=== PATIENT | male | born 1965 | race Caucasian/White ===

== ENCOUNTER → 2018-08-07 | Day surgery (SDC) | payer OTHER ==
[2018-08-07 10:37] VITALS: BP 127/83; PULSE 85; RESP 18; TEMP 98.1
[2018-08-07 10:48] LABS: Basophils # (A) 0.1 k/uL (0-0.2); Basophils % (A) 1 %; Eosinophils # (A) 0.4 k/uL (0-0.7); Eosinophils % (A) 6 %; HCT 46.9 % (39.0-53.0); HGB 15.9 gm/dL (13.0-17.5); Lymphocytes # (A) 1.3 k/uL (1.0-4.8); Lymphocytes % (A) 22 %; MCHC 33.8 g/dL (31.0-37.0); MCV 82.8 fL (80.0-100.0); Mean Platelet Volume 6.9; Monocytes # (A) 0.4 k/uL (0-1.0); Monocytes % (A) 8 %; Neutrophils # (A) 3.4 k/uL (1.3-7.7); Neutrophils % (A) 61 %; Platelet Count 279 k/uL (150-450); RBC 5.67 m/uL (4.30-5.90); RDW 13.5 % (11.5-15.5); WBC 5.7 k/uL (3.8-10.6)
[2018-08-07 11:03] LABS: African American GFR (CKD) >90 (>60 ml/min/1.73 sqM); Anion Gap 12 mmol/L; Blood Urea Nitrogen 19 mg/dL (9-20); Carbon Dioxide 21 mmol/L (22-30); Chloride 105 mmol/L (98-107); Potassium 4.7 mmol/L (3.5-5.1); Sodium 138 mmol/L (137-145)
== END ==
LOC: CATHCVL 09:58
PROVIDERS: ATTEND Radiology Diagnostic Radiology
DX: E11.621 Type 2 diabetes mellitus with foot ulcer (principal); E78.00 Pure hypercholesterolemia, unspecified; Z83.3 Family history of diabetes mellitus; Z82.49 Family history of ischemic heart disease and other diseases of the circulatory system; Z79.84 Long term (current) use of oral hypoglycemic drugs; Z79.82 Long term (current) use of aspirin; Z79.899 Other long term (current) drug therapy; Z88.0 Allergy status to penicillin
CPT/HCPCS: 80051; 82565; 84520; 85025

== ENCOUNTER 2018-08-10 09:54 | Inpatient (IN) | payer OTHER ==
[2018-08-10 11:12] LABS: Basophils # (A) 0.1 k/uL (0-0.2); Basophils % (A) 1 %; Eosinophils # (A) 0.5 k/uL (0-0.7); Eosinophils % (A) 8 %; HCT 46.5 % (39.0-53.0); HGB 15.8 gm/dL (13.0-17.5); Lymphocytes # (A) 1.1 k/uL (1.0-4.8); Lymphocytes % (A) 17 %; MCH 28.4 pg (25.0-35.0); MCV 83.7 fL (80.0-100.0); Mean Platelet Volume 7.3; Monocytes # (A) 0.4 k/uL (0-1.0); Monocytes % (A) 7 %; Neutrophils % (A) 65 %; Platelet Count 267 k/uL (150-450); RBC 5.55 m/uL (4.30-5.90); RDW 15.8 % (11.5-15.5); WBC 6.1 k/uL (3.8-10.6)
[2018-08-10 11:15] LABS: Appearance,Urine Clear (Clear); Bilirubin,Urine Negative (Negative); Blood,Urine Negative (Negative); Color,Urine Light Yellow; Glucose,Urine (UA) 4+ (Negative); Ketones,Urine Negative (Negative); Leukocyte Esterase,Urine Negative (Negative); Nitrite,Urine Negative (Negative); Protein,Urine Negative (Negative); Specific Gravity,Urine 1.024 (1.001-1.035); Urobilinogen,Urine <2.0 mg/dL (<2.0)
[2018-08-10 11:20] LABS: ALT 27 U/L (21-72); AST 23 U/L (17-59); African American GFR (CKD) >90 (>60 ml/min/1.73 sqM); Albumin 4.5 g/dL (3.5-5.0); Alkaline Phosphatase 70 U/L (38-126); Anion Gap 15 mmol/L; Blood Urea Nitrogen 23 mg/dL (9-20); Calcium 9.2 mg/dL (8.4-10.2); Carbon Dioxide 20 mmol/L (22-30); Chloride 103 mmol/L (98-107); Glucose 215 mg/dL (74-99); Potassium 4.7 mmol/L (3.5-5.1); Sodium 138 mmol/L (137-145); Total Bilirubin 0.5 mg/dL (0.2-1.3); Total Protein 7.1 g/dL (6.3-8.2)
[2018-08-10] MEDS: SODIUM CHLORIDE 0.9% 500 ML 500 ML IV SCH (11:20)
--- NOTE | 2018-08-10 11:32 | XR ---
EXAMINATION TYPE: XR foot complete LT DATE OF EXAM: 08/10/2018 CLINICAL HISTORY: Nonhealing ulcer of the plantar aspect of the left foot. TECHNIQUE: Frontal, lateral, and oblique images of the left foot are obtained. COMPARISON: None FINDINGS: There is no acute fracture/dislocation evident in the left foot. Small vessel atheroscler osis is seen throughout. The joint spaces in the left foot appear within normal limits. The overlyin g soft tissue appears unremarkable. Superficial dressing is seen over the plantar aspect of the proxi mal phalanges on the lateral view. No periosteal reaction or osseous erosion is seen on the left foot . There is a moderate plantar enthesophyte. No subcutaneous emphysema in the focal soft tissue swelli ng seen deep to the superficial skin dressing. IMPRESSION: 1. Soft tissue swelling over the plantar aspect of the left forefoot without osseous findings to sugg est osteomyelitis. No subcutaneous emphysema is seen. 2. No acute fracture or dislocation in the left foot.
[2018-08-10] MEDS ORDERED: SODIUM CHLORIDE 0.9% 1,000 ML IV STA (11:45)
--- NOTE | 2018-08-10 11:49 | ED ---
General Adult HPI - General Chief complaint: Extremity Problem,Nontraumatic Stated complaint: Foot pain/infection Time Seen by Provider: 08/10/18 10:05 Source: patient, RN notes reviewed Mode of arrival: ambulatory Limitations: no limitations - History of Present Illness Initial comments: 53-year-old male with a past medical history of diabetes, CAD, hyperlipidemia presents to the emergency department for a chief complaint of diabetic foot ulcer. Patient states he has had an ulcer on the bottom of his left foot for several weeks. States he has been on oral antibiotics including Bactrim and 2 other unknown antibiotics for the past 3 weeks as well. States that he was supposed to have a PICC line placed for IV antibiotics on Friday but his insur karma did not except this so it the last night he could not have PICC line in placed. Patient states that over the weekend he started worsening redness of the left foot as well as pain. States his infectious disease doctor is concerned it may be into his bone. States that when he called today they wanted him to be seen in the emergency department for possible IV antibiotics as well as ID consult. Patient denies fevers or chills.Patient has no other complaints at this time including shortness of breath, chest pain, abdominal pain, nausea or vomiting, headache, or visual changes. - Related Data Home Medications Medication Instructions Recorded Confirmed Aspirin [Adult Low Dose Aspirin EC] 81 mg PO HS 08/06/18 08/10/18 Atorvastatin [Lipitor] 40 mg PO HS 08/06/18 08/10/18 Ertugliflozin Pidolate [Steglatro] 15 mg PO DAILY 08/06/18 08/10/18 Ticagrelor [Brilinta] 90 mg PO BID 08/06/18 08/10/18 metFORMIN HCL [Glucophage] 1,000 mg PO BID 08/06/18 08/10/18 sitaGLIPtin [Januvia] 100 mg PO DAILY 08/06/18 08/10/18 Sulfamethoxazole/Trimethoprim 1 tab PO BID 08/10/18 08/10/18 [Bactrim DS 800-160 mg] Allergies Allergy/AdvReac Type Severity Reaction Status Date / Time Penicillins Allergy Anaphylaxis Verified 08/10/18 10:39 Review of Systems ROS Statement: Those systems with pertinent positive or pertinent negative responses have been documented in the HPI. ROS Other: All systems not noted in ROS Statement are negative. Past Medical History Past Medical History: Coronary Artery Disease (CAD), Diabetes Mellitus, Hyperlipidemia History of Any Multi-Drug Resistant Organisms: None Reported Past Surgical History: Back Surgery, Heart Catheterization With Stent, Orthopedic Surgery Past Psychological History: No Psychological Hx Reported Smoking Status: Never smoker Past Alcohol Use History: Occasional Past Drug Use History: None Reported General Exam Limitations: no limitations General appearance: alert, in no apparent distress Head exam: Present: atraumatic, normocephalic, normal inspection Eye exam: Present: normal appearance, PERRL, EOMI. Absent: scleral icterus, conjunctival injection, periorbital swelling ENT exam: Present: normal exam, mucous membranes moist Neck exam: Present: normal inspection, full ROM. Absent: tenderness, meningismus, lymphadenopathy Respiratory exam: Present: normal lung sounds bilaterally. Absent: respiratory distress, wheezes, rales, rhonchi, stridor Cardiovascular Exam: Present: regular rate, normal rhythm, normal heart sounds. Absent: systolic murmur, diastolic murmur, rubs, gallop, clicks Extremities exam: Present: full ROM (Full Range motion of the left foot.), normal capillary refill (Capillary refill less than 2 seconds, DP pulse 2+ in the left lower extremity), other (ulcer noted over plantar 4th and 5th MTP with some involvement between 4th and 5th digits of left foot. mild erthema and edema noted of left foot) Course Vital Signs 08/10/18 09:58 Temperature 97.6 F Pulse Rate 106 H Respiratory 16 Rate Blood Pressure 136/76 O2 Sat by Pulse 97 Oximetry Medical Decision Making - Medical Decision Making 53-year-old male with a past medical history of diabetes, CAD, hyperlipidemia presents to the emergency determine for chief clean of diabetic foot ulcer. States he has been on his left foot for several weeks. States that he has been on 3 courses of oral antibiotics including Bactrim. He was supposed a PICC line placed on Friday but his insurance did not cover it so he did not have this done. States over the weekend he started worsening pain redness and swelling in the left foot. States that he called his infectious disease doctor and he told them to come to the emergency department for admission for IV antibiotics and infectious disease consult. On exam patient does have a small diabetic ulcer noted with erythema noted of the plantar and dorsal left foot. Mild edema present. She was initially tachycardic at 106 however this did decreased to the 80s. CBC shows a normal white count. CMP is unremarkable. However lactic acid 3.1. 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 X-ray of the left foot showed soft tissue swelling however no osseous finding to suggest osteomyelitis or subcutaneous emphysema seen. Case was discussed with Dr. patterson, patient will be admitted for IV antibiotics and infectious disease consult. - Lab Data Result diagrams: 08/10/18 10:54 08/10/18 10:54 Lab Results 08/10/18 08/10/18 08/10/18 Range/Units 10:54 10:54 10:54 WBC 6.1 (3.8-10.6) k/uL RBC 5.55 (4.30-5.90) m/uL Hgb 15.8 (13.0-17.5) gm/dL Hct 46.5 (39.0-53.0) % MCV 83.7 (80.0-100.0) fL MCH 28.4 (25.0-35.0) pg MCHC 34.0 (31.0-37.0) g/dL RDW 15.8 H (11.5-15.5) % Plt Count 267 (150-450) k/uL Neutrophils % 65 % Lymphocytes % 17 % Monocytes % 7 % Eosinophils % 8 % Basophils % 1 % Neutrophils # 4.0 (1.3-7.7) k/uL Lymphocytes # 1.1 (1.0-4.8) k/uL Monocytes # 0.4 (0-1.0) k/uL Eosinophils # 0.5 (0-0.7) k/uL Basophils # 0.1 (0-0.2) k/uL Sodium 138 (137-145) mmol/L Potassium 4.7 (3.5-5.1) mmol/L Chloride 103 (98-107) mmol/L Carbon Dioxide 20 L (22-30) mmol/L Anion Gap 15 mmol/L BUN 23 H (9-20) mg/dL Creatinine 0.97 (0.66-1.25) mg/dL Est GFR (CKD-EPI)AfAm >90 (>60 ml/min/1.73 sqM) Est GFR (CKD-EPI)NonAf >90 (>60 ml/min/1.73 sqM) Glucose 215 H (74-99) mg/dL Plasma Lactic Acid Ian 3.1 H* (0.7-2.0) mmol/L Calcium 9.2 (8.4-10.2) mg/dL Total Bilirubin 0.5 (0.2-1.3) mg/dL AST 23 (17-59) U/L ALT 27 (21-72) U/L Alkaline Phosphatase 70 (38-126) U/L Total Protein 7.1 (6.3-8.2) g/dL Albumin 4.5 (3.5-5.0) g/dL Urine Color Urine Appearance (Clear) Urine pH (5.0-8.0) Ur Specific [place] (1.001-1.035) Urine Protein (Negative) Urine Glucose (UA) (Negative) Urine Ketones (Negative) Urine Blood (Negative) Urine Nitrite (Negative) Urine Bilirubin (Negative) Urine Urobilinogen (<2.0) mg/dL Ur Leukocyte Esterase (Negative) 08/10/18 Range/Units 10:54 WBC (3.8-10.6) k/uL RBC (4.30-5.90) m/uL Hgb (13.0-17.5) gm/dL Hct (39.0-53.0) % MCV (80.0-100.0) fL MCH (25.0-35.0) pg MCHC (31.0-37.0) g/dL RDW (11.5-15.5) % Plt Count (150-450) k/uL Neutrophils % % Lymphocytes % % Monocytes % % Eosinophils % % Basophils % % Neutrophils # (1.3-7.7) k/uL Lymphocytes # (1.0-4.8) k/uL Monocytes # (0-1.0) k/uL Eosinophils # (0-0.7) k/uL Basophils # (0-0.2) k/uL Sodium (137-145) mmol/L Potassium (3.5-5.1) mmol/L Chloride (98-107) mmol/L Carbon Dioxide (22-30) mmol/L Anion Gap mmol/L BUN (9-20) mg/dL Creatinine (0.66-1.25) mg/dL Est GFR (CKD-EPI)AfAm (>60 ml/min/1.73 sqM) Est GFR (CKD-EPI)NonAf (>60 ml/min/1.73 sqM) Glucose (74-99) mg/dL Plasma Lactic Acid Ian (0.7-2.0) mmol/L Calcium (8.4-10.2) mg/dL Total Bilirubin (0.2-1.3) mg/dL AST (17-59) U/L ALT (21-72) U/L Alkaline Phosphatase (38-126) U/L Total Protein (6.3-8.2) g/dL Albumin (3.5-5.0) g/dL Urine Color Light Yellow Urine Appearance Clear (Clear) Urine pH 5.0 (5.0-8.0) Ur Specific [place] 1.024 (1.001-1.035) Urine Protein Negative (Negative) Urine Glucose (UA) 4+ H (Negative) Urine Ketones Negative (Negative) Urine Blood Negative (Negative) Urine Nitrite Negative (Negative) Urine Bilirubin Negative (Negative) Urine Urobilinogen <2.0 (<2.0) mg/dL Ur Leukocyte Esterase Negative (Negative) Disposition Clinical Impression: Ulcer, Cellulitis Disposition: ADMITTED IP TO THIS HOSP Condition: Fair Is patient prescribed a controlled substance at d/c from ED?: No Referrals: Kwabena Bettencourt MD [Primary Care Provider] - 1-2 days Time of Disposition: 12:09
[2018-08-10] MEDS ORDERED: LEVOFLOXACIN 750MG-D5W PMX 750 MG in DEXTROSE/WATER 1 150ML.BAG IVPB STA (12:03)
[2018-08-10] MEDS ORDERED: traMADol 50 MG TAB PO PRN (12:04)
[2018-08-10] MEDS ORDERED: IBUPROFEN 400 MG TAB PO PRN (12:04)
[2018-08-10] MEDS ORDERED: NALOXONE 0.4 MG/ML 1 ML VIAL IV PRN (12:04)
[2018-08-10] MEDS ORDERED: CLINDAMYCIN 600 MG in DEXTROSE 5% IN WATER 50 ML IVPB ONE ×2 (12:15)
[2018-08-10] MEDS: SODIUM CHLORIDE 0.9% 1,000 ML IV SCH ×2 (12:28→23:04)
[2018-08-10 13:41] VITALS: BMI 39.1
[2018-08-10] MEDS ORDERED: CLINDAMYCIN 600 MG in DEXTROSE 5% IN WATER 50 ML IVPB STA ×2 (14:44)
[2018-08-10 17:04] LABS: Glucose,Whole Blood 120 mg/dL (75-99)
[2018-08-10] MEDS: INSULIN ASPART (NovoLOG) 100 UNIT/ML VIAL SQ SCH ×2 (17:07→20:42)
[2018-08-10] MEDS ORDERED: metFORMIN 500 MG TAB PO SCH (17:30)
[2018-08-10] MEDS: PIPERACILLIN-TAZOBACTAM 3.375 GM in SODIUM CHLORIDE 0.9% 100 ML IVPB SCH ×2 (17:45→23:29)
[2018-08-10] MEDS: metFORMIN 500 MG TAB PO SCH (17:45)
[2018-08-10] MEDS ORDERED: CLINDAMYCIN 600 MG in DEXTROSE 5% IN WATER 50 ML IVPB SCH ×2 (20:00)
--- NOTE | 2018-08-10 20:02 | P.HPIM ---
Review of Systems this is a pleasant 53 yo M with pmh of type 2 Diabetes Mellitus, hypertension, coronary artery disease status post stents, diabetic neuropathy, hyperlipidemia, diabetic retinopathy, chronic low back pain. He presents because of diabetic left foot ulcer, for four weeks , referred by his infectious specialist to the emergency , his picc line is not placed for insurance issues. Vitas looks stable, not showing unremarkable CBC and BMP, liver enzymes not elevated. High lactic acid of 3.1. Urinalysis sewing glucosuria with no infection. Would x-ray: Looks having osteomyelitis with no subcutaneous emphysema or acute fracture as per radiologist. Patient was started on clindamycin, hypoperfusion, and pain management with normal saline at 100 ml per hour. Past Medical History Past Medical History: Coronary Artery Disease (CAD), Diabetes Mellitus, Hyperlipidemia, Pneumonia Additional Past Medical History / Comment(s): NIDDM type II, neuropathy bilateral feet and hands, bilateral eye retinopathy, R eye glaucoma and the starting of cataracts bilateral eyes, bronchitis, chronic low back pain, some clausterphobia, current L planter ulcer. History of Any Multi-Drug Resistant Organisms: None Reported Past Surgical History: Back Surgery, Heart Catheterization With Stent, Orthopedic Surgery Additional Past Surgical History / Comment(s): Lumbar discectomy, PCI wit total of 5 stents done at [facility], L foot debridement by health promotion coordinator, L rotator cuff repair, nasal fracture with surgery. Past Anesthesia/Blood Transfusion Reactions: No Reported Reaction Date of Last Stent Placement:: 2017 Smoking Status: Never smoker - Past Family History Father Family Medical History: Cancer, Coronary Artery Disease (CAD), Diabetes Mellitus Additional Family Medical History / Comment(s): Father had lung cancer. He was a smoker. He was also diabetic and had heart disease which he of at the age of 67yrs. Mother Family Medical History: Coronary Artery Disease (CAD), Diabetes Mellitus Additional Family Medical History / Comment(s): Mother had a pacer and AICD. She of heart disease at the age of 77yrs. Medications and Allergies Home Medications Medication Instructions Recorded Confirmed Type Aspirin [Adult Low Dose Aspirin EC] 81 mg PO HS 08/06/18 08/10/18 History Atorvastatin [Lipitor] 40 mg PO HS 08/06/18 08/10/18 History Ertugliflozin Pidolate [Steglatro] 15 mg PO DAILY 08/06/18 08/10/18 History Ticagrelor [Brilinta] 90 mg PO BID 08/06/18 08/10/18 History metFORMIN HCL [Glucophage] 1,000 mg PO BID 08/06/18 08/10/18 History sitaGLIPtin [Januvia] 100 mg PO DAILY 08/06/18 08/10/18 History Sulfamethoxazole/Trimethoprim 1 tab PO BID 08/10/18 08/10/18 History [Bactrim DS 800-160 mg] Allergies Allergy/AdvReac Type Severity Reaction Status Date / Time Penicillins Allergy Anaphylaxis Verified 08/10/18 10:39 Physical Exam Vitals: Vital Signs Temp Pulse Pulse Resp BP BP Pulse Ox 08/10/18 12:45 97.8 F 88 16 120/81 98 08/10/18 12:31 85 18 119/81 98 08/10/18 09:58 97.6 F 106 H 16 136/76 97 Intake and Output 08/09/18 08/10/18 08/10/18 22:59 06:59 14:59 Other: Voiding Method Toilet Weight 113.398 kg GENERAL: The patient is alert and oriented x3, not in any acute distress. Well developed, well nourished. HEENT: Pupils are round and equally reacting to light. EOMI. No scleral icterus. No conjunctival pallor. Normocephalic, atraumatic. No pharyngeal erythema. No thyromegaly. CARDIOVASCULAR: S1 and S2 present. No murmurs, rubs, or gallops. PULMONARY: Chest is clear to auscultation, no wheezing or crackles. ABDOMEN: Soft, nontender, nondistended, normoactive bowel sounds. No palpable organomegaly. MUSCULOSKELETAL: No joint swelling or deformity. EXTREMITIES: No cyanosis, clubbing, or pedal edema. NEUROLOGICAL: Gross neurological examination did not reveal any focal deficits. SKIN: No rashes. Results CBC & Chem 7: 08/10/18 10:54 08/10/18 10:54 Labs: Abnormal Lab Results - Last 24 Hours (Table) 08/10/18 08/10/18 08/10/18 Range/Units 10:54 10:54 10:54 RDW 15.8 H (11.5-15.5) % Carbon Dioxide 20 L (22-30) mmol/L BUN 23 H (9-20) mg/dL Glucose 215 H (74-99) mg/dL Plasma Lactic Acid Ian 3.1 H* (0.7-2.0) mmol/L Urine Glucose (UA) (Negative) 08/10/18 Range/Units 10:54 RDW (11.5-15.5) % Carbon Dioxide (22-30) mmol/L BUN (9-20) mg/dL Glucose (74-99) mg/dL Plasma Lactic Acid Ian (0.7-2.0) mmol/L Urine Glucose (UA) 4+ H (Negative) Thrombosis Risk Factor Assmnt - Choose All That Apply Any of the Below Risk Factors Present?: Yes Each Factor Represents 1 point: Age 41-60 years, Obesity (BMI >25) Other Risk Factors: No Other congenital or acquired thrombophilia - If yes, enter type in comment: No Thrombosis Risk Factor Assessment Total Risk Factor Score: 2 Thrombosis Risk Factor Assessment Level: Low Risk Assessment and Plan Assessment: Diabetic left foot ulcer Type 2 diabetes mellitus Diabetic neuropathy High lactic acid Diabetic neuropathy History of coronary artery disease, status post stenting Hypertension Hyperlipidemia Plan: This is a pleasant 53 years old male who presents with diabetic left foot ulcer. Continue with antibiotics, called infectious disease consult. Continue with diabetes management and insulin sliding scale.Labs and medication were reviewed.. Continue same treatment. Continue with symptomatic treatment. Resume home medication. Monitor lytes and vitals. DVT and GI prophylaxis. Further recommendations of the clinical course of the patient DVT prophylaxis: Subcutaneous heparin GI Prophylaxis: Pepcid PT/OT: Pending Prognosis is guarded
[2018-08-10 20:43] LABS: Glucose,Whole Blood 121 mg/dL (75-99)
[2018-08-10] MEDS: ASPIRIN 81 MG PO SCH (21:28)
[2018-08-10] MEDS: TICAGRELOR 90 MG TAB PO SCH (21:28)
[2018-08-10] MEDS: ATORVASTATIN 40 MG TAB PO SCH (21:28)
[2018-08-10] MEDS: FAMOTIDINE 20 MG/2 ML VIAL IV SCH (21:29)
[2018-08-10] MEDS: HEPARIN SODIUM,PORCINE 5,000 UNIT/ML 1 ML VIAL SQ SCH ×2 (21:29→21:32)
[2018-08-10] MEDS: AMMONIUM LACTATE 12% LOTION 225 GM BTL TOPICAL SCH (21:31)
--- NOTE | 2018-08-11 00:24 | P.CONS ---
History of Present Illness - Reason for Consult Consult date: 08/10/18 - Chief Complaint Foot wound - History of Present Illness 53-year-old male that has a long-standing history of medical illnesses includes diabetes mellitus type 2 poorly controlled with hemoglobin A1c last December of greater than 11 and last check was about 7.4. The patient has significant underlying hypertension, cardiovascular disease and had obstructive lesions which required cardiac catheterization and stents. He remains on Effient after his procedures. The patient has had approximately a 40 pound weight loss over the last 5-6 months and over the last year or so approximately 100 pound weight loss. 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 He doesn't have diabetic shoes. He relates that he's noticed approximate 4 weeks ago the onset of an ulceration to the left foot plantar surface for which he applied some local care. It appeared to worsen over the weeks and eventually went and saw his primary care physician and was referred to podiatry. The conference planner referred him to an infusion Center in [place]. There was concern to acute osteomyelitis and workup was initiated and PICC line and outpatient clinic antibiotic therapy was requested. They're barely were some insurance issues the patient was suggested to go to the emergency center for further evaluation. He apparently called his doctor and asked if Friday would be okay today presented to the ER today. There is evidence of an underlying diabetic foot infection and does have some early radiological changes of osteomyelitis because he was admitted and a consult was requested. Review of Systems HEENT:Denies headache or acute visual change. Denies sinus or mouth discomforts. Denies neck stiffness or pain. Denies significant oral cavity pain. Denies difficulty on swallowing. Lungs: Denies significant shortness of breath, cough, sputum production, or hemoptysis. Cardiovascular: Denies significant shortness of breath, chest pain, chest wall pain, orthopnea, dyspnea on exertion, syncope Gastrointestinal:Denies nausea, vomiting, diarrhea, constipation, hematemesis, melena, hematochezia. No no significant change of bowel habit noticed. Musculoskeletal: Has some pain to his lower extremities apparently from some neuropathy as well as some mild arthritis Skin: Per the HPI he has new ulceration to the left foot plantar Neuro: Denies headache or visual change. No falls or seizures or known acute neurological problems but does have some chronic neuropathy from his uncontrolled diabetes Psychiatric:Denies anxiety or depression. Endocrine: Is doing well with fatigue and has purposely had weight loss at least 40 pounds over the last approximate 5 months Past Medical History Past Medical History: Coronary Artery Disease (CAD), Diabetes Mellitus, Hyperlipidemia, Pneumonia Additional Past Medical History / Comment(s): NIDDM type II, neuropathy bilateral feet and hands, bilateral eye retinopathy, R eye glaucoma and the starting of cataracts bilateral eyes, bronchitis, chronic low back pain, some clausterphobia, current L planter ulcer. History of Any Multi-Drug Resistant Organisms: None Reported Past Surgical History: Back Surgery, Heart Catheterization With Stent, Orthopedic Surgery Additional Past Surgical History / Comment(s): Lumbar discectomy, PCI wit total of 5 stents done at [facility], foot debridement by conference planner, L rotator cuff repair, nasal fracture with surgery. Past Anesthesia/Blood Transfusion Reactions: No Reported Reaction Date of Last Stent Placement:: 2017 Additional Psychological History / Comment(s): and lives in the family home with his and teenage son. Works for [employer] as a shipping clerk. experience. International travel. No animals in the home. No tobacco use. No recreational drug use or significant alcohol use is related Smoking Status: Never smoker - Past Family History Father Family Medical History: Cancer, Coronary Artery Disease (CAD), Diabetes Mellitus Additional Family Medical History / Comment(s): Father had lung cancer. He was a smoker. He was also diabetic and had heart disease which he of at the age of 67yrs. Mother Family Medical History: Coronary Artery Disease (CAD), Diabetes Mellitus Additional Family Medical History / Comment(s): Mother had a pacer and AICD. She of heart disease at the age of 77yrs. Medications and Allergies Home Medications and Allergies Comment(s): Current Medications Aspirin (Aspirin) 81 mg PO HS [facility] Last Admin: 08/10/18 21:28 Dose: 81 mg Documented by: Atorvastatin Calcium (Lipitor) 40 mg PO HS [facility] Last Admin: 08/10/18 21:28 Dose: 40 mg Documented by: Famotidine (Pepcid) 20 mg IV Q12HR [facility] Last Admin: 08/10/18 21:29 Dose: 20 mg Documented by: Heparin Sodium (Porcine) (Heparin) 5,000 unit SQ Q12HR [facility] Last Admin: 08/10/18 21:32 Dose: Not Given Documented by: Clindamycin Phosphate 600 mg/ (Dextrose/Water) 54 mls @ 50 mls/hr IVPB Q8H [facility] Last Admin: 08/10/18 21:30 Dose: 50 mls/hr Documented by: Sodium Chloride (Saline 0.9%) 1,000 mls @ 75 mls/hr IV .[id number] [facility] Last Admin: 08/10/18 23:04 Dose: Not Given Documented by: Piperacillin Sod/Tazobactam (Sod 3.375 gm/ Sodium Chloride) 100 mls @ 25 mls/hr IVPB Q8HR [facility] Last Admin: 08/10/18 23:29 Dose: 25 mls/hr Documented by: Insulin Aspart (Novolog) 0 unit SQ ACHS [facility]; Protocol Last Admin: 08/10/18 20:42 Dose: Not Given Documented by: Lactic Acid (Lac-Hydrin 12%) 1 applic TOPICAL BID [facility] Last Admin: 08/10/18 21:31 Dose: Not Given Documented by: Linagliptin (Tradjenta) 5 mg PO DAILY [facility] Metformin HCl (Glucophage) 1,000 mg PO BID-W/MEALS [facility] Last Admin: 08/10/18 17:45 Dose: 1,000 mg Documented by: Naloxone HCl (Narcan) 0.2 mg IV Q2M PRN PRN Reason: Opioid Reversal Ticagrelor (Brilinta) 90 mg PO BID [facility] Last Admin: 08/10/18 21:28 Dose: 90 mg Documented by: Tramadol HCl (Ultram) 50 mg PO Q6H PRN PRN Reason: Moderate Pain Home Medications Medication Instructions Recorded Confirmed Type Aspirin [Adult Low Dose Aspirin EC] 81 mg PO HS 08/06/18 08/10/18 History Atorvastatin [Lipitor] 40 mg PO HS 08/06/18 08/10/18 History Ertugliflozin Pidolate [Steglatro] 15 mg PO DAILY 08/06/18 08/10/18 History Ticagrelor [Brilinta] 90 mg PO BID 08/06/18 08/10/18 History metFORMIN HCL [Glucophage] 1,000 mg PO BID 08/06/18 08/10/18 History sitaGLIPtin [Januvia] 100 mg PO DAILY 08/06/18 08/10/18 History Sulfamethoxazole/Trimethoprim 1 tab PO BID 08/10/18 08/10/18 History [Bactrim DS 800-160 mg] Allergies Allergy/AdvReac Type Severity Reaction Status Date / Time Penicillins Allergy Anaphylaxis Verified 08/10/18 10:39 Physical Exam Vitals: Vital Signs Temp Pulse Pulse Resp BP BP Pulse Ox 08/10/18 21:00 98.0 F 100 20 110/74 97 08/10/18 12:45 97.8 F 88 16 120/81 98 08/10/18 12:31 85 18 119/81 98 08/10/18 09:58 97.6 F 106 H 16 136/76 97 Intake and Output 08/10/18 08/10/18 08/11/18 14:59 22:59 06:59 Intake Total 400 500 Balance 400 500 Intake: Oral 400 500 Other: Voiding Method Toilet Toilet # Voids 1 1 Weight 113.398 kg 53-year-old male with obesity, seems comfortable HEENT: Anicteric conjunctiva are pink and moist nasal mucosa grossly intact without significant lesions, there is no thrush. Dentition somewhat poor for age Neck: The neck is supple without significant lymphadenopathy or thyromegaly. Lungs: Good bilateral air entry without significant crackles or wheezing. There is no significant bronchial sounds. There is no egophony or dullness. Heart: Regular rate and rhythm with an audible S1-S2, no S3 soft S4 There is no significant murmur click or rub, PMI was nondisplaced. Abdomen: Obese, Positive bowel sounds soft and nontender without palpable masses or organomegaly. There was no guarding or rebound. Extremities: The upper extremities have excellent pulses they are symmetric, no significant petechiae or telangiectasia. No splinter hemorrhages were noted. The right lower extremities without acute abnormalities. The left foot shows evidence of the diabetic ulceration at the base of the fourth metatarsal, there is evidence of the swelling to the fourth and fifth toes with some ulceration at the base of both toes. There is some swelling to the foot. Some mild erythema to the left lower extremity to just above the ankle. There is minimal tenderness in the left groin with minimal lymphadenopathy but no other palpable lymph nodes are noted the rest of the skin is without rash or breakdown Neuro: Awake alert oriented to person place and time. There are no acute new gross focal sensory motor deficits. But does have the difficulty with the neuropathy to the bilateral feet. Results CBC & Chem 7: 08/10/18 10:54 08/10/18 10:54 Labs: Abnormal Lab Results - Last 24 Hours (Table) 08/10/18 08/10/18 08/10/18 Range/Units 10:54 10:54 10:54 RDW 15.8 H (11.5-15.5) % Carbon Dioxide 20 L (22-30) mmol/L BUN 23 H (9-20) mg/dL Glucose 215 H (74-99) mg/dL POC Glucose (mg/dL) (75-99) mg/dL Plasma Lactic Acid Ian 3.1 H* (0.7-2.0) mmol/L Urine Glucose (UA) (Negative) 08/10/18 08/10/18 08/10/18 Range/Units 10:54 17:02 20:37 RDW (11.5-15.5) % Carbon Dioxide (22-30) mmol/L BUN (9-20) mg/dL Glucose (74-99) mg/dL POC Glucose (mg/dL) 120 H 121 H (75-99) mg/dL Plasma Lactic Acid Ian (0.7-2.0) mmol/L Urine Glucose (UA) 4+ H (Negative) Microbiology - Last 24 Hours (Table) 08/10/18 16:30 Anaerobic Culture - Preliminary Foot - Left 08/10/18 16:30 Wound Culture - Preliminary Foot - Left Laboratory Results WBC 6.1 k/uL (3.8-10.6) 08/10/18 10:54 RBC 5.55 m/uL (4.30-5.90) 08/10/18 10:54 Hgb 15.8 gm/dL (13.0-17.5) 08/10/18 10:54 Hct 46.5 % (39.0-53.0) 08/10/18 10:54 MCV 83.7 fL (80.0-100.0) 08/10/18 10:54 MCH 28.4 pg (25.0-35.0) 08/10/18 10:54 MCHC 34.0 g/dL (31.0-37.0) 08/10/18 10:54 RDW 15.8 % (11.5-15.5) H 08/10/18 10:54 Plt Count 267 k/uL (150-450) 08/10/18 10:54 Neutrophils % 65 % 08/10/18 10:54 Lymphocytes % 17 % 08/10/18 10:54 Monocytes % 7 % 08/10/18 10:54 Eosinophils % 8 % 08/10/18 10:54 Basophils % 1 % 08/10/18 10:54 Neutrophils # 4.0 k/uL (1.3-7.7) 08/10/18 10:54 Lymphocytes # 1.1 k/uL (1.0-4.8) 08/10/18 10:54 Monocytes # 0.4 k/uL (0-1.0) 08/10/18 10:54 Eosinophils # 0.5 k/uL (0-0.7) 08/10/18 10:54 Basophils # 0.1 k/uL (0-0.2) 08/10/18 10:54 Sodium 138 mmol/L (137-145) 08/10/18 10:54 Potassium 4.7 mmol/L (3.5-5.1) 08/10/18 10:54 Chloride 103 mmol/L (98-107) 08/10/18 10:54 Carbon Dioxide 20 mmol/L (22-30) L 08/10/18 10:54 Anion Gap 15 mmol/L 08/10/18 10:54 BUN 23 mg/dL (9-20) H 08/10/18 10:54 Creatinine 0.97 mg/dL (0.66-1.25) 08/10/18 10:54 Est GFR (CKD-EPI)AfAm >90 (>60 ml/min/1.73 sqM) 08/10/18 10:54 Est GFR (CKD-EPI)NonAf >90 (>60 ml/min/1.73 sqM) 08/10/18 10:54 Glucose 215 mg/dL (74-99) H 08/10/18 10:54 POC Glucose (mg/dL) 121 mg/dL (75-99) H 08/10/18 20:37 POC Glu Tower Hand ID Yanna Craft 08/10/18 20:37 Lactic Ac Sepsis Rflx Y 08/10/18 11:25 Plasma Lactic Acid Ian 1.6 mmol/L (0.7-2.0) 08/10/18 14:43 Calcium 9.2 mg/dL (8.4-10.2) 08/10/18 10:54 Total Bilirubin 0.5 mg/dL (0.2-1.3) 08/10/18 10:54 AST 23 U/L (17-59) 08/10/18 10:54 ALT 27 U/L (21-72) 08/10/18 10:54 Alkaline Phosphatase 70 U/L (38-126) 08/10/18 10:54 Total Protein 7.1 g/dL (6.3-8.2) 08/10/18 10:54 Albumin 4.5 g/dL (3.5-5.0) 08/10/18 10:54 Urine Color Light Yellow 08/10/18 10:54 Urine Appearance Clear (Clear) 08/10/18 10:54 Urine pH 5.0 (5.0-8.0) 08/10/18 10:54 Ur Specific [place] 1.024 (1.001-1.035) 08/10/18 10:54 Urine Protein Negative (Negative) 08/10/18 10:54 Urine Glucose (UA) 4+ (Negative) H 08/10/18 10:54 Urine Ketones Negative (Negative) 08/10/18 10:54 Urine Blood Negative (Negative) 08/10/18 10:54 Urine Nitrite Negative (Negative) 08/10/18 10:54 Urine Bilirubin Negative (Negative) 08/10/18 10:54 Urine Urobilinogen <2.0 mg/dL (<2.0) 08/10/18 10:54 Ur Leukocyte Esterase Negative (Negative) 08/10/18 10:54 Microbiology 08/10/18 16:30 Foot - Left Anaerobic Culture - Preliminary 08/10/18 16:30 Foot - Left Wound Culture - Preliminary Assessment and Plan (1) Cellulitis of left foot Current Visit: Yes Status: Acute Code(s): L03.116 - CELLULITIS OF LEFT LOWER LIMB SNOMED Code(s): 846169517 (2) Diabetic ulcer of left foot associated with diabetes mellitus due to underlying condition, with fat layer exposed Narrative/Plan: 53-year-old male who has been having difficulties with his left foot for approximately 4 weeks. He has noticed an extensive medical history that includes underlying coronary disease status post stents, hypertension, diabetes mellitus type 2 very poorly controlled for a long time has more recently had improvements of his diabetic control he relates last A1c was 7.4. He's also had approximately a 40 pound weight loss since last December. The patient is really had some improvements but now has a complication of a diabetic foot ulceration and with his neuropathy has gotten a bit worse. He did seek outpatient care ended up in infectious disease physician in [place] and was referred to our facility. He was to come to the ER on Friday but chose today instead. At this time is evidence of diabetic foot ulceration and likely has underlying osteomyelitis. Bone scan as requested, wound culture is obtained. Patient will elevate the foot while he is in hospital. Therahoney dressing is been requested will change it daily for now. We'll continue to work with the diabetes care and appropriate high-protein diet to an help with wound healing Multivitamin with zinc is added. Is to have diabetic therapy the patient has a childhood ALLERGY to penicillin but he is really unaware of what occurred, has taken Keflex without difficulties. He recently has been on outpatient lab accident included ciprofloxacin, clindamycin, and Bactrim endostatin improvement. Consequently concerned about a polymicrobial infection related to the diabetic foot and Zosyn has been started and is being monitored. Current Visit: Yes Status: Acute Code(s): E08.621 - DIABETES MELLITUS DUE TO UNDERLYING CONDITION W FOOT ULCER; L97.522 - NON-PRS CHRONIC ULCER OTH PRT LEFT FOOT W FAT LAYER EXPOSED SNOMED Code(s): 149700466
[2018-08-11 07:38] LABS: Glucose,Whole Blood 151 mg/dL (75-99)
[2018-08-11] MEDS: metFORMIN 500 MG TAB PO SCH ×2 (07:47→17:33)
[2018-08-11] MEDS: LINAGLIPTIN 5 MG TABLET PO SCH (07:48)
[2018-08-11] MEDS: MULTIVITAMINS, THERA 1 EACH TAB PO SCH (07:48)
[2018-08-11] MEDS: FAMOTIDINE 20 MG/2 ML VIAL IV SCH (07:48)
[2018-08-11] MEDS: INSULIN ASPART (NovoLOG) 100 UNIT/ML VIAL SQ SCH ×4 (07:48→20:27)
[2018-08-11] MEDS: TICAGRELOR 90 MG TAB PO SCH ×2 (07:48→20:27)
[2018-08-11] MEDS: PIPERACILLIN-TAZOBACTAM 3.375 GM in SODIUM CHLORIDE 0.9% 100 ML IVPB SCH ×2 (07:49→15:39)
[2018-08-11] MEDS: AMMONIUM LACTATE 12% LOTION 225 GM BTL TOPICAL SCH ×2 (07:49→20:27)
[2018-08-11] MEDS: HEPARIN SODIUM,PORCINE 5,000 UNIT/ML 1 ML VIAL SQ SCH ×2 (07:49→20:27)
[2018-08-11 10:05] LABS: Basophils % (A) 1 %; Eosinophils # (A) 0.5 k/uL (0-0.7); Eosinophils % (A) 9 %; HCT 46.9 % (39.0-53.0); HGB 15.4 gm/dL (13.0-17.5); Lymphocytes # (A) 0.8 k/uL (1.0-4.8); Lymphocytes % (A) 16 %; MCH 27.5 pg (25.0-35.0); MCHC 32.8 g/dL (31.0-37.0); MCV 83.9 fL (80.0-100.0); Mean Platelet Volume 6.7; Monocytes # (A) 0.4 k/uL (0-1.0); Monocytes % (A) 7 %; Neutrophils # (A) 3.4 k/uL (1.3-7.7); Neutrophils % (A) 65 %; Platelet Count 277 k/uL (150-450); RBC 5.58 m/uL (4.30-5.90); RDW 13.5 % (11.5-15.5); WBC 5.3 k/uL (3.8-10.6)
[2018-08-11] MEDS: SODIUM CHLORIDE 0.9% 1,000 ML IV SCH (10:11)
[2018-08-11 10:44] LABS: African American GFR (CKD) >90 (>60 ml/min/1.73 sqM); Anion Gap 10 mmol/L; Blood Urea Nitrogen 15 mg/dL (9-20); Calcium 9.1 mg/dL (8.4-10.2); Carbon Dioxide 23 mmol/L (22-30); Chloride 106 mmol/L (98-107); Glucose 152 mg/dL (74-99); Potassium 5.3 mmol/L (3.5-5.1); Sodium 139 mmol/L (137-145)
--- NOTE | 2018-08-11 11:47 | P.PN ---
Subjective this is a pleasant 53 yo M with pmh of type 2 Diabetes Mellitus, hypertension, coronary artery disease status post stents, diabetic neuropathy, hyperlipidemia, diabetic retinopathy, chronic low back pain. He presents because of diabetic left foot ulcer, for four weeks , referred by his infectious specialist to the emergency , his picc line is not placed for insurance issues. Vitas looks stable, not showing unremarkable CBC and BMP, liver enzymes not elevated. High lactic acid of 3.1. Urinalysis sewing glucosuria with no infection. Would x-ray: Looks having osteomyelitis with no subcutaneous emphysema or acute fracture as per radiologist. Patient was started on clindamycin, hypoperfusion, and pain management with normal saline at 100 ml per hour. 08/11/2018 Patient is still complaining of from his diverticular foot ulcer, pain co ntrolled. Infectious disease consult is appreciated. Workup has been ordered including bone scan to rule out osteomyelitis. He remains on antibiotics Zosyn as per ID recommendation. Also his on IV fluids normal saline at 50 mL per hour. His pain is better controlled with pain medication. Patient sugars also controlled well and metformin and continue not to obtain. Patient is currently on aspirin and the Brilinta, he states that he has 5 stents placed in his heart. Last November 2017 HEENT of thenar stents. Patient currently denies chest pain or dyspnea. He follows up with Dr. Collins as his pattern hanger as an outpatient. Review of system CONSTITUTIONAL: No fever, no malaise, no fatigue. HEENT: No recent visual problems or hearing problems. Denied any sore throat. CARDIOVASCULAR: No orthopnea, PND, no palpitations, no syncope. PULMONARY: No shortness of breath, no cough, no hemoptysis. GASTROINTESTINAL: No diarrhea, no nausea, no vomiting, no abdominal pain. Nor moactive bowel sounds. NEUROLOGICAL: No headaches, no weakness, no numbness. HEMATOLOGICAL: Denies any bleeding or petechiae. GENITOURINARY: Denies any burning micturition, frequency, or urgency. MUSCULOSKELETAL/RHEUMATOLOGICAL: Denies any joint pain, swelling, or any muscle pain. ENDOCRINE: Denies any polyuria or polydipsia. Medication: Aspirin 81 mg, Lipitor 40 mg Pepcid 20 mg, heparin 5000 units, insulin sliding scale with NovoLog, linagliptin 5 mg, metformin 1000, multivitamin tablets 1 tablet, Zosyn 3.375 mg, normal saline at 50 mL per hour, Brilinta 90 mg, Ultram 50 mg. Objective - Vital Signs Vital signs: Vital Signs Temp 97.9 F 08/11/18 05:00 Pulse 71 08/11/18 05:00 Resp 18 08/11/18 05:00 BP 91/54 08/11/18 05:00 Pulse Ox 99 08/11/18 05:00 Intake & Output 08/10/18 08/11/18 08/11/18 18:59 06:59 18:59 Intake Total 400 1000 Balance 400 1000 Weight 113.398 kg Intake: Oral 400 1000 Other: Voiding Method Toilet Toilet Toilet # Voids 1 2 2 - Exam GENERAL: The patient is alert and oriented x3, not in any acute distress. Well developed, well nourished. HEENT: Pupils are round and equally reacting to light. EOMI. No scleral icterus. No conjunctival pallor. Normocephalic, atraumatic. No pharyngeal erythema. No thyromegaly. CARDIOVASCULAR: S1 and S2 present. No murmurs, rubs, or gallops. PULMONARY: Chest is clear to auscultation, no wheezing or crackles. ABDOMEN: Soft, nontender, nondistended, normoactive bowel sounds. No palpable organomegaly. MUSCULOSKELETAL: No joint swelling or deformity. -EXTREMITIES: No cyanosis, clubbing, or pedal edema. left foot is with ulcer on the planter surface of the fourth left toe and between 4th and 5th toes. NEUROLOGICAL: Gross neurological examination did not reveal any focal deficits. SKIN: No rashes. - Labs CBC & Chem 7: 08/11/18 09:30 08/11/18 09:30 Labs: Abnormal Lab Results - Last 24 Hours (Table) 08/10/18 08/10/18 08/11/18 Range/Units 17:02 20:37 07:35 Lymphocytes # (1.0-4.8) k/uL Potassium (3.5-5.1) mmol/L Glucose (74-99) mg/dL POC Glucose (mg/dL) 120 H 121 H 151 H (75-99) mg/dL 08/11/18 08/11/18 Range/Units 09:30 09:30 Lymphocytes # 0.8 L (1.0-4.8) k/uL Potassium 5.3 H (3.5-5.1) mmol/L Glucose 152 H (74-99) mg/dL POC Glucose (mg/dL) (75-99) mg/dL Microbiology - Last 24 Hours (Table) 08/10/18 16:30 Gram Stain - Preliminary Foot - Left Wound Culture - Preliminary 08/10/18 16:30 Anaerobic Culture - Preliminary Foot - Left Assessment and Plan Assessment: Diabetic left foot ulcer, rule out osteomyelitis Type 2 diabetes mellitus Diabetic neuropathy High lactic acid Diabetic neuropathy History of coronary artery disease, status post stenting Hypertension Hyperlipidemia Plan: This is a pleasant 53 years old male who presents with diabetic left foot ulcer. Continue with antibiotics, called infectious disease consult, followed a recommendation. Continue with diabetes management and insulin sliding scale.Labs and medication were reviewed.. Continue same treatment. Continue with symptomatic treatment. Resume home medication. Monitor lytes and vitals. DVT and GI prophylaxis. Further recommendations of the clinical course of the patient DVT prophylaxis: Subcutaneous heparin GI Prophylaxis: Pepcid PT/OT: Pending Prognosis is guarded
--- NOTE | 2018-08-11 12:16 | NM ---
EXAMINATION TYPE: NM bone 3 phase DATE OF EXAM: 08/11/2018 COMPARISON: Plain film 08/10/2018 HISTORY: Osteomyelitis left foot Triple phase bone scintigraphy was performed following the injection of 25.8 mCi Tc 99m MDP. Immedia te images and 4 hours post injection images acquired. FINDINGS: Increased blood flow and blood pool activity is noted to the left foot as compared to the r ight, delayed imaging shows diffuse increased uptake within the soft tissues of the left foot and ank le as compared to right. Suggestion of increased uptake on blood pool, blood flow imaging the level o f the distal fourth metatarsal, suggestion of more focal uptake at the fourth metatarsal distally on delayed images. IMPRESSION: Findings compatible with osteomyelitis to the fourth metatarsal head.
[2018-08-11 12:27] LABS: Glucose,Whole Blood 108 mg/dL (75-99)
[2018-08-11] MEDS ORDERED: LIDOCAINE 1% INJ 10MG/ML (20 ML MDV) SQ ONE (13:33)
[2018-08-11 17:15] LABS: Glucose,Whole Blood 184 mg/dL (75-99)
[2018-08-11 20:06] LABS: Glucose,Whole Blood 176 mg/dL (75-99)
[2018-08-11] MEDS: FAMOTIDINE 20 MG TAB PO SCH (20:27)
[2018-08-11] MEDS: ASPIRIN 81 MG PO SCH (20:27)
[2018-08-11] MEDS: ATORVASTATIN 40 MG TAB PO SCH (20:27)
[2018-08-11 22:35] LABS: Hemoglobin A1C 7.9 % (4.0-6.0)
--- NOTE | 2018-08-12 06:40 | P.PN ---
Subjective Progress Note Date: 08/11/18 53-year-old male that has a long-standing history of medical illnesses includes diabetes mellitus type 2 poorly controlled with hemoglobin A1c last December of greater than 11 and last check was about 7.4. The patient has significant underlying hypertension, cardiovascular disease and had obstructive lesions which required cardiac catheterization and stents. He remains on Effient after his procedures. The patient has had approximately a 40 pound weight loss over the last 5-6 months and over the last year or so approximately 100 pound weight loss. 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 He doesn't have diabetic shoes. He relates that he's noticed approximate 4 weeks ago the onset of an ulceration to the left foot plantar surface for which he applied some local care. It appeared to worsen over the weeks and eventually went and saw his primary care physician and was referred to podiatry. The finisher machine referred him to an infusion Center in [place]. There was concern to acute osteomyelitis and workup was initiated and PICC line and outpatient clinic antibiotic therapy was requested. They're barely were some insurance issues the patient was suggested to go to the emergency center for further evaluation. He apparently called his doctor and asked if Friday would be okay today presented to the ER today. There is evidence of an underlying diabetic foot infection and does have some early radiological changes of osteomyelitis because he was admitted and a consult was requested. 08/11/2018 The patient is feeling slightly better today. Foot swelling and pain have slightly improved. Is denying other acute new difficulties. Objective - Vital Signs Vital signs: Vital Signs Temp 97.8 F 08/12/18 04:55 Pulse 75 08/12/18 04:55 Resp 16 08/12/18 04:55 BP 111/66 08/12/18 04:55 Pulse Ox 98 08/12/18 04:55 Intake & Output 08/11/18 08/11/18 08/12/18 06:59 18:59 06:59 Intake Total 1000 240 Balance 1000 240 Weight 113.398 kg Intake: Oral 1000 240 Other: Voiding Method Toilet Toilet Toilet # Voids 2 2 2 - Exam 53-year-old male with obesity, seems comfortable HEENT: Anicteric conjunctiva are pink and moist nasal mucosa grossly intact without significant lesions, there is no thrush. Dentition somewhat poor for age Neck: The neck is supple without significant lymphadenopathy or thyromegaly. Lungs: Good bilateral air entry without significant crackles or wheezing. There is no significant bronchial sounds. There is no egophony or dullness. Heart: Regular rate and rhythm with an audible S1-S2, no S3 soft S4 There is no significant murmur click or rub, PMI was nondisplaced. Abdomen: Obese, Positive bowel sounds soft and nontender without palpable masses or organomegaly. There was no guarding or rebound. Extremities: The upper extremities have excellent pulses they are symmetric, no significant petechiae or telangiectasia. No splinter hemorrhages were noted. The right lower extremities without acute abnormalities. The left foot shows evidence of the diabetic ulceration at the base of the fourth metatarsal, there is evidence of the swelling to the fourth and fifth toes with some ulceration at the base of both toes. There is some swelling to the foot. Some mild erythema to the left lower extremity to just above the ankle. There is minimal tenderness in the left groin with minimal lymphadenopathy but no other palpable lymph nodes are noted the rest of the skin is without rash or breakdown Neuro: Awake alert oriented to person place and time. There are no acute new gross focal sensory motor deficits. But does have the difficulty with the neuropathy to the bilateral feet. - Labs CBC & Chem 7: 08/11/18 09:30 08/11/18 09:30 Labs: Abnormal Lab Results - Last 24 Hours (Table) 08/11/18 08/11/18 08/11/18 Range/Units 07:35 09:30 09:30 Lymphocytes # 0.8 L (1.0-4.8) k/uL Potassium 5.3 H (3.5-5.1) mmol/L Glucose 152 H (74-99) mg/dL POC Glucose (mg/dL) 151 H (75-99) mg/dL Hemoglobin A1c (4.0-6.0) % 08/11/18 08/11/18 08/11/18 Range/Units 09:30 12:25 17:11 Lymphocytes # (1.0-4.8) k/uL Potassium (3.5-5.1) mmol/L Glucose (74-99) mg/dL POC Glucose (mg/dL) 108 H 184 H (75-99) mg/dL Hemoglobin A1c 7.9 H (4.0-6.0) % 08/11/18 Range/Units 20:05 Lymphocytes # (1.0-4.8) k/uL Potassium (3.5-5.1) mmol/L Glucose (74-99) mg/dL POC Glucose (mg/dL) 176 H (75-99) mg/dL Hemoglobin A1c (4.0-6.0) % Microbiology - Last 24 Hours (Table) 08/10/18 16:30 Gram Stain - Preliminary Foot - Left Wound Culture - Preliminary Strep agalactiae - (group b) 08/10/18 10:54 Blood Culture - Preliminary Blood No Growth after 24 hours Laboratory Results WBC 5.3 k/uL (3.8-10.6) 08/11/18 09:30 RBC 5.58 m/uL (4.30-5.90) 08/11/18 09:30 Hgb 15.4 gm/dL (13.0-17.5) 08/11/18 09:30 Hct 46.9 % (39.0-53.0) 08/11/18 09:30 MCV 83.9 fL (80.0-100.0) 08/11/18 09:30 MCH 27.5 pg (25.0-35.0) 08/11/18 09:30 MCHC 32.8 g/dL (31.0-37.0) 08/11/18 09:30 RDW 13.5 % (11.5-15.5) 08/11/18 09:30 Plt Count 277 k/uL (150-450) 08/11/18 09:30 Neutrophils % 65 % 08/11/18 09:30 Lymphocytes % 16 % 08/11/18 09:30 Monocytes % 7 % 08/11/18 09:30 Eosinophils % 9 % 08/11/18 09:30 Basophils % 1 % 08/11/18 09:30 Neutrophils # 3.4 k/uL (1.3-7.7) 08/11/18 09:30 Lymphocytes # 0.8 k/uL (1.0-4.8) L 08/11/18 09:30 Monocytes # 0.4 k/uL (0-1.0) 08/11/18 09:30 Eosinophils # 0.5 k/uL (0-0.7) 08/11/18 09:30 Basophils # 0.0 k/uL (0-0.2) 08/11/18 09:30 ESR 6 mm/hr (0-15) 08/11/18 09:30 Sodium 139 mmol/L (137-145) 08/11/18 09:30 Potassium 5.3 mmol/L (3.5-5.1) H 08/11/18 09:30 Chloride 106 mmol/L (98-107) 08/11/18 09:30 Carbon Dioxide 23 mmol/L (22-30) 08/11/18 09:30 Anion Gap 10 mmol/L 08/11/18 09:30 BUN 15 mg/dL (9-20) 08/11/18 09:30 Creatinine 1.00 mg/dL (0.66-1.25) 08/11/18 09:30 Est GFR (CKD-EPI)AfAm >90 (>60 ml/min/1.73 sqM) 08/11/18 09:30 Est GFR (CKD-EPI)NonAf 87 (>60 ml/min/1.73 sqM) 08/11/18 09:30 Glucose 152 mg/dL (74-99) H 08/11/18 09:30 POC Glucose (mg/dL) 176 mg/dL (75-99) H 08/11/18 20:05 POC Glu Balance Wheel Hand Filer ID [place] Joya 08/11/18 20:[address] Glu mg/dL 180 08/11/18 09:30 Hemoglobin A1c 7.9 % (4.0-6.0) H 08/11/18 09:30 Lactic Ac Sepsis Rflx Y 08/10/18 11:25 Plasma Lactic Acid Ian 1.6 mmol/L (0.7-2.0) 08/10/18 14:43 Calcium 9.1 mg/dL (8.4-10.2) 08/11/18 09:30 Total Bilirubin 0.5 mg/dL (0.2-1.3) 08/10/18 10:54 AST 23 U/L (17-59) 08/10/18 10:54 ALT 27 U/L (21-72) 08/10/18 10:54 Alkaline Phosphatase 70 U/L (38-126) 08/10/18 10:54 C-Reactive Protein 9.6 mg/L (<10.0) 08/11/18 09:30 Total Protein 7.1 g/dL (6.3-8.2) 08/10/18 10:54 Albumin 4.5 g/dL (3.5-5.0) 08/10/18 10:54 Urine Color Light Yellow 08/10/18 10:54 Urine Appearance Clear (Clear) 08/10/18 10:54 Urine pH 5.0 (5.0-8.0) 08/10/18 10:54 Ur Specific [place] 1.024 (1.001-1.035) 08/10/18 10:54 Urine Protein Negative (Negative) 08/10/18 10:54 Urine Glucose (UA) 4+ (Negative) H 08/10/18 10:54 Urine Ketones Negative (Negative) 08/10/18 10:54 Urine Blood Negative (Negative) 08/10/18 10:54 Urine Nitrite Negative (Negative) 08/10/18 10:54 Urine Bilirubin Negative (Negative) 08/10/18 10:54 Urine Urobilinogen <2.0 mg/dL (<2.0) 08/10/18 10:54 Ur Leukocyte Esterase Negative (Negative) 08/10/18 10:54 Microbiology 08/10/18 16:30 Foot - Left Gram Stain - Preliminary 08/10/18 16:30 Foot - Left Wound Culture - Preliminary Strep agalactiae - (group b) 08/10/18 10:54 Blood Blood Culture - Preliminary No Growth after 24 hours 08/10/18 16:30 Foot - Left Anaerobic Culture - Preliminary - Imaging and Cardiology Bone scan has been completed report is awaited the films are reviewed and appears that there is an acute osteomyelitis to the left fourth metatarsal Assessment and Plan (1) Cellulitis of left foot Current Visit: Yes Status: Acute Code(s): L03.116 - CELLULITIS OF LEFT LOWER LIMB SNOMED Code(s): 984578698 (2) Diabetic ulcer of left foot associated with diabetes mellitus due to underlying condition, with fat layer exposed Narrative/Plan: 53-year-old male who has been having difficulties with his left foot for approximately 4 weeks. He has noticed an extensive medical history that includes underlying coronary disease status post stents, hypertension, diabetes mellitus type 2 very poorly controlled for a long time has more recently had improvements of his diabetic control he relates last A1c was 7.4. He's also had approximately a 40 pound weight loss since last December. The patient is really had some improvements but now has a complication of a diabetic foot ulceration and with his neuropathy has gotten a bit worse. He did seek outpatient care ended up in infectious disease physician in [place] and was referred to our facility. He was to come to the ER on Friday but chose today instead. At this time is evidence of diabetic foot ulceration and likely has underlying osteomyelitis. Bone scan as requested, wound culture is obtained. Patient will elevate the foot while he is in hospital. Therahoney dressing is been requested will change it daily for now. We'll continue to work with the diabetes care and appropriate high-protein diet to an help with wound healing Multivitamin with zinc is added. Is to have diabetic therapy the patient has a childhood ALLERGY to penicillin but he is really unaware of what occurred, has taken Keflex without difficulties. He recently has been on outpatient lab accident included ciprofloxacin, clindamycin, and Bactrim endostatin improvement. Consequently concerned about a polymicrobial infection related to the diabetic foot and Zosyn has been started and is being monitored. 08/11/2018 patient is having some improvement since admission. Local wound care with the therahoney seems to be helping. Offloading, diabetic care antibiotic therapy are starting to show some improvement of the erythema and swelling. Left groin tenderness is improving. Await the results of the bone scan and will start the process for home intravenous antibiotic therapy, working with the case management team given the patient's constraints. He will likely have [facility] paperwork. Current Visit: Yes Status: Acute Code(s): E08.621 - DIABETES MELLITUS DUE TO UNDERLYING CONDITION W FOOT ULCER; L97.522 - NON-PRS CHRONIC ULCER OTH PRT LEFT FOOT W FAT LAYER EXPOSED SNOMED Code(s): 545019971
[2018-08-12] MEDS: PIPERACILLIN-TAZOBACTAM 3.375 GM in SODIUM CHLORIDE 0.9% 100 ML IVPB SCH ×4 (06:56→23:33)
[2018-08-12] MEDS: SODIUM CHLORIDE 0.9% 1,000 ML IV SCH ×2 (06:56→23:32)
[2018-08-12] MEDS: INSULIN ASPART (NovoLOG) 100 UNIT/ML VIAL SQ SCH ×4 (07:27→21:35)
[2018-08-12] MEDS: MULTIVITAMINS, THERA 1 EACH TAB PO SCH (07:28)
[2018-08-12] MEDS: FAMOTIDINE 20 MG TAB PO SCH ×2 (07:28→21:34)
[2018-08-12] MEDS: metFORMIN 500 MG TAB PO SCH ×2 (07:28→17:25)
[2018-08-12] MEDS: TICAGRELOR 90 MG TAB PO SCH ×2 (07:28→21:34)
[2018-08-12] MEDS: LINAGLIPTIN 5 MG TABLET PO SCH (07:28)
[2018-08-12] MEDS: HEPARIN SODIUM,PORCINE 5,000 UNIT/ML 1 ML VIAL SQ SCH ×2 (07:28→21:36)
[2018-08-12 07:37] LABS: Glucose,Whole Blood 121 mg/dL (75-99)
[2018-08-12] MEDS: AMMONIUM LACTATE 12% LOTION 225 GM BTL TOPICAL SCH ×2 (08:06→21:36)
[2018-08-12 09:47] LABS: African American GFR (CKD) >90 (>60 ml/min/1.73 sqM); Anion Gap 10 mmol/L; Blood Urea Nitrogen 15 mg/dL (9-20); Calcium 9.1 mg/dL (8.4-10.2); Carbon Dioxide 26 mmol/L (22-30); Chloride 105 mmol/L (98-107); Glucose 176 mg/dL (74-99); Potassium 4.4 mmol/L (3.5-5.1); Sodium 141 mmol/L (137-145)
[2018-08-12 11:51] LABS: Glucose,Whole Blood 130 mg/dL (75-99)
[2018-08-12 17:03] LABS: Glucose,Whole Blood 143 mg/dL (75-99)
--- NOTE | 2018-08-12 19:59 | P.PN ---
Subjective this is a pleasant 53 yo M with pmh of type 2 Diabetes Mellitus, hypertension, coronary artery disease status post stents, diabetic neuropathy, hyperlipidemia, diabetic retinopathy, chronic low back pain. He presents because of diabetic left foot ulcer, for four weeks , referred by his infectious specialist to the emergency , his picc line is not placed for insurance issues. Vitas looks stable, not showing unremarkable CBC and BMP, liver enzymes not elevated. High lactic acid of 3.1. Urinalysis sewing glucosuria with no infection. Would x-ray: Looks having osteomyelitis with no subcutaneous emphysema or acute fracture as per radiologist. Patient was started on clindamycin, hypoperfusion, and pain management with normal saline at 100 ml per hour. 08/11/2018 Patient is still complaining of from his diverticular foot ulcer, pain co ntrolled. Infectious disease consult is appreciated. Workup has been ordered including bone scan to rule out osteomyelitis. He remains on antibiotics Zosyn as per ID recommendation. Also his on IV fluids normal saline at 50 mL per hour. His pain is better controlled with pain medication. Patient sugars also controlled well and metformin and continue not to obtain. Patient is currently on aspirin and the Brilinta, he states that he has 5 stents placed in his heart. Last November 2017 HEENT of thenar stents. Patient currently denies chest pain or dyspnea. He follows up with Dr. Collins as his contract engineer as an outpatient. 08/12/2018 pt is keep improving , pt has also osteomyelitis of his 4th metacarpal bone , pt has left picc line, he will need few week of antibiotic as per infectious disease recommendation, pt no chest pain or abd pain , he is tolerating diet well , he has two bouts of loose bowel movement , he will need to check stool for c diff. overall stable and possible discharge in 24/48 hours Objective - Vital Signs Vital signs: Vital Signs Temp 97.5 F L 08/12/18 12:49 Pulse 90 08/12/18 12:49 Resp 16 08/12/18 12:49 BP 116/84 08/12/18 12:49 Pulse Ox 97 08/12/18 12:49 Intake & Output 08/12/18 08/12/18 08/13/18 06:59 18:59 06:59 Intake Total 1080 Balance 1080 Intake: Oral 1080 Other: Voiding Method Toilet # Voids 2 2 - Exam GENERAL: The patient is alert and oriented x3, not in any acute distress. Well developed, well nourished. HEENT: Pupils are round and equally reacting to light. EOMI. No scleral icterus. No conjunctival pallor. Normocephalic, atraumatic. No pharyngeal erythema. No thyromegaly. CARDIOVASCULAR: S1 and S2 present. No murmurs, rubs, or gallops. PULMONARY: Chest is clear to auscultation, no wheezing or crackles. ABDOMEN: Soft, nontender, nondistended, normoactive bowel sounds. No palpable organomegaly. MUSCULOSKELETAL: No joint swelling or deformity. -EXTREMITIES: No cyanosis, clubbing, or pedal edema. left foot is with ulcer on the planter surface of the fourth left toe and between 4th and 5th toes. NEUROLOGICAL: Gross neurological examination did not reveal any focal deficits. SKIN: No rashes. - Labs CBC & Chem 7: 08/11/18 09:30 08/12/18 08:29 Labs: Abnormal Lab Results - Last 24 Hours (Table) 08/11/18 08/11/18 08/12/18 Range/Units 09:30 20:05 07:26 Glucose (74-99) mg/dL POC Glucose (mg/dL) 176 H 121 H (75-99) mg/dL Hemoglobin A1c 7.9 H (4.0-6.0) % 08/12/18 08/12/18 08/12/18 Range/Units 08:29 11:44 17:01 Glucose 176 H (74-99) mg/dL POC Glucose (mg/dL) 130 H 143 H (75-99) mg/dL Hemoglobin A1c (4.0-6.0) % Microbiology - Last 24 Hours (Table) 08/10/18 16:30 Gram Stain - Final Foot - Left Wound Culture - Final Strep agalactiae - (group b) 08/10/18 10:54 Blood Culture - Preliminary Blood No Growth after 48 hours Assessment and Plan Assessment: Diabetic left foot ulcer, rule out osteomyelitis diarrhea , rule out c diff Type 2 diabetes mellitus Diabetic neuropathy High lactic acid Diabetic neuropathy History of coronary artery disease, status post stenting Hypertension Hyperlipidemia Plan: This is a pleasant 53 years old male who presents with diabetic left foot ulcer. Continue with antibiotics, appreciate infectious disease consult,the pt is on antibiotics as per ID team. check for c diff, and make arrangement for discharge , social work assistant/case management on the case . Continue with diabetes management and insulin sliding scale.Labs and medication were reviewed.. Continue same treatment. Continue with symptomatic treatment. Resume home medication. Monitor lytes and vitals. DVT and GI prophylaxis. Further recommendations of the clinical course of the patient DVT prophylaxis: Subcutaneous heparin GI Prophylaxis: Pepcid PT/OT: home Prognosis is guarded
[2018-08-12 20:31] LABS: Glucose,Whole Blood 147 mg/dL (75-99)
[2018-08-12] MEDS: ATORVASTATIN 40 MG TAB PO SCH (21:34)
[2018-08-12] MEDS: ASPIRIN 81 MG PO SCH (21:35)
[2018-08-13 05:23] VITALS: BP 101/61; PULSE 73; RESP 16; TEMP 97.6
[2018-08-13 07:00] LABS: Glucose,Whole Blood 152 mg/dL (75-99)
[2018-08-13] MEDS: metFORMIN 500 MG TAB PO SCH (07:01)
[2018-08-13] MEDS: AMMONIUM LACTATE 12% LOTION 225 GM BTL TOPICAL SCH (07:01)
[2018-08-13] MEDS: MULTIVITAMINS, THERA 1 EACH TAB PO SCH (07:01)
[2018-08-13] MEDS: TICAGRELOR 90 MG TAB PO SCH (07:01)
[2018-08-13] MEDS: HEPARIN SODIUM,PORCINE 5,000 UNIT/ML 1 ML VIAL SQ SCH (07:01)
[2018-08-13] MEDS: PIPERACILLIN-TAZOBACTAM 3.375 GM in SODIUM CHLORIDE 0.9% 100 ML IVPB SCH (07:01)
[2018-08-13] MEDS: LINAGLIPTIN 5 MG TABLET PO SCH (07:01)
[2018-08-13] MEDS: INSULIN ASPART (NovoLOG) 100 UNIT/ML VIAL SQ SCH (07:01)
[2018-08-13] MEDS: FAMOTIDINE 20 MG TAB PO SCH (07:01)
--- NOTE | 2018-08-13 07:16 | P.DS ---
Providers Date of admission: 08/10/18 12:04 Attending physician: Jamie Fournier MD Consults: 08/10/18 12:04 Consult Physician Routine Consulting Provider: Magan Morales Consult Reason/Comments: diabetic foot ulcer, celllulitis failed out patient treatment Do you want consulting provider notified?: Yes Primary care physician: Kwabena Bettencourt MD Hospital Course: Diagnoses: Diabetic left foot ulcer, with osteomyelitis of the fourth metacarpal bone soft bowel movements, c diff test is negative History of coronary artery disease, status post 5 stents placement, lasted and November 2017. Patient currently on aspirin and Brilinta which he has at home. Type 2 diabetes mellitus Diabetic neuropathy High lactic acid Diabetic neuropathy Hypertension Hyperlipidemia Hospital course: this is a pleasant 53 yo M with pmh of type 2 Diabetes Mellitus, hypertension, coronary artery disease status post stents, diabetic neuropathy, hyperlipidemia, diabetic retinopathy, chronic low back pain. He presents because of diabetic left foot ulcer, for four weeks , referred by his infectious specialist to the emergency , Would x-ray: Looks having osteomyelitis of the fourth metacarpal bone, confirmed by bone scan. Patient has been treated by IV antibiotic, PICC line placed in the left arm and patient will be discharged on Invanz as per ID team recommendation. Patient feels improved and he is eager to go home. He denies chest pain or dyspnea. Denies abdominal pain or nausea or vomiting, he is tolerating his diet well. No change in urine habits or fever. He had 4 episodes of soft bowel movements yesterday, however C. diff was checked and came back negative. Physical therapy evaluated the patient and recommended home with no need for outpatient therapy. Patient was cleared for discharge by infectious disease team Problems and management plan were discussed with the patient and he verbalized understanding and acceptance Patient was found stable and can be discharged home however he needs follow-up as an outpatient. Patient was instructed to follow up with his PCP and infectious disease within one week and he agrees. Case was discussed with the staff, bedside nurse and family service caseworker Gen: patient is a AAOx3, no distress CVS: S1-S2, RRR, no murmur Lungs: B/L CTA, no wheezing Abdomen: soft, no distention, no tenderness, positive bowel sounds Extremity: no leg edema or induration Time spent more than 35 minutes Patient Condition at Discharge: Fair Plan - Discharge Summary Discharge Rx Participant: No New Discharge Prescriptions: New Ertapenem [INVanz] 1 gm IVPB Q24H #40 bag Ammonium Lactate Lotion [Lac-Hydrin 12% Lotion] 1 applic TOPICAL BID applic Continue sitaGLIPtin [Januvia] 100 mg PO DAILY Atorvastatin [Lipitor] 40 mg PO HS metFORMIN HCL [Glucophage] 1,000 mg PO BID Ertugliflozin Pidolate [Steglatro] 15 mg PO DAILY Aspirin [Adult Low Dose Aspirin EC] 81 mg PO HS Ticagrelor [Brilinta] 90 mg PO BID Discontinued Sulfamethoxazole/Trimethoprim [Bactrim DS 800-160 mg] 1 tab PO BID Discharge Medication List Aspirin [Adult Low Dose Aspirin EC] 81 mg PO HS 08/06/18 [History] Atorvastatin [Lipitor] 40 mg PO HS 08/06/18 [History] Ertugliflozin Pidolate [Steglatro] 15 mg PO DAILY 08/06/18 [History] Ticagrelor [Brilinta] 90 mg PO BID 08/06/18 [History] metFORMIN HCL [Glucophage] 1,000 mg PO BID 08/06/18 [History] sitaGLIPtin [Januvia] 100 mg PO DAILY 08/06/18 [History] Ertapenem [INVanz] 1 gm IVPB Q24H #40 bag 08/12/18 [Rx] Ammonium Lactate Lotion [Lac-Hydrin 12% Lotion] 1 applic TOPICAL BID applic 08/13/18 [Rx] Follow up Appointment(s)/Referral(s): Kwabena Bettencourt MD [Primary Care Provider] - 1-2 days Magan Morales MD [STAFF PHYSICIAN] - 1 Week [facility], [NON-STAFF] - Ambulatory/Diagnostic Orders: Basic Metabolic Panel [LAB.AMB] Location: None Selected Complete Blood Count w/diff [LAB.AMB] Location: None Selected Miscellaneous Lab Order [LAB.AMB] Location: None Selected Activity/Diet/Wound Care/Special Instructions: cardiac diet activity is limited till you see your doctor Discharge Disposition: HOME WITH HOME HEALTH SERVICES
[2018-08-13] MEDS ORDERED: ERTAPENEM 1 GM in SODIUM CHLORIDE 0.9% 50 ML IVPB STA (09:03)
--- NOTE | 2018-08-13 10:59 | IR ---
EXAMINATION TYPE: IR cvc insert >=5 years DATE OF EXAM: 08/11/2018 COMPARISON: NONE CLINICAL HISTORY: Infection Needs long-term intravenous access for antibiotics. PROCEDURE: After informed consent, the skin overlying the left basilic vein was localized with ultrasound and no rashmi to be compressible and patent. An ultrasound image was obtained and submitted on the patient's c crespo. The overlying skin was prepped and draped and Lidocaine was used for local anesthesia. A skin donal was made with a scalpel. Access was gained to the vein under ultrasound guidance with a 21 gau ge needle and a 0.018 inch wire was advanced. Access site was dilated with Peel-Away sheath and cath eter tailored to the appropriate length and advanced such that the distal tip is at the cavoatrial ju nction. Spot image was obtained verifying placement. Catheter was fixed to the skin and a sterile d ressing was placed following hemostasis. Catheter was aspirated and flushed with saline. Patient wa s discharged in stable condition without complication.Maximal barrier technique is utilized. Ultraso und image is documented on the chart. Ultrasound used with sterile technique. Fluoro time and fluoroscopic images submitted to document procedure: 418 intraoperative images, 0.8 m inutes fluoroscopy time IMPRESSION: STATUS POST ULTRASOUND AND FLUOROSCOPIC GUIDED PICC LINE PLACEMENT, READY FOR USE. THIS PROCEDURE WAS PERFORMED BY THE UNDERSIGNED.
== END 2018-08-13 10:31 | disposition home health service (06) | DRG 638 ==
LOC: EC 09:54 → 4MS4W 12:04
PROVIDERS: ADMIT Internal Medicine; ATTEND Internal Medicine
PROC: 02HV33Z Insertion of Infusion Device into Superior Vena Cava, Percutaneous Approach (ICD-10-PCS; principal; 2018-08-11 11:50)
DX: E11.69 Type 2 diabetes mellitus with other specified complication (principal); M86.172 Other acute osteomyelitis, left ankle and foot; L03.116 Cellulitis of left lower limb; E11.40 Type 2 diabetes mellitus with diabetic neuropathy, unspecified; E11.621 Type 2 diabetes mellitus with foot ulcer; E11.319 Type 2 diabetes mellitus with unspecified diabetic retinopathy without macular edema; E11.39 Type 2 diabetes mellitus with other diabetic ophthalmic complication; E11.36 Type 2 diabetes mellitus with diabetic cataract; L97.522 Non-pressure chronic ulcer of other part of left foot with fat layer exposed; H42 Glaucoma in diseases classified elsewhere; I10 Essential (primary) hypertension; I25.10 Atherosclerotic heart disease of native coronary artery without angina pectoris; E78.5 Hyperlipidemia, unspecified; G89.29 Other chronic pain; M54.5 Low back pain; Z79.82 Long term (current) use of aspirin; Z79.84 Long term (current) use of oral hypoglycemic drugs; Z79.02 Long term (current) use of antithrombotics/antiplatelets; Z79.899 Other long term (current) drug therapy; Z95.5 Presence of coronary angioplasty implant and graft; Z98.890 Other specified postprocedural states; Z87.01 Personal history of pneumonia (recurrent); Z88.0 Allergy status to penicillin; Z80.1 Family history of malignant neoplasm of trachea, bronchus and lung; Z82.49 Family history of ischemic heart disease and other diseases of the circulatory system; Z83.3 Family history of diabetes mellitus
CPT/HCPCS: 36415; 36573; 78315; 80048; 80053; 81003; 83036; 83605; 85025; 85652; 86140; 87040; 87070; 87075; 87205; 87324; 96360; 99284

== ENCOUNTER → 2018-09-07 | Outpatient (CLI) | payer OTHER ==
--- NOTE | 2018-09-07 13:33 | US ---
EXAMINATION TYPE: US venous doppler duplex LE DATE OF EXAM: 09/07/2018 9:07 AM COMPARISON: NONE CLINICAL HISTORY: E11.621 Type 2 diabetes mellitus w/ foot ulcer. No hx of blood clots. On aspirin. SIDE PERFORMED: Bilateral TECHNIQUE: The lower extremity deep venous system is examined utilizing real time linear array sonog allan with graded compression, doppler sonography and color-flow sonography. VESSELS IMAGED: External Iliac Vein (EIV) Common Femoral Vein Deep Femoral Vein Greater Saphenous Vein * Femoral Vein Popliteal Vein Small Saphenous Vein * Proximal Calf Veins (* superficial vessels) Right Leg: Negative for DVT Left Leg: Negative for DVT IMPRESSION: No evidence for DVT.
--- NOTE | 2018-09-09 09:45 | P.ARTDOP ---
Arterial Doppler LOWER EXTREMITY ARTERIAL DOPPLER: DATE OF SERVICE: 09/07/2018 Reason for study: Left foot ulcers. Doppler waveforms: Multiphasic bilaterally throughout. Pulse volume recording: Good toe waveforms. Pressure gradients: None significant. Ankle-brachial indices: Greater than 1 on the right and cannot occlude on the left. The right is also falsely elevated.. Toe pressures: 70 to on the right, 95 on the left Impression: Normal flow patterns bilaterally. High pressures at ankle level probably related to non-hemodynamically significant calcific wall disease..
== END | disposition home or self-care (01) ==
LOC: RADUSWWP 09:04
PROVIDERS: ATTEND Family Medicine
DX: I25.10 Atherosclerotic heart disease of native coronary artery without angina pectoris (principal); E11.621 Type 2 diabetes mellitus with foot ulcer; M86.20 Subacute osteomyelitis, unspecified site; L97.402 Non-pressure chronic ulcer of unspecified heel and midfoot with fat layer exposed
CPT/HCPCS: 93923; 93970

== ENCOUNTER 2018-10-10 14:47 | Inpatient (IN) | payer OTHER ==
[2018-10-10] MEDS ORDERED: SODIUM CHLORIDE 0.9% 1,000 ML IV ONE (15:18)
[2018-10-10] MEDS ORDERED: KETOROLAC 30 MG/ML 1 ML VIAL IVP STA (15:18)
[2018-10-10] MEDS ORDERED: cefTRIAXone IN SWFI 1,000 MG/10 ML SYRINGE IVP STA ×2 (15:24→16:10)
[2018-10-10] MEDS ORDERED: VANCOMYCIN IV PER PHARMACY 1 EACH MISC MISCELLANE PRN (15:24)
--- NOTE | 2018-10-10 15:30 | ED ---
General Adult HPI <Brandt Rodrigues - Last Filed: 10/10/18 16:56> - General Source: patient, RN notes reviewed, old records reviewed Mode of arrival: ambulatory Limitations: no limitations <Venecia Martin - Last Filed: 10/10/18 17:14> - General Chief complaint: Wound/Laceration Stated complaint: Foot infection Time Seen by Provider: 10/10/18 14:58 - History of Present Illness Initial comments: Patient has a 53-year-old male who presents emergency department today with left foot pain and swelling. He reports it started a few days ago. He states that [facility]. Patient reports that he will followed up with a surgeon after surgery started on a ntibiotics this past Friday. Patient has been taking clindamycin and ciprofloxacin. He states he has had continued redness and swelling over the left foot. Patient has had these recently treated for osteo-myelitis. He had the surgery to straighten out his fourth and fifth toe as well as his met atarsals on the fourth digit to have this removed from the ostia myelitis. His finisher denture is Dr. Townsend. Patient has previously been treated for this ostia myelitis and wound care way by Dr. Morales. He was told to come here for further evaluation and possible admission for failure of outpatient treatment. (SimeonyariVenecia) - Related Data Home Medications Medication Instructions Recorded Confirmed Aspirin [Adult Low Dose Aspirin EC] 81 mg PO HS 08/06/18 08/10/18 Atorvastatin [Lipitor] 40 mg PO HS 08/06/18 08/10/18 Ertugliflozin Pidolate [Steglatro] 15 mg PO DAILY 08/06/18 08/10/18 Ticagrelor [Brilinta] 90 mg PO BID 08/06/18 08/10/18 metFORMIN HCL [Glucophage] 1,000 mg PO BID 08/06/18 08/10/18 sitaGLIPtin [Januvia] 100 mg PO DAILY 08/06/18 08/10/18 Previous Rx's Medication Instructions Recorded Ertapenem [INVanz] 1 gm IVPB Q24H #40 bag 08/12/18 Ammonium Lactate Lotion 1 applic TOPICAL BID applic 08/13/18 [Lac-Hydrin 12% Lotion] Allergies Allergy/AdvReac Type Severity Reaction Status Date / Time Penicillins Allergy Anaphylaxis Verified 08/10/18 10:39 Review of Systems ROS Other: All systems not noted in ROS Statement are negative. <Brandt Rodrigues - Last Filed: 10/10/18 16:56> ROS Other: All systems not noted in ROS Statement are negative. <Venecia Martin - Last Filed: 10/10/18 17:14> ROS Statement: Those systems with pertinent positive or pertinent negative responses have been documented in the HPI. Past Medical History Past Medical History: Coronary Artery Disease (CAD), Diabetes Mellitus, Hyperlipidemia, Pneumonia Additional Past Medical History / Comment(s): NIDDM type II, neuropathy bilateral feet and hands, bilateral eye retinopathy, R eye glaucoma and the starting of cataracts bilateral eyes, bronchitis, chronic low back pain, some cl austerphobia, current L planter ulcer. History of Any Multi-Drug Resistant Organisms: None Reported Past Surgical History: Back Surgery, Heart Catheterization With Stent, Orthopedic Surgery Additional Past Surgical History / Comment(s): Lumbar discectomy, PCI wit total of 5 stents done at [facility], L foot debridement by finisher denture, L rotator cuff repair, nasal fracture with surgery. Past Anesthesia/Blood Transfusion Reactions: No Reported Reaction Date of Last Stent Placement:: 2017 Past Psychological History: No Psychological Hx Reported Smoking Status: Never smoker Past Alcohol Use History: None Reported Past Drug Use History: None Reported - Past Family History Father Family Medical History: Cancer, Coronary Artery Disease (CAD), Diabetes Mellitus Additional Family Medical History / Comment(s): Father had lung cancer. He was a smoker. He was also diabetic and had heart disease which he of at the age of 67yrs. Mother Family Medical History: Coronary Artery Disease (CAD), Diabetes Mellitus Additional Family Medical History / Comment(s): Mother had a pacer and AICD. She of heart disease at the age of 77yrs. <VeronicaVenecia - Last Filed: 10/10/18 17:14> General Exam Limitations: no limitations General appearance: alert, in no apparent distress Head exam: Present: atraumatic, normocephalic, normal inspection Eye exam: Present: normal appearance, PERRL, EOMI. Absent: scleral icterus, conjunctival injection, periorbital swelling ENT exam: Present: normal exam, mucous membranes moist Neck exam: Present: normal inspection. Absent: tenderness, meningismus, lymphadenopathy Respiratory exam: Present: normal lung sounds bilaterally. Absent: respiratory distress, wheezes, rales, rhonchi, stridor Cardiovascular Exam: Present: regular rate, normal rhythm, normal heart sounds. Absent: systolic murmur, diastolic murmur, rubs, gallop, clicks GI/Abdominal exam: Present: soft, normal bowel sounds. Absent: distended, tenderness, guarding, rebound, rigid Extremities exam: Present: normal inspection, full ROM, normal capillary refill, other (Patient has erythematous any over the dorsum of the left foot. Evidence of sutures over the fourth and fifth toe.). Absent: tenderness, pedal edema, joint swelling, calf tenderness Neurological exam: Present: alert, oriented X3, CN II-XII intact Psychiatric exam: Present: normal affect, normal mood Skin exam: Present: warm, dry, intact, normal color. Absent: rash <Venecia Martin - Last Filed: 10/10/18 17:14> Course <Brandt Rodrigues - Last Filed: 10/10/18 16:56> Vital Signs 10/10/18 10/10/18 14:48 16:00 Temperature 98.2 F Pulse Rate 101 H 94 Respiratory 18 18 Rate Blood Pressure 144/85 111/93 O2 Sat by Pulse 100 95 Oximetry - Reevaluation(s) Reevaluation #1: 10/10/18 16:56 Patient is ever should've [id number] evaluation the patient did discuss findings with him and his . I also discussed the case with Dr. Hernández. The patient will be admitted with ID consultation. (Brandt Rodrigues) Medical Decision Making - Lab Data Result diagrams: 10/10/18 15:30 10/10/18 15:30 <Brandt Rodrigues - Last Filed: 10/10/18 16:56> - Lab Data Result diagrams: 10/10/18 15:30 10/10/18 15:30 - Radiology Data Radiology results: report reviewed <Venecia Martin - Last Filed: 10/10/18 17:14> - Medical Decision Making This is a 53-year-old male presents today for evaluation with complaints of left foot infection. He had surgery on his foot on October 04. He had follow-up with a surgeon and placed on antibiotics on Friday with Cipro and clindamycin. Patient is concerned because the area of redness and swelling is worsening of the foot. Patient denies any fevers. This time Patient is concerned for recurrence of osteomyelitis. Patient's foot x-ray shows evidence of postsurgical changes. White blood cell count is normal. I did start Patient on Rocephin, and vancomycin. He is previously on ertapenem. I did obtain a wound culture but he is no significant drainage over site. Patient will be admitted this time with consult to infectious disease. (Venecia Martin) - Lab Data Lab Results 10/10/18 10/10/18 Range/Units 15:30 15:30 WBC 7.0 (3.8-10.6) k/uL RBC 5.36 (4.30-5.90) m/uL Hgb 14.9 (13.0-17.5) gm/dL Hct 43.8 (39.0-53.0) % MCV 81.7 (80.0-100.0) fL MCH 27.9 (25.0-35.0) pg MCHC 34.1 (31.0-37.0) g/dL RDW 13.7 (11.5-15.5) % Plt Count 327 (150-450) k/uL Neutrophils % 68 % Lymphocytes % 16 % Monocytes % 8 % Eosinophils % 6 % Basophils % 1 % Neutrophils # 4.8 (1.3-7.7) k/uL Lymphocytes # 1.1 (1.0-4.8) k/uL Monocytes # 0.6 (0-1.0) k/uL Eosinophils # 0.4 (0-0.7) k/uL Basophils # 0.1 (0-0.2) k/uL Sodium 140 (137-145) mmol/L Potassium 4.3 (3.5-5.1) mmol/L Chloride 105 (98-107) mmol/L Carbon Dioxide 23 (22-30) mmol/L Anion Gap 12 mmol/L BUN 18 (9-20) mg/dL Creatinine 0.94 (0.66-1.25) mg/dL Est GFR (CKD-EPI)AfAm >90 (>60 ml/min/1.73 sqM) Est GFR (CKD-EPI)NonAf >90 (>60 ml/min/1.73 sqM) Glucose 131 H (74-99) mg/dL Calcium 9.9 (8.4-10.2) mg/dL Total Bilirubin 0.5 (0.2-1.3) mg/dL AST 34 (17-59) U/L ALT 38 (21-72) U/L Alkaline Phosphatase 89 (38-126) U/L Total Protein 7.6 (6.3-8.2) g/dL Albumin 4.5 (3.5-5.0) g/dL - Radiology Data Postsurgical changes. No evidence of osteomyelitis. (Venecia Martin) Disposition <Brandt Rodrigues - Last Filed: 10/10/18 16:56> Is patient prescribed a controlled substance at d/c from ED?: No Time of Disposition: 17:14 <Venecia Martin - Last Filed: 10/10/18 17:14> Clinical Impression: Surgical site infection, Diabetic neuropathy, Failure of outpatient treatment, Hx of osteomyelitis Disposition: ADMITTED IP TO THIS HOSP Condition: Stable Referrals: Kwabena Bettencourt MD [Primary Care Provider] - 1-2 days
[2018-10-10 15:58] LABS: Basophils # (A) 0.1 k/uL (0-0.2); Basophils % (A) 1 %; Eosinophils # (A) 0.4 k/uL (0-0.7); Eosinophils % (A) 6 %; HCT 43.8 % (39.0-53.0); HGB 14.9 gm/dL (13.0-17.5); Lymphocytes # (A) 1.1 k/uL (1.0-4.8); Lymphocytes % (A) 16 %; MCH 27.9 pg (25.0-35.0); MCHC 34.1 g/dL (31.0-37.0); MCV 81.7 fL (80.0-100.0); Mean Platelet Volume 7.2; Monocytes # (A) 0.6 k/uL (0-1.0); Monocytes % (A) 8 %; Neutrophils # (A) 4.8 k/uL (1.3-7.7); Neutrophils % (A) 68 %; Platelet Count 327 k/uL (150-450); RBC 5.36 m/uL (4.30-5.90); RDW 13.7 % (11.5-15.5)
--- NOTE | 2018-10-10 15:58 | XR ---
EXAMINATION TYPE: XR foot complete LT DATE OF EXAM: 10/10/2018 COMPARISON: 08/10/2018 HISTORY: Pain and swelling TECHNIQUE: 3 views FINDINGS: There is osteotomy of the head of the proximal phalanx of the fourth and fifth toes. Metata rsals are intact. There is plantar calcaneal spurring. There is vascular calcification. IMPRESSION: Postsurgical changes. No evidence of osteomyelitis.
[2018-10-10] MEDS: SODIUM CHLORIDE 0.9% 1,000 ML IV SCH (16:02)
[2018-10-10 16:04] LABS: ALT 38 U/L (21-72); AST 34 U/L (17-59); African American GFR (CKD) >90 (>60 ml/min/1.73 sqM); Albumin 4.5 g/dL (3.5-5.0); Alkaline Phosphatase 89 U/L (38-126); Anion Gap 12 mmol/L; Blood Urea Nitrogen 18 mg/dL (9-20); Calcium 9.9 mg/dL (8.4-10.2); Carbon Dioxide 23 mmol/L (22-30); Chloride 105 mmol/L (98-107); Glucose 131 mg/dL (74-99); Potassium 4.3 mmol/L (3.5-5.1); Sodium 140 mmol/L (137-145); Total Bilirubin 0.5 mg/dL (0.2-1.3); Total Protein 7.6 g/dL (6.3-8.2)
[2018-10-10] MEDS ORDERED: VANCOMYCIN 2,000 MG in SODIUM CHLORIDE 0.9% 500 ML 500 ML IVPB ONE (16:30)
[2018-10-10] MEDS ORDERED: KETOROLAC 30 MG/ML 1 ML VIAL IVP PRN (17:14)
[2018-10-10] MEDS ORDERED: IBUPROFEN 400 MG TAB PO PRN (17:14)
[2018-10-10] MEDS ORDERED: NALOXONE 0.4 MG/ML 1 ML VIAL IV PRN (17:14)
[2018-10-10] MEDS ORDERED: ONDANSETRON 4 MG/2 ML VIAL IVP PRN (17:14)
[2018-10-10] MEDS ORDERED: oxyCODONE-APAP 5-325MG 1 EACH TAB PO PRN (17:14)
[2018-10-10] MEDS ORDERED: ALPRAZolam 0.25 MG TAB PO PRN (20:01)
[2018-10-10] MEDS ORDERED: HYDROmorphone 0.5 MG/0.5 ML SYRINGE IVP PRN (20:01)
[2018-10-10 20:13] LABS: Glucose,Whole Blood 91 mg/dL (75-99)
[2018-10-10] MEDS ORDERED: TEMAZEPAM 15 MG CAP PO PRN (21:00)
[2018-10-10] MEDS: HEPARIN SODIUM,PORCINE 5,000 UNIT/ML 1 ML VIAL SQ SCH (21:11)
[2018-10-10] MEDS: metFORMIN 500 MG TAB PO SCH (21:11)
[2018-10-10] MEDS: ASPIRIN 81 MG PO SCH (21:12)
[2018-10-10] MEDS: ATORVASTATIN 40 MG TAB PO SCH (21:13)
[2018-10-10] MEDS: TICAGRELOR 90 MG TAB PO SCH (21:52)
--- NOTE | 2018-10-10 22:28 | HP ---
HISTORY AND PHYSICAL DATE OF SERVICE: 10/10/2018 CHIEF COMPLAINT: Pain and swelling of the left foot. HISTORY OF PRESENT ILLNESS: This 53-year-old gentleman with a past medical history of diabetes, hypertension, hyperlipidemia, history of CAD/stent being followed by Dr. Adi Bettencourt in the outpatient setting previously admitted to [facility] with diabetic ulcer of the left foot and as well as osteomyelitis of the 4th left metatarsal bone. The patient was started on IV antibiotics and the patient received about [address] Morales saw the patient from Infectious Disease point of view. Subsequently patient was seen by Dr. Townsend, the order processing manager at [facility], who operated on the patient on of this month. A week later, the patient noticed some infection in the form of erythema. Patient was started on combination of Cipro and clindamycin. Because of lack of improvement, the patient came to [facility] and was admitted for further evaluation and treatment. The sutures are still in place. There is no history of fever, rigors or chills. No history of headache, loss of consciousness or seizures. The blood sugars have been controlled at between 100, 114, 150 according to him. PAST MEDICAL HISTORY: History of CAD, diabetes, hypertension, pneumonia, history of back surgery, CAD stent. MEDICATIONS: Home medications are: 1. Januvia 100 mg p.o. daily. 2. Glucophage 1000 mg p.o. b.i.d. 3. Brilinta 90 mg p.o. b.i.d. 4. Stagaltro 15 mg p.o. daily. 5. Lipitor 40 mg q.h.s. 6. Aspirin 81 mg p.o. daily. 7. Clindamycin 300 mg p.o. t.i.d. 8. Cipro 500 mg p.o. b.i.d. ALLERGIES: PENICILLIN. FAMILY HISTORY: History of CAD, diabetes in the family, lung cancer in the family. SOCIAL HISTORY: No history of smoking. Occasional alcohol intake. REVIEW OF SYSTEMS: ENT: No diminished vision. No diminished hearing. CARDIOVASCULAR: No angina or palpitations. RESPIRATIONS: No cough or hemoptysis. GI no nausea or vomiting. no dysuria. NERVOUS SYSTEM as mentioned earlier. ALLERGIES/IMMUNOLOGY: No asthma or hayfever. MUSCULOSKELETAL as mentioned earlier. HEMATOLOGY/ONCOLOGY: No history of anemia. ENDOCRINE: As mentioned earlier. CONSTITUTIONAL: As mentioned earlier. DERMATOLOGY mentioned earlier. RHEUMATOLOGY negative. PSYCHIATRY as mentioned earlier. PHYSICAL EXAMINATION: Alert and oriented x3. Pulse is 101. Blood pressure 145/85, respiration 18, temperature 98.2. Pulse ox 100 percent on room air. HEENT is conjunctivae normal. Oral mucosa moist. NECK is no jugular venous distention. No carotid bruit. No lymph node enlargement. Cardiovascular system: S1, S2 muffled. RESPIRATORY: Breath sounds diminished in the bases. No rhonchi. No crackles. ABDOMEN: Soft, nontender. No mass palpable. LEGS: Significant erythema and pain and swelling of the left foot present. Sutures in place between the 4th and 5th toe area. The diabetic foot ulcer is slightly tender, but still improving at this time. NERVOUS SYSTEM: Higher functions as mentioned earlier. Moves all 4 limbs. No focal motor or sensory deficits. LYMPHATICS: No lymph nodes palpable in the neck, axillae or groin. SKIN as mentioned earlier. JOINTS: No active deforming arthropathy. LABS: CBC within normal limits and glucose 131. ASSESSMENT: 1. Cellulitis of the left foot with failure of outpatient treatment. 2. Status post recent surgery with left foot. 3. History of left 4th metatarsal osteomyelitis, on IV antibiotic recently. 4. History of coronary artery disease. 5. Diabetes mellitus type 2. 6. Hyperlipidemia. 7. History of pneumonia. 8. History of peripheral neuropathy. 9. History of bilateral retinopathy. 10.Right eye glaucoma. 11.History of coronary artery disease/stent. 12.History of degenerative joint disease. 13.FULL CODE. 14.Obesity with body mass index 36.8. RECOMMENDATIONS AND DISCUSSION: This 53-year-old gentleman who presented with multiple medical issues, at this time I recommend to continue current medications, management and symptomatic treatment. Otherwise, at this time, resume the home medication. Monitor blood sugars closely, broad-spectrum IV antibiotics. Infectious disease evaluation. I will also obtain vascular surgery evaluation also. Prognosis guarded. Further recommendations to follow. Copy of dictation being forwarded to Dr. Kwabena Bettencourt who is the primary physician. MMODL / IJN: [id number] /
[2018-10-11] MEDS: SODIUM CHLORIDE 0.9% 1,000 ML IV SCH ×3 (04:09→23:50)
[2018-10-11] MEDS: VANCOMYCIN 1,750 MG in SODIUM CHLORIDE 0.9% 500 ML 500 ML IVPB SCH ×2 (05:30→17:51)
[2018-10-11 07:10] LABS: Glucose,Whole Blood 102 mg/dL (75-99)
[2018-10-11 07:59] LABS: Basophils # (A) 0.1 k/uL (0-0.2); Basophils % (A) 1 %; Eosinophils # (A) 0.5 k/uL (0-0.7); Eosinophils % (A) 9 %; HCT 43.7 % (39.0-53.0); HGB 14.9 gm/dL (13.0-17.5); Lymphocytes # (A) 1.2 k/uL (1.0-4.8); Lymphocytes % (A) 21 %; MCH 28.4 pg (25.0-35.0); MCV 83.5 fL (80.0-100.0); Mean Platelet Volume 6.7; Monocytes # (A) 0.4 k/uL (0-1.0); Monocytes % (A) 7 %; Neutrophils # (A) 3.3 k/uL (1.3-7.7); Neutrophils % (A) 60 %; Platelet Count 307 k/uL (150-450); RBC 5.24 m/uL (4.30-5.90); RDW 13.8 % (11.5-15.5); WBC 5.5 k/uL (3.8-10.6)
[2018-10-11] MEDS: PANTOPRAZOLE 40 MG TABLET PO SCH (08:04)
[2018-10-11] MEDS: STEGLATRO 15 MG PO SCH (08:06)
[2018-10-11] MEDS: HEPARIN SODIUM,PORCINE 5,000 UNIT/ML 1 ML VIAL SQ SCH ×2 (08:07→20:46)
[2018-10-11] MEDS: metFORMIN 500 MG TAB PO SCH ×2 (08:07→20:44)
[2018-10-11] MEDS: LINAGLIPTIN 5 MG TABLET PO SCH (08:07)
[2018-10-11] MEDS: TICAGRELOR 90 MG TAB PO SCH ×2 (08:08→20:45)
[2018-10-11 08:15] LABS: African American GFR (CKD) >90 (>60 ml/min/1.73 sqM); Anion Gap 10 mmol/L; Blood Urea Nitrogen 16 mg/dL (9-20); Calcium 8.8 mg/dL (8.4-10.2); Carbon Dioxide 25 mmol/L (22-30); Chloride 106 mmol/L (98-107); Glucose 114 mg/dL (74-99); Potassium 4.4 mmol/L (3.5-5.1); Sodium 141 mmol/L (137-145)
[2018-10-11 11:52] LABS: Glucose,Whole Blood 93 mg/dL (75-99)
[2018-10-11] MEDS: ACETAMINOPHEN TAB 325 MG TAB PO PRN ×2 (12:44→20:47)
[2018-10-11 16:41] VITALS: BMI 36.8
[2018-10-11 17:00] LABS: Glucose,Whole Blood 93 mg/dL (75-99)
--- NOTE | 2018-10-11 17:51 | PN ---
PROGRESS NOTE DATE OF SERVICE: 10/11/2018. This 53-year-old gentleman admitted with significant infection, cellulitis of the left foot and failure of outpatient treatment, is being closely monitored. Patient started on empiric antibiotics. Cultures are pending at this time. Infectious disease evaluation in progress. The patient also had blood sugars controlled at 114 at this time. No chest pain. No palpitations. No fever. EXAM: Alert and oriented times three. Pulse is 89. Blood pressure 114/81, respiration 16, temperature 97.2, pulse ox 97% on room air. HEENT: Conjunctivae normal. NECK: No JVD. CARDIOVASCULAR: S1, S2 muffled. RESPIRATIONS: Breath sounds diminished in the bases. No rhonchi. No crackles. ABDOMEN: Soft, nontender. No mass palpable. LEGS: Significant infection of the left foot present. Some erythema and tenderness also present. Sutures also present. LABS: CBC, BMP noted. ASSESSMENT: 1. Cellulitis of the left foot with failure of outpatient treatment. 2. Status post recent surgery of the left foot by outside dealer sales representative. 3. History of left 4th metatarsal osteomyelitis, was on IV antibiotic treatment recently. 4. History of coronary artery disease. 5. Diabetes mellitus type 2. 6. Hyperlipidemia. 7. History of pneumonia. 8. History of peripheral neuropathy. 9. History of bilateral retinopathy. 10.Right eye glaucoma. 11.History of coronary artery disease/stent. 12.History of degenerative joint disease. 13.Obesity with body mass index of 36.8. 14.FULL CODE. RECOMMENDATIONS AND DISCUSSION: Continue current medications, continue symptomatic treatment. Otherwise, at this time, I would recommend continue the current medication, continue symptomatic treatment. Otherwise at this time I would recommend follow the cultures. Monitor blood sugars closely. DVT prophylaxis. Further recommendations to follow. MMODL / IJN: [id number] /
[2018-10-11] MEDS: ATORVASTATIN 40 MG TAB PO SCH (20:45)
[2018-10-11] MEDS: ASPIRIN 81 MG PO SCH (20:45)
--- NOTE | 2018-10-11 23:21 | P.CONS ---
History of Present Illness - Reason for Consult Consult date: 10/11/18 - Chief Complaint Swelling erythema left foot - History of Present Illness 53-year-old male that has a long-standing history of medical illnesses includes diabetes mellitus type 2 poorly controlled with hemoglobin A1c last December of greater than 11 and last check was about 7.4. The patient has significant underlying hypertension, cardiovascular disease and had obstructive lesions which required cardiac catheterization and stents. He remains on Effient after his procedures. The patient has had approximately a 40 pound weight loss over the last 5-6 months and over the last year or so approximately 100 pound weight loss. 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 He developed significant diabetic foot infection and required surgical debridement from his welder first class and had an 8 week course of intravenous antibiotic therapy for underlying osteomyelitis. As he recovered from the significant infection he was seen by his welder first class and was taken to the operating room for revision of his left foot. With goal to realign the foot to take pressure off sites of ulceration. Postoperatively he did well but now presents with fever, chills, malaise and evidence of the significant worsening of the left foot. He developed significant erythema and some drainage tenderness and swelling. With this the consult was requested. He relates that he's been offloading the foot at home by walking on the heel and limiting his ambulation. He did not know exactly when he will be released to go back to work. Review of Systems HEENT:Denies headache or acute visual change. Denies sinus or mouth discomforts. Denies neck stiffness or pain. Denies significant oral cavity lamont n. Denies difficulty on swallowing. Lungs: Denies significant shortness of breath, cough, sputum production, or hemoptysis. Cardiovascular: Denies significant shortness of breath, chest pain, chest wall pain, orthopnea, dyspnea on exertion, syncope Gastrointestinal:Denies nausea, vomiting, diarrhea, constipation, hematemesis, melena, hematochezia. No no significant change of bowel habit noticed. Musculoskeletal: Has some pain to his lower extremities apparently from some neuropathy as well as some mild arthritis Skin: Per the HPI he has the erythema and swelling left foot Neuro: Denies headache or visual change. No falls or seizures or known acute neurological problems but does have some chronic neuropathy from his uncontrolled diabetes Psychiatric:Denies anxiety or depression. Endocrine: Is doing well with fatigue and has purposely had weight loss at least 40 pounds over the last any months Past Medical History Past Medical History: Coronary Artery Disease (CAD), Diabetes Mellitus, Hyperlipidemia, Pneumonia Additional Past Medical History / Comment(s): NIDDM type II, neuropathy bilateral feet and hands, bilateral eye retinopathy, R eye glaucoma and the starting of cataracts bilateral eyes, bronchitis, chronic low back pain, some clausterphobia, current L planter ulcer.osteomylitis History of Any Multi-Drug Resistant Organisms: None Reported Past Surgical History: Back Surgery, Heart Catheterization With Stent, Orthopedic Surgery Additional Past Surgical History / Comment(s): Lumbar discectomy, PCI wit total of 5 stents done at [facility], foot debridement by welder first class, L rotator cuff repair, nasal fracture with surgery. Past Anesthesia/Blood Transfusion Reactions: No Reported Reaction Date of Last Stent Placement:: 2017 Past Psychological History: No Psychological Hx Reported Additional Psychological History / Comment(s): and lives in the family home with his and teenage son. Works for [employer] as a shipping packer. experience. International travel. No animals in the home. No tobacco use. No recreational drug use or significant alcohol use is related Smoking Status: Never smoker Past Alcohol Use History: None Reported Past Drug Use History: None Reported - Past Family History Father Family Medical History: Cancer, Coronary Artery Disease (CAD), Diabetes Mellitus Additional Family Medical History / Comment(s): Father had lung cancer. He was a smoker. He was also diabetic and had heart disease which he of at the age of 67yrs. Mother Family Medical History: Coronary Artery Disease (CAD), Diabetes Mellitus Additional Family Medical History / Comment(s): Mother had a pacer and AICD. She of heart disease at the age of 77yrs. Medications and Allergies Home Medications and Allergies Comment(s): Current Medications Acetaminophen (Tylenol Tab) 650 mg PO Q6HR PRN PRN Reason: Mild Pain or Fever > 100.5 Last Admin: 10/11/18 20:47 Dose: 650 mg Documented by: Alprazolam (Xanax) 0.25 mg PO TID PRN PRN Reason: Anxiety Aspirin (Aspirin) 81 mg PO HS [facility] Last Admin: 10/11/18 20:45 Dose: 81 mg Documented by: Atorvastatin Calcium (Lipitor) 40 mg PO HS [facility] Last Admin: 10/11/18 20:45 Dose: 40 mg Documented by: Heparin Sodium (Porcine) (Heparin) 5,000 unit SQ Q12HR [facility] Last Admin: 10/11/18 20:46 Dose: Not Given Documented by: Hydromorphone HCl (Dilaudid) 0.5 mg IVP Q6HR PRN PRN Reason: Severe Pain Sodium Chloride (Saline 0.9%) 1,000 mls @ 100 mls/hr IV .Q10H [facility] Last Admin: 10/11/18 12:44 Dose: 100 mls/hr Documented by: Vancomycin HCl 1,750 mg/ (Sodium Chloride) 500 mls @ 167 mls/hr IVPB Q12H [facility] Last Admin: 10/11/18 17:51 Dose: 167 mls/hr Documented by: Ceftazidime 2 gm/ Sodium (Chloride) 100 mls @ 100 mls/hr IVPB Q8HR [facility] Last Admin: 10/11/18 16:32 Dose: 100 mls/hr Documented by: Ibuprofen (Motrin) 400 mg PO Q6HR PRN PRN Reason: Mild Pain or Fever > 100.5 Ketorolac Tromethamine (Toradol) 30 mg IVP Q6HR PRN PRN Reason: Moderate Pain Stop: 10/15/18 17:15 Linagliptin (Tradjenta) 5 mg PO DAILY [facility] Last Admin: 10/11/18 08:07 Dose: 5 mg Documented by: Metformin HCl (Glucophage) 1,000 mg PO BID [facility] Last Admin: 10/11/18 20:44 Dose: 1,000 mg Documented by: Miscellaneous Information (Vancomycin Trough Due) 0 each MISCELLANE DIRECTED ONE Stop: 10/12/18 17:01 Multivitamins (Theragran) 1 each PO DAILY [facility] Naloxone HCl (Narcan) 0.2 mg IV Q2M PRN PRN Reason: Opioid Reversal Steglatro ( Ertugliflozin Pidolate) 15 Mg 15 mg PO DAILY [facility] Last Admin: 10/11/18 08:06 Dose: 15 mg Documented by: Ondansetron HCl (Zofran) 4 mg IVP Q8HR PRN PRN Reason: Nausea And Vomiting Oxycodone/Acetaminophen (Percocet 5-325) 1 each PO Q4HR PRN PRN Reason: Severe Pain Pantoprazole Sodium (Protonix) 40 mg PO AC-BRKFST [facility] Last Admin: 10/11/18 08:04 Dose: 40 mg Documented by: Silver Sulfadiazine (Silvadene Cream) 1 applic TOPICAL DAILY [facility] Last Admin: 10/11/18 16:32 Dose: 1 applic Documented by: Temazepam (Restoril) 15 mg PO HS PRN PRN Reason: Insomnia Ticagrelor (Brilinta) 90 mg PO BID [facility] Last Admin: 10/11/18 20:45 Dose: 90 mg Documented by: Home Medications Medication Instructions Recorded Confirmed Type Aspirin [Adult Low Dose Aspirin EC] 81 mg PO HS 08/06/18 10/10/18 History Atorvastatin [Lipitor] 40 mg PO HS 08/06/18 10/10/18 History Ertugliflozin Pidolate [Steglatro] 15 mg PO DAILY 08/06/18 10/10/18 History Ticagrelor [Brilinta] 90 mg PO BID 08/06/18 10/10/18 History metFORMIN HCL [Glucophage] 1,000 mg PO BID 08/06/18 10/10/18 History sitaGLIPtin [Januvia] 100 mg PO DAILY 08/06/18 10/10/18 History Ciprofloxacin HCl [Cipro] 500 mg PO Q12HR 10/10/18 10/10/18 History Clindamycin HCl 300 mg PO TID 10/10/18 10/10/18 History Allergies Allergy/AdvReac Type Severity Reaction Status Date / Time Penicillins Allergy Anaphylaxis Verified 10/10/18 17:29 Physical Exam Vitals: Vital Signs Temp Pulse Pulse Resp BP Pulse Ox 10/11/18 19:40 98.1 F 74 16 143/79 96 10/11/18 16:00 16 10/11/18 14:32 97.9 F 89 16 149/81 97 10/11/18 08:00 89 16 10/11/18 07:00 98.1 F 89 16 148/82 98 10/11/18 01:10 98.1 F 82 16 110/67 97 Intake and Output 10/11/18 10/11/18 10/12/18 14:59 22:59 06:59 Intake Total 630 Balance 630 Intake: Oral 630 Other: Voiding Method Toilet Toilet # Voids 2 Weight 106.594 kg 53-year-old male with obesity, seems comfortable HEENT: Anicteric conjunctiva are pink and moist nasal mucosa grossly intact without significant lesions, there is no thrush. Dentition somewhat poor for age Neck: The neck is supple without significant lymphadenopathy or thyromegaly. Lungs: Good bilateral air entry without significant crackles or wheezing. There is no significant bronchial sounds. There is no egophony or dullness. Heart: Regular rate and rhythm with an audible S1-S2, no S3 soft S4 There is no significant murmur click or rub, PMI was nondisplaced. Abdomen: Obese, Positive bowel sounds soft and nontender without palpable masses or organomegaly. There was no guarding or rebound. Extremities: The upper extremities have excellent pulses they are symmetric, no significant petechiae or telangiectasia. No splinter hemorrhages were noted. The right lower extremities without acute abnormalities. The left foot shows evidence of the healed diabetic ulceration that was at the base of the fourth and fifth toes. However now the surgical site is on the dorsum of the fourth and fifth toes has evidence of significant erythema and some drainage swelling and discomfort.. There is some swelling to the foot. Some mild erythema to the left lower extremity to just above the ankle. There is minimal tenderness in the left groin with minimal lymphadenopathy but no other palpable lymph nodes are noted the rest of the skin is without rash or breakdown Neuro: Awake alert oriented to person place and time. There are no acute new gross focal sensory motor deficits. But does have the difficulty with the neuropathy to the bilateral feet. Results CBC & Chem 7: 10/11/18 07:13 10/11/18 07:13 Labs: Abnormal Lab Results - Last 24 Hours (Table) 10/11/18 10/11/18 Range/Units 06:58 07:13 Glucose 114 H (74-99) mg/dL POC Glucose (mg/dL) 102 H (75-99) mg/dL Microbiology - Last 24 Hours (Table) 10/10/18 16:04 Gram Stain - Preliminary Foot - Left Wound Culture - Preliminary 10/10/18 15:30 Blood Culture - Preliminary Blood No Growth after 24 hours Laboratory Results WBC 5.5 k/uL (3.8-10.6) 10/11/18 07:13 RBC 5.24 m/uL (4.30-5.90) 10/11/18 07:13 Hgb 14.9 gm/dL (13.0-17.5) 10/11/18 07:13 Hct 43.7 % (39.0-53.0) 10/11/18 07:13 MCV 83.5 fL (80.0-100.0) 10/11/18 07:13 MCH 28.4 pg (25.0-35.0) 10/11/18 07:13 MCHC 34.0 g/dL (31.0-37.0) 10/11/18 07:13 RDW 13.8 % (11.5-15.5) 10/11/18 07:13 Plt Count 307 k/uL (150-450) 10/11/18 07:13 Neutrophils % 60 % 10/11/18 07:13 Lymphocytes % 21 % 10/11/18 07:13 Monocytes % 7 % 10/11/18 07:13 Eosinophils % 9 % 10/11/18 07:13 Basophils % 1 % 10/11/18 07:13 Neutrophils # 3.3 k/uL (1.3-7.7) 10/11/18 07:13 Lymphocytes # 1.2 k/uL (1.0-4.8) 10/11/18 07:13 Monocytes # 0.4 k/uL (0-1.0) 10/11/18 07:13 Eosinophils # 0.5 k/uL (0-0.7) 10/11/18 07:13 Basophils # 0.1 k/uL (0-0.2) 10/11/18 07:13 Sodium 141 mmol/L (137-145) 10/11/18 07:13 Potassium 4.4 mmol/L (3.5-5.1) 10/11/18 07:13 Chloride 106 mmol/L (98-107) 10/11/18 07:13 Carbon Dioxide 25 mmol/L (22-30) 10/11/18 07:13 Anion Gap 10 mmol/L 10/11/18 07:13 BUN 16 mg/dL (9-20) 10/11/18 07:13 Creatinine 0.88 mg/dL (0.66-1.25) 10/11/18 07:13 Est GFR (CKD-EPI)AfAm >90 (>60 ml/min/1.73 sqM) 10/11/18 07:13 Est GFR (CKD-EPI)NonAf >90 (>60 ml/min/1.73 sqM) 10/11/18 07:13 Glucose 114 mg/dL (74-99) H 10/11/18 07:13 POC Glucose (mg/dL) 93 mg/dL (75-99) 10/11/18 16:48 POC Glu Barrel Cooper Melissa Tamayo 10/11/18 16:48 Calcium 8.8 mg/dL (8.4-10.2) 10/11/18 07:13 Total Bilirubin 0.5 mg/dL (0.2-1.3) 10/10/18 15:30 AST 34 U/L (17-59) 10/10/18 15:30 ALT 38 U/L (21-72) 10/10/18 15:30 Alkaline Phosphatase 89 U/L (38-126) 10/10/18 15:30 Total Protein 7.6 g/dL (6.3-8.2) 10/10/18 15:30 Albumin 4.5 g/dL (3.5-5.0) 10/10/18 15:30 Microbiology 10/10/18 16:04 Foot - Left Gram Stain - Preliminary 10/10/18 16:04 Foot - Left Wound Culture - Preliminary 10/10/18 15:30 Blood Blood Culture - Preliminary No Growth after 24 hours Comments: X-ray of the foot showed a surgical change without evidence of air within the tissue Assessment and Plan (1) Diabetic neuropathy Current Visit: Yes Status: Acute Code(s): E11.40 - TYPE 2 DIABETES MELLITUS WITH DIABETIC NEUROPATHY, UNSP SNOMED Code(s): 464949678 (2) Surgical site infection Narrative/Plan: 53-year-old male known to the infectious disease service from his prior left diabetic foot ulceration treated earlier this year, that time there was underlying osteomyelitis and he was treated with a course of antibiotic therapy that allowed significant improvement of the ulceration. He is a ulceration healed he was taken back to the operating room for the correction of the deformity to the fourth and fifth toes to prevent further ulcerations. He overs now developed evidence the significant cellulitis of the fourth and fifth toes there is some scant drainage but it is not severe. He has neuropathy and is very painful at times. At this time offloading the foot is of significant importance and we've asked for a commode chair severely limits his time up and around on the foot Silvadene dressing has been requested to redness of the foot. Antibiotic therapy is with vancomycin and cefepime to cover for staph and strep and gram-negative organisms related to the recent surgery Cultures are process and hopefully course of oral antibiotic therapy will be utilized the time of his discharge for the cellulitis at the surgical site. At this time does not appear to be deep infection. Current Visit: Yes Status: Acute Code(s): T81.49XA - INFECTION FOLLOWING A PROCEDURE, OTHER SURGICAL SITE, INIT SNOMED Code(s): 45717319 (3) Leukocytosis Current Visit: Yes Status: Acute Code(s): D72.829 - ELEVATED WHITE BLOOD CELL COUNT, UNSPECIFIED SNOMED Code(s): 026366216
[2018-10-12] MEDS: VANCOMYCIN 1,750 MG in SODIUM CHLORIDE 0.9% 500 ML 500 ML IVPB SCH ×2 (05:27→18:10)
[2018-10-12 07:21] LABS: Glucose,Whole Blood 100 mg/dL (75-99)
[2018-10-12] MEDS: MULTIVITAMINS, THERA 1 EACH TAB PO SCH (08:20)
[2018-10-12] MEDS: LINAGLIPTIN 5 MG TABLET PO SCH (08:20)
[2018-10-12] MEDS: metFORMIN 500 MG TAB PO SCH ×2 (08:20→20:39)
[2018-10-12] MEDS: PANTOPRAZOLE 40 MG TABLET PO SCH (08:20)
[2018-10-12] MEDS: HEPARIN SODIUM,PORCINE 5,000 UNIT/ML 1 ML VIAL SQ SCH ×2 (08:21→20:39)
[2018-10-12] MEDS: ACETAMINOPHEN TAB 325 MG TAB PO PRN (08:21)
[2018-10-12] MEDS: STEGLATRO 15 MG PO SCH (08:22)
[2018-10-12] MEDS: TICAGRELOR 90 MG TAB PO SCH ×2 (08:23→20:39)
[2018-10-12 08:32] LABS: Basophils % (A) 1 %; Eosinophils # (A) 0.4 k/uL (0-0.7); Eosinophils % (A) 9 %; HCT 44.3 % (39.0-53.0); HGB 14.7 gm/dL (13.0-17.5); Lymphocytes % (A) 21 %; MCH 27.8 pg (25.0-35.0); MCHC 33.2 g/dL (31.0-37.0); MCV 83.7 fL (80.0-100.0); Mean Platelet Volume 6.6; Monocytes # (A) 0.4 k/uL (0-1.0); Monocytes % (A) 8 %; Neutrophils # (A) 2.9 k/uL (1.3-7.7); Neutrophils % (A) 60 %; Platelet Count 281 k/uL (150-450); RBC 5.29 m/uL (4.30-5.90); WBC 4.9 k/uL (3.8-10.6)
[2018-10-12 09:17] LABS: African American GFR (CKD) >90 (>60 ml/min/1.73 sqM); Anion Gap 10 mmol/L; Blood Urea Nitrogen 9 mg/dL (9-20); Calcium 8.8 mg/dL (8.4-10.2); Carbon Dioxide 24 mmol/L (22-30); Chloride 109 mmol/L (98-107); Glucose 96 mg/dL (74-99); Potassium 4.1 mmol/L (3.5-5.1); Sodium 143 mmol/L (137-145)
[2018-10-12] MEDS: SODIUM CHLORIDE 0.9% 1,000 ML IV SCH ×2 (09:41→18:10)
[2018-10-12 12:01] LABS: Glucose,Whole Blood 100 mg/dL (75-99)
[2018-10-12 16:54] LABS: Glucose,Whole Blood 97 mg/dL (75-99)
[2018-10-12] MEDS ORDERED: VANCOMYCIN TROUGH DUE 1 EACH MISC MISCELLANE ONE (17:00)
--- NOTE | 2018-10-12 17:01 | PN ---
PROGRESS NOTE DATE OF SERVICE: 10/12/2018 This 53-year-old gentleman who was admitted with significant foot infection, cellulitis, had recent surgery. The patient is being closely monitored at this time. Patient is on broad-spectrum IV antibiotics. Dr. Morales has seen the patient. Currently the patient is on IV ceftazidime as well as vancomycin. No chest pain. No palpitations. No fever. On exam, alert and oriented x3. Pulse 69, blood pressure 135/81, respirations 16, temperature 97.6, pulse ox 97% on room air. HEENT: Conjunctivae normal. NECK: No jugular venous distention. CARDIOVASCULAR SYSTEM: S1, S2 muffled. RESPIRATORY SYSTEM: Breath sounds diminished at the bases. No rhonchi. No crackles. ABDOMEN: Soft, non-tender. LEGS: Left foot infection and cellulitis present. NERVOUS SYSTEM: No focal deficit. LABS: CBC and BMP noted. Accu-Cheks noted. ASSESSMENT: 1. Cellulitis of the left foot with failure of outpatient treatment. 2. Status post recent surgery on the left foot by instrumentation technologist. 3. History of fourth metatarsal osteomyelitis; was on IV antibiotic recently. 4. History of coronary artery disease. 5. Diabetes mellitus, type 2. 6. Hyperlipidemia. 7. History of pneumonia. 8. History of peripheral neuropathy. 9. History of bilateral retinopathy secondary to diabetes mellitus, type 2. 10.Right eye glaucoma. 11.History of coronary artery disease, stent. 12.History of degenerative joint disease. 13.Obesity with body mass index of 36.8. 14.FULL CODE. RECOMMENDATIONS AND DISCUSSION: I recommend to continue current medications, continue with the monitoring, symptomatic treatment. Continue with the broad-spectrum IV antibiotics. Monitor blood sugars closely. They are fairly well controlled. Closely follow with Infectious Disease. Also recommend that the staff contact the instrumentation technologist sutures as well. Further recommendations to follow. MMODL / IJN: [id number] / MTDD
[2018-10-12] MEDS: ASPIRIN 81 MG PO SCH (20:39)
[2018-10-12] MEDS: ATORVASTATIN 40 MG TAB PO SCH (20:39)
--- NOTE | 2018-10-12 23:28 | P.PN ---
Subjective Progress Note Date: 10/12/18 53-year-old male that has a long-standing history of medical illnesses includes diabetes mellitus type 2 poorly controlled with hemoglobin A1c last December of greater than 11 and last check was about 7.4. The patient has significant underlying hypertension, cardiovascular disease and had obstructive lesions which required cardiac catheterization and stents. He remains on Effient after his procedures. The patient has had approximately a 40 pound weight loss over the last 5-6 months and over the last year or so approximately 100 pound weight loss. 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 He developed significant diabetic foot infection and required surgical debridement from his ground hand and had an 8 week course of intravenous antibiotic therapy for underlying osteomyelitis. As he recovered from the significant infection he was seen by his ground hand and was taken to the operating room for revision of his left foot. With goal to realign the foot to take pressure off sites of ulceration. Postoperatively he did well but now presents with fever, chills, malaise and evidence of the significant worsening of the left foot. He developed significant erythema and some drainage tenderness and swelling. With this the consult was requested. He relates that he's been offloading the foot at home by walking on the heel and limiting his ambulation. He did not know exactly when he will be released to go back to work. 10/12/2018 the patient is doing considerably better. Pain and swelling and bri thema have all improved. He has been quite compliant with elevating the foot. Objective - Vital Signs Vital signs: Vital Signs Temp 98.0 F 10/12/18 20:33 Pulse 71 10/12/18 20:33 Resp 18 10/12/18 20:33 BP 133/77 10/12/18 20:33 Pulse Ox 95 10/12/18 20:33 Intake & Output 10/12/18 10/12/18 10/13/18 06:59 18:59 06:59 Intake Total 960 480 Balance 960 480 Intake: Oral 960 480 Other: Voiding Method Bedside Commode Bedside Commode # Voids 1 - Exam 53-year-old male with obesity, seems comfortable HEENT: Anicteric conjunctiva are pink and moist nasal mucosa grossly intact without significant lesions, there is no thrush. Dentition somewhat poor for age Neck: The neck is supple without significant lymphadenopathy or thyromegaly. Lungs: Good bilateral air entry without significant crackles or wheezing. There is no significant bronchial sounds. There is no egophony or dullness. Heart: Regular rate and rhythm with an audible S1-S2, no S3 soft S4 There is no significant murmur click or rub, PMI was nondisplaced. Abdomen: Obese, Positive bowel sounds soft and nontender without palpable masses or organomegaly. There was no guarding or rebound. Extremities: The upper extremities have excellent pulses they are symmetric, no significant petechiae or telangiectasia. No splinter hemorrhages were noted. The right lower extremities without acute abnormalities. The left foot shows evidence of the healed diabetic ulceration that was at the base of the fourth and fifth toes. However now the surgical site is on the dorsum of the fourth and fifth toes has evidence of marked improvement of the erythema and drainage decreased swelling and discomfort.. Some mild erythema to the left lower extremity to just above the ankle. The minimal tenderness in the left groin is generally resolved the rest of the skin is without rash or breakdown Neuro: Awake alert oriented to person place and time. There are no acute new gross focal sensory motor deficits. But does have the difficulty with the neuropathy to the bilateral feet. - Labs CBC & Chem 7: 10/12/18 07:25 10/12/18 07:25 Labs: Abnormal Lab Results - Last 24 Hours (Table) 10/12/18 10/12/18 10/12/18 Range/Units 07:10 07:25 11:48 Chloride 109 H (98-107) mmol/L POC Glucose (mg/dL) 100 H 100 H (75-99) mg/dL Microbiology - Last 24 Hours (Table) 10/10/18 16:04 Gram Stain - Final Foot - Left Wound Culture - Final 10/10/18 15:30 Blood Culture - Preliminary Blood No Growth after 48 hours Laboratory Results WBC 4.9 k/uL (3.8-10.6) 10/12/18 07:25 RBC 5.29 m/uL (4.30-5.90) 10/12/18 07:25 Hgb 14.7 gm/dL (13.0-17.5) 10/12/18 07:25 Hct 44.3 % (39.0-53.0) 10/12/18 07:25 MCV 83.7 fL (80.0-100.0) 10/12/18 07:25 MCH 27.8 pg (25.0-35.0) 10/12/18 07:25 MCHC 33.2 g/dL (31.0-37.0) 10/12/18 07:25 RDW 14.0 % (11.5-15.5) 10/12/18 07:25 Plt Count 281 k/uL (150-450) 10/12/18 07:25 Neutrophils % 60 % 10/12/18 07:25 Lymphocytes % 21 % 10/12/18 07:25 Monocytes % 8 % 10/12/18 07:25 Eosinophils % 9 % 10/12/18 07:25 Basophils % 1 % 10/12/18 07:25 Neutrophils # 2.9 k/uL (1.3-7.7) 10/12/18 07:25 Lymphocytes # 1.0 k/uL (1.0-4.8) 10/12/18 07:25 Monocytes # 0.4 k/uL (0-1.0) 10/12/18 07:25 Eosinophils # 0.4 k/uL (0-0.7) 10/12/18 07:25 Basophils # 0.0 k/uL (0-0.2) 10/12/18 07:25 Sodium 143 mmol/L (137-145) 10/12/18 07:25 Potassium 4.1 mmol/L (3.5-5.1) 10/12/18 07:25 Chloride 109 mmol/L (98-107) H 10/12/18 07:25 Carbon Dioxide 24 mmol/L (22-30) 10/12/18 07:25 Anion Gap 10 mmol/L 10/12/18 07:25 BUN 9 mg/dL (9-20) 10/12/18 07:25 Creatinine 0.77 mg/dL (0.66-1.25) 10/12/18 07:25 Est GFR (CKD-EPI)AfAm >90 (>60 ml/min/1.73 sqM) 10/12/18 07:25 Est GFR (CKD-EPI)NonAf >90 (>60 ml/min/1.73 sqM) 10/12/18 07:25 Glucose 96 mg/dL (74-99) 10/12/18 07:25 POC Glucose (mg/dL) 97 mg/dL (75-99) 10/12/18 16:53 POC Glu Clamp Remover ID Gracia Rob 10/12/18 16:53 Calcium 8.8 mg/dL (8.4-10.2) 10/12/18 07:25 Total Bilirubin 0.5 mg/dL (0.2-1.3) 10/10/18 15:30 AST 34 U/L (17-59) 10/10/18 15:30 ALT 38 U/L (21-72) 10/10/18 15:30 Alkaline Phosphatase 89 U/L (38-126) 10/10/18 15:30 Total Protein 7.6 g/dL (6.3-8.2) 10/10/18 15:30 Albumin 4.5 g/dL (3.5-5.0) 10/10/18 15:30 Vancomycin Trough 12.5 ug/mL 10/12/18 17:22 Microbiology 10/10/18 16:04 Foot - Left Gram Stain - Final 10/10/18 16:04 Foot - Left Wound Culture - Final 10/10/18 15:30 Blood Blood Culture - Preliminary No Growth after 48 hours Assessment and Plan (1) Diabetic neuropathy Current Visit: Yes Status: Acute Code(s): E11.40 - TYPE 2 DIABETES MELLITUS WITH DIABETIC NEUROPATHY, UNSP SNOMED Code(s): 731087122 (2) Surgical site infection Narrative/Plan: 53-year-old male known to the infectious disease service from his prior left diabetic foot ulceration treated earlier this year, that time there was underlying osteomyelitis and he was treated with a course of antibiotic therapy that allowed significant improvement of the ulceration. He is a ul ceration healed he was taken back to the operating room for the correction of the deformity to the fourth and fifth toes to prevent further ulcerations. He overs now developed evidence the significant cellulitis of the fourth and fifth toes there is some scant drainage but it is not severe. He has neuropathy and is very painful at times. At this time offloading the foot is of significant importance and we've asked for a commode chair severely limits his time up and around on the foot Silvadene dressing has been requested to redness of the foot. Antibiotic therapy is with vancomycin and cefepime to cover for staph and strep and gram-negative organisms related to the recent surgery Cultures are process and hopefully course of oral antibiotic therapy will be utilized the time of his discharge for the cellulitis at the surgical site. At this time does not appear to be deep infection. 10/12/2018 the patient is now interested improvement of the status since coming to Hospital elevate the limb and having antibiotic therapy. Cultures are processing will continue current antibiotic therapy with vancomycin and cefepime for now. Cultures may further help direct therapy. Fortunately there is been the excellent response to treatment up to this point in time. Current Visit: Yes Status: Acute Code(s): T81.49XA - INFECTION FOLLOWING A PROCEDURE, OTHER SURGICAL SITE, INIT SNOMED Code(s): 69345035 (3) Leukocytosis Current Visit: Yes Status: Acute Code(s): D72.829 - ELEVATED WHITE BLOOD CELL COUNT, UNSPECIFIED SNOMED Code(s): 586023342
[2018-10-13] MEDS: VANCOMYCIN 1,750 MG in SODIUM CHLORIDE 0.9% 500 ML 500 ML IVPB SCH ×2 (04:55→17:43)
[2018-10-13] MEDS: ACETAMINOPHEN TAB 325 MG TAB PO PRN (05:37)
[2018-10-13 06:58] LABS: Glucose,Whole Blood 145 mg/dL (75-99)
[2018-10-13 08:14] LABS: Basophils % (A) 1 %; Eosinophils # (A) 0.4 k/uL (0-0.7); Eosinophils % (A) 7 %; HGB 14.9 gm/dL (13.0-17.5); Lymphocytes # (A) 0.9 k/uL (1.0-4.8); Lymphocytes % (A) 14 %; MCH 28.3 pg (25.0-35.0); MCV 83.4 fL (80.0-100.0); Mean Platelet Volume 6.4; Monocytes # (A) 0.4 k/uL (0-1.0); Monocytes % (A) 6 %; Neutrophils # (A) 4.5 k/uL (1.3-7.7); Neutrophils % (A) 71 %; Platelet Count 306 k/uL (150-450); RBC 5.27 m/uL (4.30-5.90); RDW 13.9 % (11.5-15.5); WBC 6.2 k/uL (3.8-10.6)
[2018-10-13] MEDS: STEGLATRO 15 MG PO SCH (08:21)
[2018-10-13] MEDS: metFORMIN 500 MG TAB PO SCH ×2 (08:21→20:31)
[2018-10-13] MEDS: PANTOPRAZOLE 40 MG TABLET PO SCH (08:21)
[2018-10-13] MEDS: LINAGLIPTIN 5 MG TABLET PO SCH (08:21)
[2018-10-13] MEDS: MULTIVITAMINS, THERA 1 EACH TAB PO SCH (08:21)
[2018-10-13] MEDS: HEPARIN SODIUM,PORCINE 5,000 UNIT/ML 1 ML VIAL SQ SCH ×2 (08:23→20:31)
[2018-10-13] MEDS: TICAGRELOR 90 MG TAB PO SCH ×2 (08:23→20:31)
[2018-10-13] MEDS: SODIUM CHLORIDE 0.9% 1,000 ML IV SCH (08:27)
[2018-10-13 08:49] LABS: African American GFR (CKD) >90 (>60 ml/min/1.73 sqM); Anion Gap 11 mmol/L; Blood Urea Nitrogen 10 mg/dL (9-20); Carbon Dioxide 25 mmol/L (22-30); Chloride 107 mmol/L (98-107); Glucose 139 mg/dL (74-99); Potassium 3.9 mmol/L (3.5-5.1); Sodium 143 mmol/L (137-145)
[2018-10-13 11:49] LABS: Glucose,Whole Blood 103 mg/dL (75-99)
[2018-10-13 17:09] LABS: Glucose,Whole Blood 95 mg/dL (75-99)
--- NOTE | 2018-10-13 17:15 | PN ---
PROGRESS NOTE DATE OF SERVICE: 10/13/2018 This 53-year-old gentleman who was admitted with cellulitis of the left foot and failure of outpatient treatment is improving significantly. No chest pain. No palpitations. No fever. EXAM: Alert and oriented x2. Pulse 79, blood pressure 133/76, respiration 16, temperature 98.2, pulse ox 97% on room air. HEENT: Conjunctivae normal. NECK: No jugular venous distention. CARDIOVASCULAR: S1, S2. RESPIRATION: Breath sounds diminished in the bases. No rhonchi. No crackles. ABDOMEN is soft, nontender. LEGS: Left leg cellulitis present. NERVOUS SYSTEM: No focal deficits. LABS: CBC within normal limits. Sodium 143, potassium 3.8, glucose 139. ASSESSMENT: 1. Cellulitis of the left foot with failure of outpatient treatment. 2. Status post recent surgery on the left foot by head bookkeeper. 3. History of 4th metatarsal osteomyelitis was on IV antibiotic treatment. 4. History of coronary artery disease. 5. Diabetes type 2. 6. Hyperlipidemia. 7. History of pneumonia. 8. History of peripheral neuropathy. 9. History of bilateral retinopathy secondary to diabetes type 2. 10.Right eye glaucoma. 11.History of coronary artery disease/ stent. 12.History of degenerative joint disease. 13.Obesity with body mass index of 36.8. 14.FULL CODE. RECOMMENDATIONS AND DISCUSSION: Recommend to continue current medications, monitoring, management and symptomatic treatment. Continue with IV antibiotics. Closely follow with Infectious Disease. Continue the rest of medications. Further recommendations to follow. MMODL / IJN: [id number] /
[2018-10-13 18:19] LABS: Hemoglobin A1C 6.3 % (4.0-6.0)
[2018-10-13] MEDS: ASPIRIN 81 MG PO SCH (20:31)
[2018-10-13] MEDS: ATORVASTATIN 40 MG TAB PO SCH (20:31)
--- NOTE | 2018-10-14 00:22 | P.PN ---
Subjective Progress Note Date: 10/13/18 53-year-old male that has a long-standing history of medical illnesses includes diabetes mellitus type 2 poorly controlled with hemoglobin A1c last December of greater than 11 and last check was about 7.4. The patient has significant underlying hypertension, cardiovascular disease and had obstructive lesions which required cardiac catheterization and stents. He remains on Effient after his procedures. The patient has had approximately a 40 pound weight loss over the last 5-6 months and over the last year or so approximately 100 pound weight loss. 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 He developed significant diabetic foot infection and required surgical debridement from his associate sales manager and had an 8 week course of intravenous antibiotic therapy for underlying osteomyelitis. As he recovered from the significant infection he was seen by his associate sales manager and was taken to the operating room for revision of his left foot. With goal to realign the foot to take pressure off sites of ulceration. Postoperatively he did well but now presents with fever, chills, malaise and evidence of the significant worsening of the left foot. He developed significant erythema and some drainage tenderness and swelling. With this the consult was requested. He relates that he's been offloading the foot at home by walking on the heel and limiting his ambulation. He did not know exactly when he will be released to go back to work. 10/12/2018 the patient is doing considerably better. Pain and swelling and bri thema have all improved. He has been quite compliant with elevating the foot. 10/13/2018 reveals the patient to have further improvement of his status. He did have 1 suture that pull-through and some bleeding but the overall swelling and redness seemed to be improved as has the pain. Objective - Vital Signs Vital signs: Vital Signs Temp 98.2 F 10/13/18 20:39 Pulse 85 10/13/18 20:39 Resp 17 10/13/18 20:39 BP 157/79 10/13/18 20:39 Pulse Ox 97 10/13/18 20:39 Intake & Output 10/13/18 10/13/18 10/14/18 06:59 18:59 06:59 Intake Total 480 Balance 480 Intake: Oral 480 Other: Voiding Method Bedside Commode # Voids 1 3 2 - Exam 53-year-old male with obesity, seems comfortable HEENT: Anicteric conjunctiva are pink and moist nasal mucosa grossly intact without significant lesions, there is no thrush. Dentition somewhat poor for age Neck: The neck is supple without significant lymphadenopathy or thyromegaly. Lungs: Good bilateral air entry without significant crackles or wheezing. There is no significant bronchial sounds. There is no egophony or dullness. Heart: Regular rate and rhythm with an audible S1-S2, no S3 soft S4 There is no significant murmur click or rub, PMI was nondisplaced. Abdomen: Obese, Positive bowel sounds soft and nontender without palpable masses or organomegaly. There was no guarding or rebound. Extremities: The upper extremities have excellent pulses they are symmetric, no significant petechiae or telangiectasia. No splinter hemorrhages were noted. The right lower extremities without acute abnormalities. The left foot shows evidence of the healed diabetic ulceration that was at the base of the fourth and fifth toes. However now the surgical site is on the dorsum of the fourth and fifth toes has evidence of marked improvement of the erythema and drainage decreased swelling and discomfort.. Some mild erythema to the left lower extremity to just above the ankle. The minimal tenderness in the left groin is generally resolved the rest of the skin is without rash or breakdown Neuro: Awake alert oriented to person place and time. There are no acute new gross focal sensory motor deficits. But does have the difficulty with the neuropathy to the bilateral feet. - Labs CBC & Chem 7: 10/13/18 07:11 10/13/18 07:11 Labs: Abnormal Lab Results - Last 24 Hours (Table) 10/13/18 10/13/18 10/13/18 Range/Units 06:57 07:11 07:11 Lymphocytes # 0.9 L (1.0-4.8) k/uL Glucose 139 H (74-99) mg/dL POC Glucose (mg/dL) 145 H (75-99) mg/dL Hemoglobin A1c (4.0-6.0) % 10/13/18 10/13/18 Range/Units 08:46 11:37 Lymphocytes # (1.0-4.8) k/uL Glucose (74-99) mg/dL POC Glucose (mg/dL) 103 H (75-99) mg/dL Hemoglobin A1c 6.3 H (4.0-6.0) % Microbiology - Last 24 Hours (Table) 10/10/18 15:30 Blood Culture - Preliminary Blood No Growth after 72 hours Laboratory Results WBC 6.2 k/uL (3.8-10.6) 10/13/18 07:11 RBC 5.27 m/uL (4.30-5.90) 10/13/18 07:11 Hgb 14.9 gm/dL (13.0-17.5) 10/13/18 07:11 Hct 44.0 % (39.0-53.0) 10/13/18 07:11 MCV 83.4 fL (80.0-100.0) 10/13/18 07:11 MCH 28.3 pg (25.0-35.0) 10/13/18 07:11 MCHC 34.0 g/dL (31.0-37.0) 10/13/18 07:11 RDW 13.9 % (11.5-15.5) 10/13/18 07:11 Plt Count 306 k/uL (150-450) 10/13/18 07:11 Neutrophils % 71 % 10/13/18 07:11 Lymphocytes % 14 % 10/13/18 07:11 Monocytes % 6 % 10/13/18 07:11 Eosinophils % 7 % 10/13/18 07:11 Basophils % 1 % 10/13/18 07:11 Neutrophils # 4.5 k/uL (1.3-7.7) 10/13/18 07:11 Lymphocytes # 0.9 k/uL (1.0-4.8) L 10/13/18 07:11 Monocytes # 0.4 k/uL (0-1.0) 10/13/18 07:11 Eosinophils # 0.4 k/uL (0-0.7) 10/13/18 07:11 Basophils # 0.0 k/uL (0-0.2) 10/13/18 07:11 Sodium 143 mmol/L (137-145) 10/13/18 07:11 Potassium 3.9 mmol/L (3.5-5.1) 10/13/18 07:11 Chloride 107 mmol/L (98-107) 10/13/18 07:11 Carbon Dioxide 25 mmol/L (22-30) 10/13/18 07:11 Anion Gap 11 mmol/L 10/13/18 07:11 BUN 10 mg/dL (9-20) 10/13/18 07:11 Creatinine 0.85 mg/dL (0.66-1.25) 10/13/18 07:11 Est GFR (CKD-EPI)AfAm >90 (>60 ml/min/1.73 sqM) 10/13/18 07:11 Est GFR (CKD-EPI)NonAf >90 (>60 ml/min/1.73 sqM) 10/13/18 07:11 Glucose 139 mg/dL (74-99) H 10/13/18 07:11 POC Glucose (mg/dL) 95 mg/dL (75-99) 10/13/18 16:58 POC Glu Apprentice Jockey ID Gracia Rob 10/13/18 16:[address] Glu mg/dL 134 10/13/18 08:46 Hemoglobin A1c 6.3 % (4.0-6.0) H 10/13/18 08:46 Calcium 9.0 mg/dL (8.4-10.2) 10/13/18 07:11 Total Bilirubin 0.5 mg/dL (0.2-1.3) 10/10/18 15:30 AST 34 U/L (17-59) 10/10/18 15:30 ALT 38 U/L (21-72) 10/10/18 15:30 Alkaline Phosphatase 89 U/L (38-126) 10/10/18 15:30 Total Protein 7.6 g/dL (6.3-8.2) 10/10/18 15:30 Albumin 4.5 g/dL (3.5-5.0) 10/10/18 15:30 Vancomycin Trough 12.5 ug/mL 10/12/18 17:22 Microbiology 10/10/18 15:30 Blood Blood Culture - Preliminary No Growth after 72 hours 10/10/18 16:04 Foot - Left Gram Stain - Final 10/10/18 16:04 Foot - Left Wound Culture - Final Assessment and Plan (1) Diabetic neuropathy Current Visit: Yes Status: Acute Code(s): E11.40 - TYPE 2 DIABETES MELLITUS WITH DIABETIC NEUROPATHY, UNSP SNOMED Code(s): 185079830 (2) Surgical site infection Narrative/Plan: 53-year-old male known to the infectious disease service from his prior left diabetic foot ulceration treated earlier this year, that time there was underlying osteomyelitis and he was treated with a course of antibiotic therapy that allowed significant improvement of the ulceration. He is a ulceration healed he was taken back to the operating room for the correction of the deformity to the fourth and fifth toes to prevent further ulcerations. He overs now developed evidence the significant cellulitis of the fourth and fifth toes there is some scant drainage but it is not severe. He has neuropathy and is very painful at times. At this time offloading the foot is of significant importance and we've asked for a commode chair severely limits his time up and around on the foot Silvadene dressing has been requested to redness of the foot. Antibiotic therapy is with vancomycin and cefepime to cover for staph and strep and gram-negative organisms related to the recent surgery Cultures are process and hopefully course of oral antibiotic therapy will be utilized the time of his discharge for the cellulitis at the surgical site. At this time does not appear to be deep infection. 10/12/2018 the patient is now interested improvement of the status since coming to Hospital elevate the limb and having antibiotic therapy. Cultures are processing will continue current antibiotic therapy with vancomycin and cefepime for now. Cultures may further help direct therapy. Fortunately there is been the excellent response to treatment up to this point in time. 10/13/2018 the patient is having further improvement but not complete resolution. He seems to be doing well with the vancomycin and cefepime. He will have further evaluations if there is further improvement transitioning to oral antibiotic therapy will likely occur with local wound care and offloading. Current Visit: Yes Status: Acute Code(s): T81.49XA - INFECTION FOLLOWING A PROCEDURE, OTHER SURGICAL SITE, INIT SNOMED Code(s): 50790939 (3) Leukocytosis Current Visit: Yes Status: Acute Code(s): D72.829 - ELEVATED WHITE BLOOD CELL COUNT, UNSPECIFIED SNOMED Code(s): 215589995
[2018-10-14] MEDS: VANCOMYCIN 1,750 MG in SODIUM CHLORIDE 0.9% 500 ML 500 ML IVPB SCH (05:42)
[2018-10-14 06:58] LABS: Glucose,Whole Blood 109 mg/dL (75-99)
[2018-10-14] MEDS: metFORMIN 500 MG TAB PO SCH (09:20)
[2018-10-14] MEDS: MULTIVITAMINS, THERA 1 EACH TAB PO SCH (09:20)
[2018-10-14] MEDS: PANTOPRAZOLE 40 MG TABLET PO SCH (09:21)
[2018-10-14] MEDS: LINAGLIPTIN 5 MG TABLET PO SCH (09:21)
[2018-10-14] MEDS: HEPARIN SODIUM,PORCINE 5,000 UNIT/ML 1 ML VIAL SQ SCH (09:21)
[2018-10-14] MEDS: TICAGRELOR 90 MG TAB PO SCH (09:21)
[2018-10-14] MEDS: STEGLATRO 15 MG PO SCH (09:22)
[2018-10-14 11:37] LABS: Glucose,Whole Blood 118 mg/dL (75-99)
[2018-10-14 11:46] VITALS: BP 127/84; PULSE 85; RESP 16; TEMP 98.1
[2018-10-14] MEDS: SODIUM CHLORIDE 0.9% 1,000 ML IV SCH (11:53)
--- NOTE | 2018-10-14 13:22 | P.DS ---
Providers Date of admission: 10/11/18 13:44 Attending physician: Twyla Moon Consults: 10/10/18 17:14 Consult Physician Stat Consulting Provider: Magan Morales Consult Reason/Comments: Left foot cellulitis, Hx osteo, failure outpatient Do you want consulting provider notified?: Yes Primary care physician: Kwabena Bettencourt MD Hospital Course: 53-year-old pleasant gentleman came in for infection of the surgical site area. Patient is being discharged on cefuroxime time as per infectious disease. Wound cultures are so far negative. Patient had history of prostatitis after completion of antibiotic therapy patient underwent the revision of his left foot which was later infected for which patient was admitted here. This is clinically doing well there are improvement in his infection and cellulitis patient is cleared for discharge from infectious disease perspective and patient will follow-up with infectious disease as an outpatient. has diabetic peripheral neuropathy PHYSICAL EXAMINATION: GENERAL: The patient is alert and oriented x3, not in any acute distress. Well developed, well nourished. HEENT: Pupils are round and equally reacting to light. EOMI. No scleral icterus. No conjunctival pallor. Normocephalic, atraumatic. No pharyngeal erythema. No thyromegaly. CARDIOVASCULAR: S1 and S2 present. No murmurs, rubs, or gallops. PULMONARY: Chest is clear to auscultation, no wheezing or crackles. ABDOMEN: Soft, nontender, nondistended, normoactive bowel sounds. No palpable organomegaly. MUSCULOSKELETAL: No joint swelling or deformity. EXTREMITIES: No cyanosis, clubbing, or pedal edema. Left foot to is covered with gauze NEUROLOGICAL: Gross neurological examination did not reveal any focal deficits. SKIN: No rashes. Please refer to dictation from Dr. Moon for further details of hospital admission course and other medical problems Patient Condition at Discharge: Stable Plan - Discharge Summary Discharge Rx Participant: No New Discharge Prescriptions: New Cefuroxime Axetil [Cefuroxime] 500 mg PO BID #20 tab Continue sitaGLIPtin [Januvia] 100 mg PO DAILY Atorvastatin [Lipitor] 40 mg PO HS metFORMIN HCL [Glucophage] 1,000 mg PO BID Ertugliflozin Pidolate [Steglatro] 15 mg PO DAILY Aspirin [Adult Low Dose Aspirin EC] 81 mg PO HS Ticagrelor [Brilinta] 90 mg PO BID Discontinued Clindamycin HCl 300 mg PO TID Ciprofloxacin HCl [Cipro] 500 mg PO Q12HR Discharge Medication List Aspirin [Adult Low Dose Aspirin EC] 81 mg PO HS 08/06/18 [History] Atorvastatin [Lipitor] 40 mg PO HS 08/06/18 [History] Ertugliflozin Pidolate [Steglatro] 15 mg PO DAILY 08/06/18 [History] Ticagrelor [Brilinta] 90 mg PO BID 08/06/18 [History] metFORMIN HCL [Glucophage] 1,000 mg PO BID 08/06/18 [History] sitaGLIPtin [Januvia] 100 mg PO DAILY 08/06/18 [History] Cefuroxime Axetil [Cefuroxime] 500 mg PO BID #20 tab 10/14/18 [Rx] Follow up Appointment(s)/Referral(s): Kwabena Bettencourt MD [Primary Care Provider] - 3 Days (Office will call patient with appointment.) Magan Morales MD [STAFF PHYSICIAN] - As Needed (Call office with any questions or concerns.) Patient Instructions/Handouts: Cellulitis (DC) Discharge Disposition: HOME SELF-CARE
== END 2018-10-14 13:51 | disposition home or self-care (01) | DRG 863 ==
LOC: EC 14:47 → 4SSUR 17:35 → OBSVTOIN 10-11 13:44
PROVIDERS: ADMIT Hospitalist; ATTEND Hospitalist
DX: T81.41XA Infection following a procedure, superficial incisional surgical site, initial encounter (principal); L03.116 Cellulitis of left lower limb; E11.42 Type 2 diabetes mellitus with diabetic polyneuropathy; E11.621 Type 2 diabetes mellitus with foot ulcer; E11.319 Type 2 diabetes mellitus with unspecified diabetic retinopathy without macular edema; L97.529 Non-pressure chronic ulcer of other part of left foot with unspecified severity; E11.39 Type 2 diabetes mellitus with other diabetic ophthalmic complication; E11.36 Type 2 diabetes mellitus with diabetic cataract; I25.10 Atherosclerotic heart disease of native coronary artery without angina pectoris; I10 Essential (primary) hypertension; E78.5 Hyperlipidemia, unspecified; H40.9 Unspecified glaucoma; G89.29 Other chronic pain; M54.5 Low back pain; E66.9 Obesity, unspecified; Z68.36 Body mass index [BMI] 36.0-36.9, adult; Z79.82 Long term (current) use of aspirin; Z79.84 Long term (current) use of oral hypoglycemic drugs; Z79.02 Long term (current) use of antithrombotics/antiplatelets; Z79.2 Long term (current) use of antibiotics; Z79.899 Other long term (current) drug therapy; Z87.01 Personal history of pneumonia (recurrent); Z95.5 Presence of coronary angioplasty implant and graft; Z87.39 Personal history of other diseases of the musculoskeletal system and connective tissue; Z98.890 Other specified postprocedural states; Z88.0 Allergy status to penicillin; Z82.49 Family history of ischemic heart disease and other diseases of the circulatory system; Z83.3 Family history of diabetes mellitus; Z80.1 Family history of malignant neoplasm of trachea, bronchus and lung; Z81.2 Family history of tobacco abuse and dependence; Y83.8 Other surgical procedures as the cause of abnormal reaction of the patient, or of later complication, without mention of misadventure at the time of the procedure; M19.90 Unspecified osteoarthritis, unspecified site
CPT/HCPCS: 36415; 80048; 80053; 80202; 83036; 85025; 87040; 87070; 87205; 96361; 96365; 96375; 99285

== ENCOUNTER → 2018-12-11 | Outpatient (CLI) | payer OTHER ==
[~2018-12-11] MED LIST: cefTRIAXone 1,000 MG VIAL (IM USE) IM NR
[2018-12-11 11:18] VITALS: BP 139/80; PULSE 80; RESP 16; TEMP 97
== END ==
LOC: PROCWHC3 10:57
PROVIDERS: ATTEND Nurse Practitioner Family
DX: E11.621 Type 2 diabetes mellitus with foot ulcer (principal); M86.20 Subacute osteomyelitis, unspecified site; L03.90 Cellulitis, unspecified
CPT/HCPCS: 96372; J0696

== ENCOUNTER 2018-12-12 10:10 | Inpatient (IN) | payer OTHER ==
--- NOTE | 2018-12-12 10:49 | ED ---
Skin/Abscess/FB HPI <Brian Jiang - Last Filed: 12/12/18 11:35> - General Source: patient Mode of arrival: wheelchair Limitations: no limitations <Ibsi Austin - Last Filed: 12/12/18 11:44> - General Chief complaint: Skin/Abscess/Foreign Body Stated complaint: diabetic ulcers lt foot Time Seen by Provider: 12/12/18 10:18 - History of Present Illness Initial comments: Patient is a 53-year-old male presenting to emergency Department with complaints of a diabetic ulcer on his left foot has become infected over the past 2 days. Patient has a chronic diabetic ulcer on the dorsal aspect of his left foot that he's been treating since July. History of osteomyelitis as well as partial amputations of the fourth and fifth digit. Patient goes to the wound care clinic once a week and yesterday they noticed a new wound starting and wanted him to come in to the ER for IV antibiotics and possible debridement. Patient denies fever, chills, nausea, vomiting, diarrhea. Patient states he has noticed an increase in pain in his left foot in the past few days. Patient is not currently on antibiotics. Patient has no other complaints at this time. Upon arrival to ER, vital signs are stable, afebrile. (Ibis Austin) - Related Data Home Medications Medication Instructions Recorded Confirmed Aspirin [Adult Low Dose Aspirin EC] 81 mg PO HS 08/06/18 12/12/18 Atorvastatin [Lipitor] 40 mg PO HS 08/06/18 12/12/18 Ertugliflozin Pidolate [Steglatro] 15 mg PO DAILY 08/06/18 12/12/18 Ticagrelor [Brilinta] 90 mg PO BID 08/06/18 12/12/18 metFORMIN HCL [Glucophage] 1,000 mg PO BID 08/06/18 12/12/18 sitaGLIPtin [Januvia] 100 mg PO DAILY 08/06/18 12/12/18 Allergies Allergy/AdvReac Type Severity Reaction Status Date / Time Penicillins Allergy Anaphylaxis Verified 12/12/18 10:11 Review of Systems ROS Other: All systems not noted in ROS Statement are negative. <Brian Jiang - Last Filed: 12/12/18 11:35> ROS Other: All systems not noted in ROS Statement are negative. <Ibis Austin - Last Filed: 12/12/18 11:44> ROS Statement: Those systems with pertinent positive or pertinent negative responses have been documented in the HPI. Past Medical History Past Medical History: Coronary Artery Disease (CAD), Diabetes Mellitus, Hyp erlipidemia, Pneumonia Additional Past Medical History / Comment(s): NIDDM type II, neuropathy bilateral feet and hands, bilateral eye retinopathy, R eye glaucoma and the star ting of cataracts bilateral eyes, bronchitis, chronic low back pain, some clausterphobia, current L planter ulcer.osteomylitis History of Any Multi-Drug Resistant Organisms: None Reported Past Surgical History: Back Surgery, Heart Catheterization With Stent, Orthopedic Surgery Additional Past Surgical History / Comment(s): Lumbar discectomy, PCI wit total of 5 stents done at [facility], foot debridement by diesel power shovel operator, L rotator cuff repair, nasal fracture with surgery. Past Anesthesia/Blood Transfusion Reactions: No Reported Reaction Date of Last Stent Placement:: 2017 Past Psychological History: No Psychological Hx Reported Smoking Status: Never smoker Past Alcohol Use History: None Reported Past Drug Use History: None Reported - Past Family History Father Family Medical History: Cancer, Coronary Artery Disease (CAD), Diabetes Mellitus Additional Family Medical History / Comment(s): Father had lung cancer. He was a smoker. He was also diabetic and had heart disease which he of at the age of 67yrs. Mother Family Medical History: Coronary Artery Disease (CAD), Diabetes Mellitus Additional Family Medical History / Comment(s): Mother had a pacer and AICD. She of heart disease at the age of 77yrs. <Ibis Austin - Last Filed: 12/12/18 11:44> General Exam Limitations: no limitations <Ibis Austin - Last Filed: 12/12/18 11:44> - General Exam Comments Initial Comments: GENERAL: Well-appearing, well-nourished and in no acute distress. HEAD: Atraumatic, normocephalic. EYES: Pupils equal round and reactive to light, extraocular movements intact, sclera anicteric, conjunctiva are normal. ENT: Nares patent, oropharynx clear without exudates. Moist mucous membranes. NECK: Normal range of motion, supple without lymphadenopathy or JVD. LUNGS: Breath sounds clear to auscultation bilaterally and equal. No wheezes rales or rhonchi. HEART: Regular rate and rhythm without murmurs, rubs or gallops. ABDOMEN: Soft, nontender, normoactive bowel sounds. No masses appreciated. EXTREMITIES: Normal active range of motion of the left ankle and foot. Patient has decreased range of motion of the left fourth and fifth digits secondary to previous surgeries. There is no swelling at this time. Neurovascular intact. NEUROLOGICAL: Cranial nerves II through XII grossly intact. Normal speech, normal gait. PSYCH: Normal mood, normal affect. SKIN: Warm, Dry, normal turgor. Patient has a nickel-sized chronic open wound on the dorsal aspect of his left foot just proximal to the fourth metatarsal. There is mild surrounding erythema and pain with palpation. There are exposed tendons. Patient also has a second smaller wound just distal to the first wound that is erythematous with drainage, and a new smaller wound in between the fourth and fifth digit. (Ibis Austin) Course Vital Signs 12/12/18 10:11 Temperature 97.8 F Pulse Rate 85 Respiratory 18 Rate Blood Pressure 123/74 O2 Sat by Pulse 98 Oximetry Medical Decision Making - Lab Data Result diagrams: 12/12/18 10:40 12/12/18 10:40 <Brian Jiang - Last Filed: 12/12/18 11:35> - Lab Data Result diagrams: 12/12/18 10:40 12/12/18 10:40 <Ibis Austin - Last Filed: 12/12/18 11:44> - Medical Decision Making Patient reexamined and reevaluated by myself, Dr. Jiang. Patient resting comfortably in bed. Patient does have chronic left foot ulcer that has progressively worsen with new areas near the fourth and fifth digits. X-ray has some concern for osteo-. Patient reevaluated and reexamined. I do agree with the findings. This includes diagnostic interpretation and treatment plan. Results reviewed. Patient is updated on results and plan. Patient states he is at the wound center yesterday and was told to come in for admission with consult for Dr. Sparks for procedure on Friday. Consults will be placed with Dr. Morales and Dr. Sparks. (Brian Jiang) Patient is a 53-year-old male presenting with a chronic diabetic ulcer on the dorsal aspect of the left foot that has worsened in the past 2 days. Patient is currently seeing the wound clinic once a week. Patient was told yesterday to come in for admission. Left foot x-ray does show concern for osteo-. Lab work today is unremarkable. Wound/blood cultures pending. Patient's vital signs are stable, afebrile. Case was discussed with Dr. Jiang. Patient will be admitted with consults with Dr. Morales and Dr. Sparks. Patient will be started on IV antibiotics. Patient is in agreement with this plan of care. (Ibis Austin) - Lab Data Lab Results 12/12/18 12/12/18 Range/Units 10:40 10:40 WBC 5.7 (3.8-10.6) k/uL RBC 5.29 (4.30-5.90) m/uL Hgb 15.5 (13.0-17.5) gm/dL Hct 44.4 (39.0-53.0) % MCV 83.9 (80.0-100.0) fL MCH 29.2 (25.0-35.0) pg MCHC 34.8 (31.0-37.0) g/dL RDW 13.9 (11.5-15.5) % Plt Count 270 (150-450) k/uL Neutrophils % 61 % Lymphocytes % 20 % Monocytes % 8 % Eosinophils % 8 % Basophils % 1 % Neutrophils # 3.5 (1.3-7.7) k/uL Lymphocytes # 1.1 (1.0-4.8) k/uL Monocytes # 0.5 (0-1.0) k/uL Eosinophils # 0.5 (0-0.7) k/uL Basophils # 0.1 (0-0.2) k/uL Sodium 140 (137-145) mmol/L Potassium 4.5 (3.5-5.1) mmol/L Chloride 106 (98-107) mmol/L Carbon Dioxide 23 (22-30) mmol/L Anion Gap 11 mmol/L BUN 18 (9-20) mg/dL Creatinine 0.98 (0.66-1.25) mg/dL Est GFR (CKD-EPI)AfAm >90 (>60 ml/min/1.73 sqM) Est GFR (CKD-EPI)NonAf 90 (>60 ml/min/1.73 sqM) Glucose 160 H (74-99) mg/dL Calcium 9.4 (8.4-10.2) mg/dL Total Bilirubin 0.5 (0.2-1.3) mg/dL AST 40 (17-59) U/L ALT 35 (21-72) U/L Alkaline Phosphatase 66 (38-126) U/L Total Protein 7.4 (6.3-8.2) g/dL Albumin 4.3 (3.5-5.0) g/dL Disposition <Brian Jiang - Last Filed: 12/12/18 11:35> Is patient prescribed a controlled substance at d/c from ED?: No Decision Date: 12/12/18 Decision Time: 11:44 <Ibis Austin - Last Filed: 12/12/18 11:44> Clinical Impression: Diabetic ulcer of left foot associated with diabetes mellitus due to underlying condition, with fat layer exposed, Hx of osteomyelitis, Cellulitis of left foot Disposition: ADMITTED IP TO THIS HOSP Condition: Stable Referrals: Kwabena Bettencourt MD [Primary Care Provider] - 1-2 days
[2018-12-12 11:09] LABS: Basophils # (A) 0.1 k/uL (0-0.2); Basophils % (A) 1 %; Eosinophils # (A) 0.5 k/uL (0-0.7); Eosinophils % (A) 8 %; HCT 44.4 % (39.0-53.0); HGB 15.5 gm/dL (13.0-17.5); Lymphocytes # (A) 1.1 k/uL (1.0-4.8); Lymphocytes % (A) 20 %; MCH 29.2 pg (25.0-35.0); MCHC 34.8 g/dL (31.0-37.0); MCV 83.9 fL (80.0-100.0); Mean Platelet Volume 5.8; Monocytes # (A) 0.5 k/uL (0-1.0); Monocytes % (A) 8 %; Neutrophils # (A) 3.5 k/uL (1.3-7.7); Neutrophils % (A) 61 %; Platelet Count 270 k/uL (150-450); RBC 5.29 m/uL (4.30-5.90); RDW 13.9 % (11.5-15.5); WBC 5.7 k/uL (3.8-10.6)
[2018-12-12 11:16] LABS: ALT 35 U/L (21-72); AST 40 U/L (17-59); African American GFR (CKD) >90 (>60 ml/min/1.73 sqM); Albumin 4.3 g/dL (3.5-5.0); Alkaline Phosphatase 66 U/L (38-126); Anion Gap 11 mmol/L; Blood Urea Nitrogen 18 mg/dL (9-20); Calcium 9.4 mg/dL (8.4-10.2); Carbon Dioxide 23 mmol/L (22-30); Chloride 106 mmol/L (98-107); Glucose 160 mg/dL (74-99); Potassium 4.5 mmol/L (3.5-5.1); Sodium 140 mmol/L (137-145); Total Bilirubin 0.5 mg/dL (0.2-1.3); Total Protein 7.4 g/dL (6.3-8.2)
--- NOTE | 2018-12-12 11:19 | XR ---
EXAMINATION TYPE: XR foot complete LT , 3 VIEWS DATE OF EXAM ORDERED: 12/12/2018 HISTORY: infection, 4th-5th digits. COMPARISON: Previous study dated 10/10/2018. FINDINGS: There is a soft tissue defect overlying the distal head of the fourth metatarsal. There is been a previous amputation of the distal end of the proximal phalanges of the fourth and fifth digit s. There is vascular calcification. There are mild degenerative changes in the left first MCP joint. There is vascular calcification. There is a prominent plantar calcaneal spur. IMPRESSION: 1. POSTSURGICAL CHANGE. 2. EVIDENCE OF A SOFT TISSUE DEFECT OVERLYING THE FOURTH METATARSAL HEAD WITH INCREASING EROSIVE RIVAS GE.
[2018-12-12] MEDS ORDERED: NALOXONE 0.4 MG/ML 1 ML VIAL IV PRN (11:30)
[2018-12-12] MEDS ORDERED: ONDANSETRON 4 MG/2 ML VIAL IVP PRN (11:30)
[2018-12-12] MEDS ORDERED: traMADol 50 MG TAB PO PRN (11:30)
[2018-12-12] MEDS ORDERED: AMPICILLIN-SULBACTAM 3 GM in SODIUM CHLORIDE 0.9% 100 ML IVPB STA (11:34)
[2018-12-12] MEDS ORDERED: VANCOMYCIN IV PER PHARMACY 1 EACH MISC MISCELLANE PRN (11:34)
[2018-12-12] MEDS: SODIUM CHLORIDE 0.9% 1,000 ML IV SCH (11:52)
[2018-12-12] MEDS ORDERED: VANCOMYCIN 2,000 MG in SODIUM CHLORIDE 0.9% 500 ML 500 ML IVPB ONE (12:00)
[2018-12-12 12:30] LABS: Glucose,Whole Blood 130 mg/dL (75-99)
[2018-12-12 17:01] LABS: Glucose,Whole Blood 105 mg/dL (75-99)
[2018-12-12] MEDS: INSULIN ASPART (NovoLOG) 100 UNIT/ML VIAL SQ SCH ×2 (17:37→20:55)
[2018-12-12] MEDS: metFORMIN 500 MG TAB PO SCH (17:51)
[2018-12-12 20:37] LABS: Glucose,Whole Blood 148 mg/dL (75-99)
[2018-12-12] MEDS: ASPIRIN 81 MG PO SCH (20:54)
[2018-12-12] MEDS: ATORVASTATIN 40 MG TAB PO SCH (20:54)
[2018-12-12] MEDS: TICAGRELOR 90 MG TAB PO SCH (20:54)
[2018-12-12] MEDS: VANCOMYCIN 1,750 MG in SODIUM CHLORIDE 0.9% 500 ML 500 ML IVPB SCH (20:58)
--- NOTE | 2018-12-12 22:28 | P.HPIM ---
History of Present Illness H&P Date: 12/12/18 Chief Complaint: Left foot ulcer Patient is a 53-year-old male with a known history of left diabetic foot ulcer, coronary artery disease with history of stent placement 5 stents, history of left foot debridement by podiatric was recommended by wound care clinic to come to ER for surgical debridement and antibiotics due to infection. Patient has been having chronic diabetic ulcer on the dorsum of the foot since July 2018. he also had history of osteomyelitis and partial amputation of the fourth metatarsal. Patient had surgery with amputation of fourth metatarsal with stitches troponin and september. Patient has been going to wound care center and was with the better. Patient was recently started on hyperbaric therapy on and on proper the wound to put new tissue for growth. Patient was also noticed to have another ulcer between the toes. Patient has been having worsening pain and purulent drainage from the wound. Patient was seen by vascular surgery Dr. Bowers and recommended to go to ER yesterday. Patient came to ER for evaluation today. Denied any fever or chills. \ no chest pain or shortness of breath. No nausea vomiting abdominal pain. Patient previously had uncontrolled diabetes type 2. Currently following with Dr. Andujar.. Previous A1c was 11.7 came down to 6.5 recently. Left foot x-ray showed forced surgical change. evidence of soft tissue defect overlying the fourth metatarsal head with increasing there is a change. Patient was started on antibiotics in the form of vancomycin currently. Review of Systems Constitutional: Patient denies any fever or chills . No generalized weakness or weight loss. Abdomen: Patient denied nausea vomiting and diarrhea and abdominal pain. Cardiovascular: Patient denies any chest pain or short of breath no palpitations. Respiratory: patient denied any cough is from production. No shortness of breath Neurologic: Patient denied any numbness or tingling headache. Musculoskeletal: Patient denies any complaints of joint swelling or deformity. Left foot ulcer and pain. Skin: Negative Psychiatric: Negative Endocrine: No heat or cold intolerance. No recent weight gain. Genitourinary: No dysuria or hematuria. All other 14 point ROS negative except the above Past Medical History Past Medical History: Coronary Artery Disease (CAD), Diabetes Mellitus, Hyperlipidemia, Pneumonia Additional Past Medical History / Comment(s): NIDDM type II, neuropathy bilateral feet and hands, bilateral eye retinopathy, R eye glaucoma and the starting of cataracts bilateral eyes, bronchitis, chronic low back pain, some clausterphobia, current L planter ulcer.osteomylitis History of Any Multi-Drug Resistant Organisms: None Reported Past Surgical History: Back Surgery, Heart Catheterization With Stent, Orthopedic Surgery Additional Past Surgical History / Comment(s): Lumbar discectomy, PCI wit total of 5 stents done at [facility], foot debridement by supervisor cytogenetic laboratory, L rotator cuff repair, nasal fracture with surgery. Past Anesthesia/Blood Transfusion Reactions: No Reported Reaction Date of Last Stent Placement:: 2017 Past Psychological History: No Psychological Hx Reported Additional Psychological History / Comment(s): and lives in the family home with his and teenage son. 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 International travel. No animals in the home. No tobacco use. No recreational drug use or significant alcohol use is related Smoking Status: Never smoker Past Alcohol Use History: None Reported Past Drug Use History: None Reported - Past Family History Father Family Medical History: Cancer, Coronary Artery Disease (CAD), Diabetes Mellitus Additional Family Medical History / Comment(s): Father had lung cancer. He was a smoker. He was also diabetic and had heart disease which he of at the age of 67yrs. Mother Family Medical History: Coronary Artery Disease (CAD), Diabetes Mellitus Additional Family Medical History / Comment(s): Mother had a pacer and AICD. She of heart disease at the age of 77yrs. Medications and Allergies Home Medications Medication Instructions Recorded Confirmed Type Aspirin [Adult Low Dose Aspirin EC] 81 mg PO HS 08/06/18 12/12/18 History Atorvastatin [Lipitor] 40 mg PO HS 08/06/18 12/12/18 History Ertugliflozin Pidolate [Steglatro] 15 mg PO DAILY 08/06/18 12/12/18 History Ticagrelor [Brilinta] 90 mg PO BID 08/06/18 12/12/18 History metFORMIN HCL [Glucophage] 1,000 mg PO BID 08/06/18 12/12/18 History sitaGLIPtin [Januvia] 100 mg PO DAILY 08/06/18 12/12/18 History Allergies Allergy/AdvReac Type Severity Reaction Status Date / Time Penicillins Allergy Anaphylaxis Verified 12/12/18 10:11 Physical Exam Vitals: Vital Signs Temp Pulse Pulse Resp BP BP Pulse Ox 12/12/18 12:35 98.2 F 83 16 131/79 97 12/12/18 11:55 97.7 F 81 18 112/71 98 12/12/18 10:11 97.8 F 85 18 123/74 98 Intake and Output 12/12/18 12/12/18 12/12/18 06:59 14:59 22:59 Other: # Voids 1 Weight 106.141 kg PHYSICAL EXAMINATION: Patient is lying in the bed comfortably, no acute distress, awake alert and oriented.. HEENT: Normocephalic. Neck is supple. Pupils reactive. Nostrils clear. Oral cavity is moist. Ears reveal no drainage. Neck reveals no JVD, carotid bruits, or thyromegaly. CHEST EXAMINATION: Trachea is central. Symmetrical expansion. Lung rowe clear to auscultation and percussion. CARDIAC: Normal S1, S2 with no gallops. No murmurs ABDOMEN: Soft. Bowel sounds normal. No organomegaly. No abdominal bruits. Extremities: reveal no edema. No clubbing or cyanosis Patient does have also over the distal left fourth metatarsal with purulent base. No drainage noted. Tender to palpation and warm. Neurologically awake, alert, oriented x3 with well-coordinated movements. No focal deficits noted Skin: No rash or skin lesions. Psychiatric: Coperative. Nonsuicidal Musculoskeletal: No joint swelling or deformity. Normal range of motion. Results CBC & Chem 7: 12/12/18 10:40 12/12/18 10:40 Labs: Abnormal Lab Results - Last 24 Hours (Table) 12/12/18 12/12/18 12/12/18 Range/Units 10:40 12:18 16:49 Glucose 160 H (74-99) mg/dL POC Glucose (mg/dL) 130 H 105 H (75-99) mg/dL 12/12/18 Range/Units 20:25 Glucose (74-99) mg/dL POC Glucose (mg/dL) 148 H (75-99) mg/dL Microbiology - Last 24 Hours (Table) 12/12/18 10:40 Wound Culture - Preliminary Foot - Left Thrombosis Risk Factor Assmnt - DVT/VTE Prophylaxis DVT/VTE Prophylaxis: Pharmacologic Prophylaxis ordered - Choose All That Apply Each Factor Represents 1 point: Age 41-60 years, Obesity (BMI >25) Other Risk Factors: No Thrombosis Risk Factor Assessment Total Risk Factor Score: 2 Thrombosis Risk Factor Assessment Level: Low Risk Assessment and Plan Assessment: Left foot diabetic ulcer. Failed outpatient therapy. History of left fourth metatarsal amputation and also osteomyelitis with antibiotic course Uncontrolled diabetes type 2 with hyperglycemia Hyperlipidemia Coronary artery disease with history of stent placement 5 Diabetic peripheral neuropathy Bilateral diabetic retinopathy Chronic low back pain DVT prophylaxis with heparin subcu Plan: Patient will be continued on antibiotics in the form of vancomycin. Continue the wound care. ID and surgery will be consulted. Continue with insulin dosing and leading scale for better blood sugar control. Continue the home medications and pain management. Follow up closely and further recommendations based on the clinical course. Time with Patient: Greater than 30
[2018-12-13] MEDS: HEPARIN SODIUM,PORCINE 5,000 UNIT/ML 1 ML VIAL SQ SCH ×4 (00:03→21:32)
[2018-12-13] MEDS: SODIUM CHLORIDE 0.9% 1,000 ML IV SCH ×2 (04:27→21:27)
[2018-12-13 07:11] LABS: Glucose,Whole Blood 139 mg/dL (75-99)
[2018-12-13 07:24] LABS: African American GFR (CKD) >90 (>60 ml/min/1.73 sqM)
[2018-12-13] MEDS: INSULIN ASPART (NovoLOG) 100 UNIT/ML VIAL SQ SCH ×4 (07:43→21:29)
[2018-12-13] MEDS: VANCOMYCIN 1,750 MG in SODIUM CHLORIDE 0.9% 500 ML 500 ML IVPB SCH ×2 (07:54→21:25)
[2018-12-13] MEDS: TICAGRELOR 90 MG TAB PO SCH (07:55)
[2018-12-13] MEDS: metFORMIN 500 MG TAB PO SCH ×2 (07:55→17:10)
[2018-12-13] MEDS: NON FORMULARY DRUG (Ertugliflozin Pidolate [Steglatro] 15 MG) PO SCH (07:56)
[2018-12-13] MEDS: LINAGLIPTIN 5 MG TABLET PO SCH (07:56)
--- NOTE | 2018-12-13 09:30 | P.CONS ---
History of Present Illness - Reason for Consult Consult date: 12/12/18 Left diabetic foot wound infection Requesting physician: Sanjay Hernández - Chief Complaint Left foot nonhealing wound, pain and drainage x few days - History of Present Illness Patient is a 53-year-old male with underlying diabetes mellitus patient had did have a history of left diabetic foot infection with underlying osteomyelitis for which the patient did have IV antibiotic therapy patient mentioned that his plantar wound close up subsequently patient did have surgery done by his j2ee software engineer with removal of the metatarsal head fourth and fifth toe patient mentioning that the incision on the dorsum aspect of his left foot open up leading to formation of the wound for the patient has been following with [facility] [place] with the nurse practitioner patient noticed to have more swelling and redness around the wound area from which cultures were obtained which are currently growing staph aureus and enterococcus species patient was advised admission to hospital on Friday however the patient was unable to go to the hospital subsequently presented to the ER this morning the patient was evaluated by ER physician patient did have a x-rays of the left foot we did shows a soft tissue defect and increasing the erosive changes in the bone patient did receive a dose of Unasyn in the ER subsequently has been started on vancomycin and admitted to the hospital infection disease was consulted for further recommendation for antibiotic therapy The patient is currently afebrile the patient complaining of pain to the left fo ot that apparently slightly increased over the last few days more of a dull aching pain intensity 78 out of 10 and no radiation with associated swelling redness to the left foot and did have some drainage wound base did have slough tissue but no foul-smelling Review of Systems CONSTITUTIONAL: Positive for weakness. Denies high-grade Fever EYES: No complaint. ENT:No complaint. RESPIRATORY: No complaint. CARDIOVASCULAR: No complaint. GENITOURINARY: No complaint. GASTROINTESTINAL: No complaint. MUSCULOSKELETAL: As per history of present illness INTEGUMENTARY: As per history of present illness. PSYCHOLOGICAL: No complaint. ENDOCRINE: No complaint. NEUROLOGIC: No complaint. Past Medical History Past Medical History: Coronary Artery Disease (CAD), Diabetes Mellitus, Hyperlipidemia, Pneumonia Additional Past Medical History / Comment(s): NIDDM type II, neuropathy bilateral feet and hands, bilateral eye retinopathy, R eye glaucoma and the starting of cataracts bilateral eyes, bronchitis, chronic low back pain, some clausterphobia, current L planter ulcer.osteomylitis History of Any Multi-Drug Resistant Organisms: None Reported Past Surgical History: Back Surgery, Heart Catheterization With Stent, Orthopedic Surgery Additional Past Surgical History / Comment(s): Lumbar discectomy, PCI wit total of 5 stents done at [facility], foot debridement by j2ee software engineer, L rotator cuff repair, nasal fracture with surgery. Past Anesthesia/Blood Transfusion Reactions: No Reported Reaction Date of Last Stent Placement:: 2017 Past Psychological History: No Psychological Hx Reported Additional Psychological History / Comment(s): and lives in the family home with his and teenage son. 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 No animals in the home. No tobacco use. No recreational drug use or significant alcohol use is related Smoking Status: Never smoker Past Alcohol Use History: None Reported Past Drug Use History: None Reported - Past Family History Father Family Medical History: Cancer, Coronary Artery Disease (CAD), Diabetes Mellitus Additional Family Medical History / Comment(s): Father had lung cancer. He was a smoker. He was also diabetic and had heart disease which he of at the age of 67yrs. Mother Family Medical History: Coronary Artery Disease (CAD), Diabetes Mellitus Additional Family Medical History / Comment(s): Mother had a pacer and AICD. She of heart disease at the age of 77yrs. Medications and Allergies Home Medications Medication Instructions Recorded Confirmed Type Aspirin [Adult Low Dose Aspirin EC] 81 mg PO HS 08/06/18 12/12/18 History Atorvastatin [Lipitor] 40 mg PO HS 08/06/18 12/12/18 History Ertugliflozin Pidolate [Steglatro] 15 mg PO DAILY 08/06/18 12/12/18 History Ticagrelor [Brilinta] 90 mg PO BID 08/06/18 12/12/18 History metFORMIN HCL [Glucophage] 1,000 mg PO BID 08/06/18 12/12/18 History sitaGLIPtin [Januvia] 100 mg PO DAILY 08/06/18 12/12/18 History Allergies Allergy/AdvReac Type Severity Reaction Status Date / Time Penicillins Allergy Anaphylaxis Verified 12/12/18 10:11 Physical Exam Vitals: Vital Signs Temp Pulse Pulse Resp BP BP Pulse Ox 12/12/18 12:35 98.2 F 83 16 131/79 97 12/12/18 11:55 97.7 F 81 18 112/71 98 12/12/18 10:11 97.8 F 85 18 123/74 98 Intake and Output 12/11/18 12/12/18 12/12/18 22:59 06:59 14:59 Other: Weight 106.141 kg GENERAL DESCRIPTION: Middle-aged male lying in bed, no distress. No tachypnea or accessory muscle of respiration use. HEENT: Shows Pallor , no scleral icterus. Oral mucous membrane is dry. No pharyngeal erythema or thrush NECK: Trachea central, no thyromegaly. LUNGS: Unlabored breathing. Clear to auscultation anteriorly. No wheeze or crackle. HEART: S1, S2, regular rate and rhythm. No loud murmur ABDOMEN: Soft, no tenderness , guarding or rigidity, no organomegaly EXTREMITIES: No edema of feet. Left foot dorsum wound at the base of the fourth toe did show slough tissue no surrounding swelling redness he did have a small wound on the medial aspect of the left fifth toe with no slough tissue surrounding swelling redness or any drainage SKIN: No rash, no masses palpable. NEUROLOGICAL: The patient is awake, alert, oriented x3, mood and affect normal. Results CBC & Chem 7: 12/12/18 10:40 12/13/18 06:35 Labs: Abnormal Lab Results - Last 24 Hours (Table) 12/12/18 12/12/18 Range/Units 10:40 12:18 Glucose 160 H (74-99) mg/dL POC Glucose (mg/dL) 130 H (75-99) mg/dL Assessment and Plan Assessment: 1-patient with left diabetic foot wound Potts's grade 3, infection and cellulitis with outpatient culture positive for staph aureus and enterococcus concern is likely for MRSA in this patient who has been exposed to multiple antibiotic courses and has been in and out of the hospital, with the x-ray and it shows progressing erosive changes with concern for underlying Osteomyelitis 2-penicillin ALLERGY that would limit the number of antibiotic safe to use (1) Cellulitis of left foot Current Visit: Yes Status: Acute Code(s): L03.116 - CELLULITIS OF LEFT LOWER LIMB SNOMED Code(s): 526295692 (2) Diabetic ulcer of left foot associated with diabetes mellitus due to underlying condition, with fat layer exposed Current Visit: Yes Status: Acute Code(s): E08.621 - DIABETES MELLITUS DUE TO UNDERLYING CONDITION W FOOT ULCER; L97.522 - NON-PRS CHRONIC ULCER OTH PRT LEFT FOOT W FAT LAYER EXPOSED SNOMED Code(s): 896722288 Plan: 1-Vancomycin pharmacy to dose target trough of 15 while watching his kidney function and Vanco trough closely 2-local wound care with them and honey followed by moist dressing to be changed daily 3-await vascular surgery evaluation debridement and deep cultures We will follow on clinical condition and cultures to further adjust medication if needed Thank you for this consultation will follow this patient with you Time with Patient: Greater than 30
--- NOTE | 2018-12-13 09:40 | P.GSCN ---
History of Present Illness Consult date: 12/13/18 Reason for Consult: Infected diabetic ulcer Requesting physician: Sanjay Hernández History of present illness: This is a 53-year-old gentleman who follows on an outpatient basis with Dr. Kwabena Bettencourt. He has a previous medical history of diabetic wounds to the left foot receiving treatment in the wound care center, pze-sgyagmd-[id number] diabetes mellitus previously uncontrolled, coronary artery disease status post cardiac stents, last stent placed November 2017, hyperlipidemia, peripheral neuropathy, and orthopedic surgeries. This gentleman has been receiving treatment since July of this year for chronic diabetic wounds to the dorsum of the left foot with history of osteomyelitis. He was seen Friday in the wound care center and brought back on for hyperbaric treatment. Upon dressing changes he was noted to have 2 more ulcerations and was requested to come to the hospital for IV antibiotics and potential surgical debridement. Dr. Sparks was consulted for surgical debridement, and Dr. Odom was consulted for antibiotic management. Review of Systems Review of systems was completed and was negative except as noted in the HPI Past Medical History Past Medical History: Coronary Artery Disease (CAD), Diabetes Mellitus, Hyperlipidemia, Pneumonia Additional Past Medical History / Comment(s): NIDDM type II, neuropathy bilateral feet and hands, bilateral eye retinopathy, R eye glaucoma and the starting of cataracts bilateral eyes, bronchitis, chronic low back pain, some clausterphobia, current L planter ulcer.osteomylitis History of Any Multi-Drug Resistant Organisms: None Reported Past Surgical History: Back Surgery, Heart Catheterization With Stent, Orthopedic Surgery Additional Past Surgical History / Comment(s): Lumbar discectomy, PCI wit total of 5 stents done at [facility] (last stent placed in November [address] Dooley), L foot debridement by survey and mapping technician, L rotator cuff repair, nasal fracture with surgery. Past Anesthesia/Blood Transfusion Reactions: No Reported Reaction Date of Last Stent Placement:: 2017 Past Psychological History: No Psychological Hx Reported Additional Psychological History / Comment(s): and lives in the family home with his and teenage son. 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 No animals in the home. No tobacco use. No recreational drug use or significant alcohol use is related Smoking Status: Never smoker Past Alcohol Use History: None Reported Past Drug Use History: None Reported - Past Family History Father Family Medical History: Cancer, Coronary Artery Disease (CAD), Diabetes Mellitus Additional Family Medical History / Comment(s): Father had lung cancer. He was a smoker. He was also diabetic and had heart disease which he of at the age of 67yrs. Mother Family Medical History: Coronary Artery Disease (CAD), Diabetes Mellitus Additional Family Medical History / Comment(s): Mother had a pacer and AICD. She of heart disease at the age of 77yrs. Medications and Allergies Home Medications Medication Instructions Recorded Confirmed Type Aspirin [Adult Low Dose Aspirin EC] 81 mg PO HS 08/06/18 12/12/18 History Atorvastatin [Lipitor] 40 mg PO HS 08/06/18 12/12/18 History Ertugliflozin Pidolate [Steglatro] 15 mg PO DAILY 08/06/18 12/12/18 History Ticagrelor [Brilinta] 90 mg PO BID 08/06/18 12/12/18 History metFORMIN HCL [Glucophage] 1,000 mg PO BID 08/06/18 12/12/18 History sitaGLIPtin [Januvia] 100 mg PO DAILY 08/06/18 12/12/18 History Allergies Allergy/AdvReac Type Severity Reaction Status Date / Time Penicillins Allergy Anaphylaxis Verified 12/12/18 10:11 Surgical - Exam Vital Signs Temp Pulse Resp BP Pulse Ox 97.8 F 85 18 123/74 98 12/12/18 10:11 12/12/18 10:11 12/12/18 10:11 12/12/18 10:11 12/12/18 10:11 - General well developed, well nourished, no distress, no pain - Eyes PERRL, normal ocular movement - ENT no hearing loss - Neck no masses, no bruits, trachea midline - Respiratory Lungs sounds clear bilaterally. Respirations even, nonlabored. Currently on room air with oxygen saturation 98%. No chest wall deformities. No clubbing or cyanosis. - Cardiovascular S1, S2 present. Regular rate and rhythm. Palpable peripheral pulses bilaterally. No edema present. No calf pain or tenderness noted. - Abdomen Abdomen: soft, non tender, bowel sounds - Genitourinary Deferred - Rectum Deferred - Integumentary Skin is warm and dry. Dorsum of left foot with wounds present, see pictures and measurements in chart - Neurologic normal coordination, normal sensation - Musculoskeletal normal gait, normal posture - Psychiatric oriented to time, oriented to person, oriented to place, speech is normal, memor y intact Results - Labs 12/12/18 10:40 12/13/18 06:35 Abnormal Lab Results - Last 24 Hours (Table) 12/12/18 12/12/18 12/12/18 Range/Units 10:40 12:18 16:49 Glucose 160 H (74-99) mg/dL POC Glucose (mg/dL) 130 H 105 H (75-99) mg/dL 12/12/18 12/13/18 Range/Units 20:25 07:00 Glucose (74-99) mg/dL POC Glucose (mg/dL) 148 H 139 H (75-99) mg/dL Microbiology - Last 24 Hours (Table) 12/12/18 10:40 Gram Stain - Preliminary Foot - Left Wound Culture - Preliminary Presumptive Staph aureus Diabetes panel 12/12/18 12/13/18 Range/Units 10:40 06:35 Sodium 140 (137-145) mmol/L Potassium 4.5 (3.5-5.1) mmol/L Chloride 106 (98-107) mmol/L Carbon Dioxide 23 (22-30) mmol/L BUN 18 (9-20) mg/dL Creatinine 0.98 0.90 (0.66-1.25) mg/dL Glucose 160 H (74-99) mg/dL Calcium 9.4 (8.4-10.2) mg/dL AST 40 (17-59) U/L ALT 35 (21-72) U/L Alkaline Phosphatase 66 (38-126) U/L Total Protein 7.4 (6.3-8.2) g/dL Albumin 4.3 (3.5-5.0) g/dL Calcium panel 12/12/18 Range/Units 10:40 Calcium 9.4 (8.4-10.2) mg/dL Albumin 4.3 (3.5-5.0) g/dL Pituitary panel 12/12/18 12/13/18 Range/Units 10:40 06:35 Sodium 140 (137-145) mmol/L Potassium 4.5 (3.5-5.1) mmol/L Chloride 106 (98-107) mmol/L Carbon Dioxide 23 (22-30) mmol/L BUN 18 (9-20) mg/dL Creatinine 0.98 0.90 (0.66-1.25) mg/dL Glucose 160 H (74-99) mg/dL Calcium 9.4 (8.4-10.2) mg/dL Adrenal panel 12/12/18 12/13/18 Range/Units 10:40 06:35 Sodium 140 (137-145) mmol/L Potassium 4.5 (3.5-5.1) mmol/L Chloride 106 (98-107) mmol/L Carbon Dioxide 23 (22-30) mmol/L BUN 18 (9-20) mg/dL Creatinine 0.98 0.90 (0.66-1.25) mg/dL Glucose 160 H (74-99) mg/dL Calcium 9.4 (8.4-10.2) mg/dL Total Bilirubin 0.5 (0.2-1.3) mg/dL AST 40 (17-59) U/L ALT 35 (21-72) U/L Alkaline Phosphatase 66 (38-126) U/L Total Protein 7.4 (6.3-8.2) g/dL Albumin 4.3 (3.5-5.0) g/dL Assessment and Plan Assessment: 1. Infected diabetic ulcer of the left foot with history of osteomyelitis, cultures demonstrating preliminary staph aureus and group D enterococcus 2. Svo-vuquvml-mnuqtwpof diabetes mellitus, most recent hemoglobin A1c 6.3% 3. Coronary artery disease status post stenting, last stent November 2017, currently on Brilinta 4. Hyperlipidemia 5. Peripheral neuropathy Plan: The patient was seen and examined at the bedside. His chart/diagnostics were reviewed. The case will be discussed in detail with Dr. Sparks. At this time continue local wound care with Thera-honey followed by moist dressing changes daily. Antibiotics per Dr. Odom. Will make determinations for surgical debridement with Dr. Sparks, patient should be off Brilinta prior to surgery. Medical management of other comorbidities per primary care service. More recommendations to follow. Thank you Dr. Hernández for this consult. We look forward to working with you in the care of your patient. Time with Patient: Greater than 30
[2018-12-13 11:48] LABS: Glucose,Whole Blood 133 mg/dL (75-99)
[2018-12-13 16:42] LABS: Glucose,Whole Blood 123 mg/dL (75-99)
[2018-12-13] MEDS: ACETAMINOPHEN TAB 325 MG TAB PO PRN (17:13)
--- NOTE | 2018-12-13 18:29 | PN ---
PROGRESS NOTE DATE OF SERVICE: 12/13/2018. REASON FOR FOLLOWUP: Left diabetic foot infection. INTERVAL HISTORY: The patient is currently afebrile. Patient is breathing comfortably. The patient denies having any worsening pain to the left foot area. No nausea, no vomiting. No abdominal pain and no diarrhea. PHYSICAL EXAMINATION: Blood pressure is 115/70 with a pulse of 95, temperature 98.1. She is 97% on room air. General description is a middle-aged male lying in bed in no distress. Respiratory system: Unlabored breathing. Clear to auscultation anteriorly. Heart S1, S2. Regular rate and rhythm. Abdomen soft. No tenderness. Left foot swelling and redness has slightly decreased. LABS: The wound culture presumptive Staph aureus. Blood culture remains to be negative. DIAGNOSTIC IMPRESSION AND PLAN: Patient with left diabetic foot infection with concern for underlying osteomyelitis finding, culture with Staph aureus with sensitivities currently pending. Patient does have a PENICILLIN ALLERGY. Currently covered with vancomycin. To continue local wound care with [facility]. Await surgical debridement. The patient is known to Dr. Morales and will be signed out to him for followup as of tomorrow. Continue supportive care. MMODL / IJN: [id number] /
[2018-12-13 20:20] LABS: Glucose,Whole Blood 146 mg/dL (75-99)
[2018-12-13] MEDS: ASPIRIN 81 MG PO SCH ×2 (21:28→21:29)
[2018-12-13] MEDS: ATORVASTATIN 40 MG TAB PO SCH (21:28)
--- NOTE | 2018-12-14 00:09 | P.PN ---
Subjective Progress Note Date: 12/13/18 Principal diagnosis: (Diabetic foot infection Patient is a 53-year-old male with a known history of left diabetic foot ulcer, coronary artery disease with history of stent placement 5 stents, history of left foot debridement by podiatric was recommended by wound care clinic to come to ER for surgical debridement and antibiotics due to infection. Patient has been having chronic diabetic ulcer on the dorsum of the foot since July 2018. he also had history of osteomyelitis and partial amputation of the fourth metatarsal. Patient had surgery with amputation of fourth metatarsal with stitches and september. Patient has been going to wound care center and was with the better. Patient was recently started on hyperbaric therapy on and on proper the wound to put new tissue for growth. Patient was also noticed to have another ulcer between the toes. Patient has been having worsening pain and purulent drainage from the wound. Patient was seen by [facility] surgery Dr. Bowers and recommended to go to ER yesterday. Patient came to ER for evaluation today. Denied any fever or chills. \ no chest pain or shortness of breath. No nausea vomiting abdominal pain. Patient previously had uncontrolled diabetes type 2. Currently following with Dr. Andujar.. Previous A1c was 11.7 came down to 6.5 recently. Left foot x-ray showed forced surgical change. evidence of soft tissue defect overlying the fourth metatarsal head with increasing there is a change. Patient was started on antibiotics in the form of vancomycin currently. 12/13/2018 Patient denied any complaints of chest pain or shortness of breath. Still complaining of left foot pain. Patient was admitted with nonhealing diabetic foot ulcer Surgery is planning for or. Brillanta is on hold. Continue the insulin regimen and sliding scale. Patient has been afebrile. Current medications reviewed Active Medications Acetaminophen (Tylenol Tab) 650 mg PO Q6HR PRN PRN Reason: Mild Pain or Fever > 100.5 Last Admin: 12/13/18 17:13 Dose: 650 mg Documented by: Aspirin (Aspirin) 81 mg PO HS [facility] Last Admin: 12/13/18 21:29 Dose: Not Given Documented by: Atorvastatin Calcium (Lipitor) 40 mg PO HS [facility] Last Admin: 12/13/18 21:28 Dose: 40 mg Documented by: Heparin Sodium (Porcine) (Heparin) 5,000 unit SQ Q8HR [facility] Last Admin: 12/13/18 21:32 Dose: Not Given Documented by: Sodium Chloride (Saline 0.9%) 1,000 mls @ 60 mls/hr IV .[id number] [facility] Last Admin: 12/13/18 21:27 Dose: 60 mls/hr Documented by: Vancomycin HCl 1,750 mg/ (Sodium Chloride) 500 mls @ 167 mls/hr IVPB Q12HR [facility] Last Admin: 12/13/18 21:25 Dose: 167 mls/hr Documented by: Insulin Aspart (Novolog) 0 unit SQ ACHS [facility]; Protocol Last Admin: 12/13/18 21:29 Dose: Not Given Documented by: Linagliptin (Tradjenta) 5 mg PO DAILY [facility] Last Admin: 12/13/18 07:56 Dose: 5 mg Documented by: Metformin HCl (Glucophage) 1,000 mg PO BID-W/MEALS [facility] Last Admin: 12/13/18 17:10 Dose: 1,000 mg Documented by: Miscellaneous Information (Vancomycin Trough Due) 0 each MISCELLANE DIRECTED ONE Stop: 12/14/18 08:01 Naloxone HCl (Narcan) 0.2 mg IV Q2M PRN PRN Reason: Opioid Reversal Non-Formulary Medication (Ertugliflozin Pidolate [Steglatro]) 15 mg PO DAILY [facility] Last Admin: 12/13/18 07:56 Dose: 15 mg Documented by: Ondansetron HCl (Zofran) 4 mg IVP Q8HR PRN PRN Reason: Nausea And Vomiting Tramadol HCl (Ultram) 50 mg PO Q6H PRN PRN Reason: Moderate Pain Objective - Vital Signs Vital signs: Vital Signs Temp 97.7 F 12/13/18 07:00 Pulse 74 12/13/18 08:00 Resp 16 12/13/18 08:00 BP 126/76 12/13/18 07:00 Pulse Ox 98 12/13/18 07:00 Intake & Output 12/12/18 12/13/18 12/13/18 18:59 06:59 18:59 Intake Total 110 Balance 110 Weight 106.141 kg Intake: Oral 110 Other: # Voids 1 - Exam PHYSICAL EXAMINATION: Patient is lying in the bed comfortably, no acute distress, awake alert and oriented.. HEENT: Normocephalic. Neck is supple. Pupils reactive. Nostrils clear. Oral cavity is moist. Ears reveal no drainage. Neck reveals no JVD, carotid bruits, or thyromegaly. CHEST EXAMINATION: Trachea is central. Symmetrical expansion. Lung rowe clear to auscultation and percussion. CARDIAC: Normal S1, S2 with no gallops. No murmurs ABDOMEN: Soft. Bowel sounds normal. No organomegaly. No abdominal bruits. Extremities: reveal no edema. No clubbing or cyanosis Patient does have also over the distal left fourth metatarsal with purulent base. No drainage noted. Tender to palpation and warm. Neurologically awake, alert, oriented x3 with well-coordinated movements. No focal deficits noted Skin: No rash or skin lesions. Psychiatric: Coperative. Nonsuicidal Musculoskeletal: No joint swelling or deformity. Normal range of motion. - Labs CBC & Chem 7: 12/12/18 10:40 12/13/18 06:35 Labs: Abnormal Lab Results - Last 24 Hours (Table) 12/12/18 12/12/18 12/13/18 Range/Units 16:49 20:25 07:00 POC Glucose (mg/dL) 105 H 148 H 139 H (75-99) mg/dL 12/13/18 Range/Units 11:32 POC Glucose (mg/dL) 133 H (75-99) mg/dL Microbiology - Last 24 Hours (Table) 12/12/18 10:40 Gram Stain - Preliminary Foot - Left Wound Culture - Preliminary Presumptive Staph aureus Assessment and Plan Assessment: Left foot diabetic ulcer. Failed outpatient therapy. History of left fourth metatarsal amputation and also osteomyelitis with antibiotic course Uncontrolled diabetes type 2 with hyperglycemia Hyperlipidemia Coronary artery disease with history of stent placement 5 Diabetic peripheral neuropathy Bilateral diabetic retinopathy Chronic low back pain DVT prophylaxis with heparin subcu Plan: Patient will be continued on antibiotics in the form of vancomycin. Continue the wound care. ID and surgery is following. Continue with insulin dosing and leading scale for better blood sugar control. Continue the home medications and pain management. Follow up closely and further recommendations based on the clinical course. Time with Patient: Greater than 30
[2018-12-14 07:10] LABS: Glucose,Whole Blood 127 mg/dL (75-99)
[2018-12-14] MEDS: INSULIN ASPART (NovoLOG) 100 UNIT/ML VIAL SQ SCH ×4 (07:16→20:51)
[2018-12-14 07:55] LABS: Basophils # (A) 0.1 k/uL (0-0.2); Basophils % (A) 2 %; Eosinophils # (A) 0.5 k/uL (0-0.7); Eosinophils % (A) 9 %; HCT 46.4 % (39.0-53.0); HGB 15.7 gm/dL (13.0-17.5); Lymphocytes # (A) 1.1 k/uL (1.0-4.8); Lymphocytes % (A) 22 %; MCH 28.7 pg (25.0-35.0); MCHC 33.9 g/dL (31.0-37.0); MCV 84.7 fL (80.0-100.0); Mean Platelet Volume 6.2; Monocytes # (A) 0.4 k/uL (0-1.0); Monocytes % (A) 7 %; Neutrophils # (A) 2.9 k/uL (1.3-7.7); Neutrophils % (A) 58 %; Platelet Count 258 k/uL (150-450); RBC 5.48 m/uL (4.30-5.90); RDW 13.8 % (11.5-15.5); WBC 5.1 k/uL (3.8-10.6)
[2018-12-14] MEDS ORDERED: VANCOMYCIN TROUGH DUE 1 EACH MISC MISCELLANE ONE (08:00)
[2018-12-14 08:05] LABS: African American GFR (CKD) >90 (>60 ml/min/1.73 sqM); Anion Gap 7 mmol/L; Blood Urea Nitrogen 14 mg/dL (9-20); Carbon Dioxide 27 mmol/L (22-30); Chloride 106 mmol/L (98-107); Glucose 182 mg/dL (74-99); Potassium 4.9 mmol/L (3.5-5.1); Sodium 140 mmol/L (137-145)
[2018-12-14] MEDS: HEPARIN SODIUM,PORCINE 5,000 UNIT/ML 1 ML VIAL SQ SCH ×3 (08:19→21:00)
[2018-12-14] MEDS: NON FORMULARY DRUG (Ertugliflozin Pidolate [Steglatro] 15 MG) PO SCH (08:24)
[2018-12-14] MEDS: LINAGLIPTIN 5 MG TABLET PO SCH (08:24)
[2018-12-14] MEDS: metFORMIN 500 MG TAB PO SCH ×2 (08:24→17:35)
[2018-12-14] MEDS: VANCOMYCIN 1,750 MG in SODIUM CHLORIDE 0.9% 500 ML 500 ML IVPB SCH ×2 (08:24→21:01)
[2018-12-14 12:07] LABS: Glucose,Whole Blood 104 mg/dL (75-99)
[2018-12-14 14:42] VITALS: BMI 36.6
[2018-12-14] MEDS: SODIUM CHLORIDE 0.9% 1,000 ML IV SCH (15:06)
--- NOTE | 2018-12-14 15:27 | P.PN ---
Subjective Progress Note Date: 12/14/18 Principal diagnosis: Infected diabetic ulcer of the left foot. Previous medical history of diabetic wounds to the left foot receiving treatment in the wound care center, non-insul in-dependent diabetes mellitus previously uncontrolled, coronary artery disease status post cardiac stents, last stent placed November 2017, hyperlipidemia, peripheral neuropathy, and orthopedic surgeries. The patient was seen and examined by Dr. Sparks, ambulatory around the room in no apparent distress. States he is feeling better, pain is controlled. No new concerns. Objective - Vital Signs Vital signs: Vital Signs Temp 98.3 F 12/14/18 07:00 Pulse 83 12/14/18 07:00 Resp 16 12/14/18 07:00 BP 106/73 12/14/18 07:00 Pulse Ox 98 12/14/18 07:00 Intake & Output 12/13/18 12/14/18 12/14/18 18:59 06:59 18:59 Intake Total 1212 500 Balance 1212 500 Weight 106.141 kg Intake: Intake, IV Titration 420 500 Amount Sodium Chloride 0.9% 1, 420 000 ml @ 60 mls/hr IV . [id number] [facility] Rx#:[id number] Vancomycin 1,750 mg In 500 Sodium Chloride 0.9% 500 ml 500 ml @ 167 mls/hr IVPB Q12HR [facility] Rx#: [id number] Oral 792 Other: Voiding Method Toilet # Voids 1 - Constitutional General appearance: Present: cooperative, no acute distress - Respiratory Details: Lungs sounds clear bilaterally. Respirations even, nonlabored. Currently on room air with oxygen saturation 98%. - Cardiovascular Details: S1, S2 present. Regular rate and rhythm. Palpable peripheral pulses bi laterally. No edema present. No calf pain or tenderness noted. - Gastrointestinal Gastrointestinal Comment(s): Abdomen soft, non-tenderd, non-distended. Active bowel sounds x 4 quadrants. Tolerating diet. - Genitourinary Genitourinary Comment(s): Continues to void - Integumentary Integumentary Comment(s): Skin is warm and dry. Dorsum of left foot with wounds present, see pictures and measurements in chart, looks better today. - Neurologic Neurologic: Present: CNII-XII intact - Musculoskeletal Musculoskeletal: Present: gait normal, strength equal bilaterally - Psychiatric Psychiatric: Present: A&O x's 3, appropriate affect, intact judgment & insight - Allied health notes Allied health notes reviewed: nursing - Labs CBC & Chem 7: 12/14/18 07:40 12/14/18 07:40 Labs: Abnormal Lab Results - Last 24 Hours (Table) 12/13/18 12/13/18 12/14/18 Range/Units 16:31 20:09 06:58 Glucose (74-99) mg/dL POC Glucose (mg/dL) 123 H 146 H 127 H (75-99) mg/dL 12/14/18 12/14/18 Range/Units 07:40 11:55 Glucose 182 H (74-99) mg/dL POC Glucose (mg/dL) 104 H (75-99) mg/dL Microbiology - Last 24 Hours (Table) 12/12/18 10:40 Gram Stain - Final Foot - Left Wound Culture - Final Staphylococcus aureus 12/12/18 10:40 Blood Culture - Preliminary Blood No Growth after 48 hours Assessment and Plan Assessment: 1. Infected diabetic ulcer of the left foot with history of osteomyelitis, cultures demonstrating preliminary staph aureus and group D enterococcus 2. Qyo-adiyqbr-dxskxwosk diabetes mellitus, most recent hemoglobin A1c 6.3% 3. Coronary artery disease status post stenting, last stent November 2017, currently on Brilinta 4. Hyperlipidemia 5. Peripheral neuropathy Plan: 1. Continue local wound care with Thera-Honey dressing changes daily 2. Patient is to be non-weight bearing on his left forefoot, will need walker 3. He will be scheduled for elective surgical debridement by Dr. Sparks next Saturday, December 22, 2018. Continue to hold Plavix 4. Antibiotics per infectious disease 5. May discharge to home when OK with other services Time with Patient: Greater than 30
--- NOTE | 2018-12-14 15:36 | P.PN ---
Subjective Progress Note Date: 12/14/18 Principal diagnosis: Diabetic infection left foot The patient had previous interventions by podiatry after having had an ulcer on the plantar left foot. He has subsequently undergone periods of antibiotics and wound care. He recently started HBO therapy. Late last week he developed increased swelling and redness of the area around the ulcer on the dorsum of his left forefoot. His white count on admission was only 5.1. His sugars have been much better controlled than they were early on in his disease. It should be noted that he was on Brilinta until today. Last dose was yesterday morning. Objective - Vital Signs Vital signs: Vital Signs Temp 98.3 F 12/14/18 07:00 Pulse 83 12/14/18 07:00 Resp 16 12/14/18 07:00 BP 106/73 12/14/18 07:00 Pulse Ox 98 12/14/18 07:00 Intake & Output 12/13/18 12/14/18 12/14/18 18:59 06:59 18:59 Intake Total 1212 500 Balance 1212 500 Weight 106.141 kg Intake: Intake, IV Titration 420 500 Amount Sodium Chloride 0.9% 1, 420 000 ml @ 60 mls/hr IV . [id number] [facility] Rx#:[id number] Vancomycin 1,750 mg In 500 Sodium Chloride 0.9% 500 ml 500 ml @ 167 mls/hr IVPB Q12HR [facility] Rx#: [id number] Oral 792 Other: Voiding Method Toilet # Voids 1 - Exam He does have a 1.5 x 1.5 cm ulcer with tendon and exposed on the dorsum of the left forefoot laterally. There is a moderate amount of redness around the area. There is significantly less swelling than on his admission. I reviewed his previous vascular studies which look suggest adequate flow for healing. - Labs CBC & Chem 7: 12/14/18 07:40 12/14/18 07:40 Labs: Abnormal Lab Results - Last 24 Hours (Table) 12/13/18 12/13/18 12/14/18 Range/Units 16:31 20:09 06:58 Glucose (74-99) mg/dL POC Glucose (mg/dL) 123 H 146 H 127 H (75-99) mg/dL 12/14/18 12/14/18 Range/Units 07:40 11:55 Glucose 182 H (74-99) mg/dL POC Glucose (mg/dL) 104 H (75-99) mg/dL Microbiology - Last 24 Hours (Table) 12/12/18 10:40 Gram Stain - Final Foot - Left Wound Culture - Final Staphylococcus aureus 12/12/18 10:40 Blood Culture - Preliminary Blood No Growth after 48 hours Assessment and Plan Assessment: Patient has an ulcer on the dorsum of his foot with a diabetic infection and probably some residual nonviable tissue within the depths of the wound. I have discussed with him options for therapy. Given their Brilinta, I have recommended that we schedule an elective procedure for next Friday. At that time we would perform a debridement which would be as aggressive as need be to remove all nonviable tissue from the area of the wound. This could include ampu tation of the fourth and fifth toes on the left foot. I have discussed with him the risk for requiring a BKA at some time. I discussed the possibility of transmetatarsal amputation. Our primary goal will be to debride and potentially close the wound with wound VAC or consider, once the infection and nonviable tissue is fully cleaned up a re-debridement with closure. He verbalizes an understanding of the options presented and the potential risks involved. He agrees to proceed as we've recommended. The patient may be discharged at the discretion of medicine and ID. I've instructed him in complete nonweightbearing on the left forefoot. He will require a walker for use when he is not specifically utilizing his knee scooter.
[2018-12-14 17:17] LABS: Glucose,Whole Blood 121 mg/dL (75-99)
[2018-12-14 20:33] LABS: Glucose,Whole Blood 141 mg/dL (75-99)
[2018-12-14] MEDS: ASPIRIN 81 MG PO SCH (20:51)
[2018-12-14] MEDS: ATORVASTATIN 40 MG TAB PO SCH (21:01)
--- NOTE | 2018-12-14 21:01 | PN ---
PROGRESS NOTE DATE OF SERVICE: 12/14/2018 This 53-year-old gentleman who was admitted with left diabetic foot ulcer, is being closely monitored. Infectious Disease and Dr. Sparks is following the patient closely. No chest pain. No palpitations. No fever. Cultures are pending at this time. EXAM: Alert and oriented x3. The pulse is 83. Blood pressure 106/76. Respiratory rate 16. Temperature 98.2, pulse ox 98% on room air. HEENT: Conjunctivae normal. NECK: No JVD. CARDIOVASCULAR: S1, S2 muffled. RESPIRATION: Breath sounds diminished in the bases. No rhonchi. No crackles. ABDOMEN soft. Nontender. NERVOUS SYSTEM: Left leg wound and ulcer present. LAB STUDIES: CBC within normal limits. Accu-Cheks are 104, 121. ASSESSMENT: 1. Left foot diabetic ulcer with failure of outpatient treatment. 2. History of left 4th metatarsal amputation and also osteomyelitis with antibiotic course. 3. Diabetes mellitus type 2, uncontrolled with hyperglycemia. 4. Hyperlipidemia. 5. History of coronary artery disease/ stent placement x5. 6. Diabetic peripheral neuropathy. 7. Bilateral diabetic retinopathy. 8. Chronic low back pain. 9. Deep vein thrombosis prophylaxis with heparin subcu. 10.Wound culture showing MSSA. RECOMMENDATIONS AND DISCUSSION: Recommend to continue current medications, continue to monitor, symptomatic treatment. Otherwise, at this time, I recommend continue to monitor. Closely follow with Infectious Disease. Patient is currently on vancomycin. We will continue to monitor. Further recommendations to follow. The patient is followed by Dr. Kwabena Bettencourt in the outpatient setting. MMODL / IJN: [id number] /
[2018-12-14] MEDS: ACETAMINOPHEN TAB 325 MG TAB PO PRN (21:10)
[2018-12-15] MEDS: SODIUM CHLORIDE 0.9% 1,000 ML IV SCH ×2 (05:17→21:00)
[2018-12-15 06:43] LABS: Glucose,Whole Blood 116 mg/dL (75-99)
[2018-12-15] MEDS: INSULIN ASPART (NovoLOG) 100 UNIT/ML VIAL SQ SCH ×4 (06:58→20:52)
[2018-12-15 07:26] LABS: African American GFR (CKD) >90 (>60 ml/min/1.73 sqM)
[2018-12-15] MEDS: LINAGLIPTIN 5 MG TABLET PO SCH (09:36)
[2018-12-15] MEDS: NON FORMULARY DRUG (Ertugliflozin Pidolate [Steglatro] 15 MG) PO SCH (09:36)
[2018-12-15] MEDS: metFORMIN 500 MG TAB PO SCH ×2 (09:36→17:39)
[2018-12-15] MEDS: VANCOMYCIN 1,750 MG in SODIUM CHLORIDE 0.9% 500 ML 500 ML IVPB SCH ×2 (09:36→20:57)
[2018-12-15] MEDS: HEPARIN SODIUM,PORCINE 5,000 UNIT/ML 1 ML VIAL SQ SCH ×3 (10:42→21:54)
[2018-12-15 11:51] LABS: Glucose,Whole Blood 119 mg/dL (75-99)
--- NOTE | 2018-12-15 13:29 | NM ---
EXAMINATION TYPE: NM bone 3 phase DATE OF EXAM: 12/15/2018 COMPARISON: X-ray 12/12/2018 left foot HISTORY: Swelling fourth and fifth digits left foot Triple phase bone scintigraphy was performed following the injection of 23.9 mCi Tc 99m MDP. Immedia te images and 4 hours post injection images acquired. FINDINGS: There is increased perfusion to the lateral margin of the left foot. There is increased soft tissue uptake overlying the left fourth fifth digits There is localized increased uptake involving the left fourth and fifth digits. IMPRESSION: 1. Cellulitis with osteomyelitis of the left fifth and fourth digits
[2018-12-15 16:39] LABS: Glucose,Whole Blood 105 mg/dL (75-99)
[2018-12-15 20:38] LABS: Glucose,Whole Blood 115 mg/dL (75-99)
[2018-12-15] MEDS: ASPIRIN 81 MG PO SCH (20:51)
[2018-12-15] MEDS: ATORVASTATIN 40 MG TAB PO SCH (20:59)
--- NOTE | 2018-12-15 23:13 | P.PN ---
Subjective Progress Note Date: 12/15/18 53-year-old male who has a history of diabetes mellitus poorly controlled for several years but has had extensive weight loss, and has excellent control his diabetes. In the summer underwent bone resection of the left foot. He had difficulty with ulceration is following the wound healing Center. He does not have adequate vascular supply. However has been having nonhealing ulceration and then developed worsening new ulcerations after starting hyperbaric oxygen therapy. With this he was admitted to hospital. There is no evidence of the bone scan that has evidence of underlying osteomyelitis of the left foot and plain films of the foot reveal evidence of progression of infection of the bony structure at the bony revision sites. He is being followed by vascular surgery with potentials for further surgical intervention the near future. Antibiotic therapy requested. Objective - Vital Signs Vital signs: Vital Signs Temp 98 F 12/15/18 19:09 Pulse 83 12/15/18 19:09 Resp 18 12/15/18 20:30 BP 125/80 12/15/18 19:09 Pulse Ox 97 12/15/18 19:09 Intake & Output 12/15/18 12/15/18 12/16/18 06:59 18:59 06:59 Intake Total 1220 1580 860 Balance 1220 1580 860 Intake: Intake, IV Titration 1220 980 860 Amount Sodium Chloride 0.9% 1, 720 480 360 000 ml @ 60 mls/hr IV . [id number] [facility] Rx#:[id number] Vancomycin 1,750 mg In 500 500 500 Sodium Chloride 0.9% 500 ml 500 ml @ 167 mls/hr IVPB Q12HR [facility] Rx#: [id number] Oral 600 Other: Voiding Method Toilet Toilet Toilet # Voids 3 - Exam HEENT: Anicteric conjunctiva are pink and moist nasal mucosa grossly intact without significant lesions, there is no thrush. Neck: The neck is supple without significant lymphadenopathy or thyromegaly. Lungs: Good bilateral air entry without significant crackles or wheezing. There is no significant bronchial sounds. There is no egophony or dullness. Heart: Regular rate and rhythm with an audible S1-S2, no S3 no S4. There is no significant murmur click or rub, PMI was nondisplaced. Abdomen: Positive bowel sounds soft and nontender without palpable masses or organomegaly. There was no guarding or rebound. Extremities: The upper extremities have excellent pulses they are symmetric, no significant petechiae or telangiectasia. No splinter hemorrhages were noted. Right lower extremities without acute abnormality. Left foot shows evidence of the chronic ulceration there is scant drainage appears to have tendon exposure. There is evidence of some eschar on the fourth and fifth toes on the dorsum. This is the site of the new recent ulcerations. The foot has some edema but does have evidence of generalized swelling. Neuro: Awake alert oriented to person place and time. There are no acute new gross focal sensory motor deficits. - Labs CBC & Chem 7: 12/14/18 07:40 12/15/18 06:34 Labs: Abnormal Lab Results - Last 24 Hours (Table) 12/15/18 12/15/18 12/15/18 Range/Units 06:42 11:40 16:38 POC Glucose (mg/dL) 116 H 119 H 105 H (75-99) mg/dL 12/15/18 Range/Units 20:26 POC Glucose (mg/dL) 115 H (75-99) mg/dL Microbiology - Last 24 Hours (Table) 12/12/18 10:40 Blood Culture - Preliminary Blood No Growth after 72 hours Laboratory Results WBC 5.1 k/uL (3.8-10.6) 12/14/18 07:40 RBC 5.48 m/uL (4.30-5.90) 12/14/18 07:40 Hgb 15.7 gm/dL (13.0-17.5) 12/14/18 07:40 Hct 46.4 % (39.0-53.0) 12/14/18 07:40 MCV 84.7 fL (80.0-100.0) 12/14/18 07:40 MCH 28.7 pg (25.0-35.0) 12/14/18 07:40 MCHC 33.9 g/dL (31.0-37.0) 12/14/18 07:40 RDW 13.8 % (11.5-15.5) 12/14/18 07:40 Plt Count 258 k/uL (150-450) 12/14/18 07:40 Neutrophils % 58 % 12/14/18 07:40 Lymphocytes % 22 % 12/14/18 07:40 Monocytes % 7 % 12/14/18 07:40 Eosinophils % 9 % 12/14/18 07:40 Basophils % 2 % 12/14/18 07:40 Neutrophils # 2.9 k/uL (1.3-7.7) 12/14/18 07:40 Lymphocytes # 1.1 k/uL (1.0-4.8) 12/14/18 07:40 Monocytes # 0.4 k/uL (0-1.0) 12/14/18 07:40 Eosinophils # 0.5 k/uL (0-0.7) 12/14/18 07:40 Basophils # 0.1 k/uL (0-0.2) 12/14/18 07:40 Sodium 140 mmol/L (137-145) 12/14/18 07:40 Potassium 4.9 mmol/L (3.5-5.1) 12/14/18 07:40 Chloride 106 mmol/L (98-107) 12/14/18 07:40 Carbon Dioxide 27 mmol/L (22-30) 12/14/18 07:40 Anion Gap 7 mmol/L 12/14/18 07:40 BUN 14 mg/dL (9-20) 12/14/18 07:40 Creatinine 0.85 mg/dL (0.66-1.25) 12/15/18 06:34 Est GFR (CKD-EPI)AfAm >90 (>60 ml/min/1.73 sqM) 12/15/18 06:34 Est GFR (CKD-EPI)NonAf >90 (>60 ml/min/1.73 sqM) 12/15/18 06:34 Glucose 182 mg/dL (74-99) H 12/14/18 07:40 POC Glucose (mg/dL) 115 mg/dL (75-99) H 12/15/18 20:26 POC Glu Csm Consultant ID Melissa Pantoja 12/15/18 20:26 Calcium 9.0 mg/dL (8.4-10.2) 12/14/18 07:40 Total Bilirubin 0.5 mg/dL (0.2-1.3) 12/12/18 10:40 AST 40 U/L (17-59) 12/12/18 10:40 ALT 35 U/L (21-72) 12/12/18 10:40 Alkaline Phosphatase 66 U/L (38-126) 12/12/18 10:40 Total Protein 7.4 g/dL (6.3-8.2) 12/12/18 10:40 Albumin 4.3 g/dL (3.5-5.0) 12/12/18 10:40 Vancomycin Trough 14.0 ug/mL 12/14/18 07:40 Microbiology 12/12/18 10:40 Blood Blood Culture - Preliminary No Growth after 72 hours 12/12/18 10:40 Foot - Left Gram Stain - Final 12/12/18 10:40 Foot - Left Wound Culture - Final Staphylococcus aureus Outpatient culture with MSSA, enterococcus and anaerobic gram-positive cocci - Imaging and Cardiology Bone scan and foot x-ray of the left disability with the radiologist showing evidence of the progression of bony destruction consistent with osteomyelitis Assessment and Plan (1) Osteomyelitis of foot, left, acute Narrative/Plan: 53-year-old male presents to Hospital with worsening of the left foot wound on the dorsum of the foot with new ulcerations forming on the fourth and fifth toes with increasing swelling and cellulitis. Patient is being treated with antibiotic therapy is showing some improvement. Over the bone scan and plain films reveal evidence of progression of bony infection. He is been seen by surgery and there are plans for surgical intervention the near future. Regarding shows evidence of progressive osteomyelitis to the area and constantly antibiotic therapy will be initiated in the home setting. Invanz 1 g IV pig gyback daily should be effective for the MSSA, enterococcus, and anaerobic gram- positive cocci that have recently been isolated. Local wound care with therahoney is adequate for now. Elevation of the foot rest is important. Is much nonweightbearing as possible. He does relate that he is off work and is on short-term disability. Working with the [employer] to ensure that he has home IV antibiotic therapy set upof PICC line has been requested. He'll follow- up in the outpatient wound center. Current Visit: Yes Status: Acute Code(s): M86.172 - OTHER ACUTE OSTEOMYELITIS, LEFT ANKLE AND FOOT SNOMED Code(s): 1970157972674543 (2) Diabetic ulcer of left foot associated with diabetes mellitus due to underlying condition, with fat layer exposed Current Visit: Yes Status: Acute Code(s): E08.621 - DIABETES MELLITUS DUE TO UNDERLYING CONDITION W FOOT ULCER; L97.522 - NON-PRS CHRONIC ULCER OTH PRT LEFT FOOT W FAT LAYER EXPOSED SNOMED Code(s): 356477536 (3) Failure of outpatient treatment Current Visit: No Status: Acute Code(s): Z78.9 - OTHER SPECIFIED HEALTH STAT SNOMED Code(s): 784830115
--- NOTE | 2018-12-15 23:37 | PN ---
PROGRESS NOTE DATE OF SERVICE: 12/15/2018 This 53-year-old gentleman admitted with left foot diabetic ulcer is being evaluated for the possibility of osteomyelitis. A bone scan done showed cellulitis with osteomyelitis of the left fifth and third digits. Dr. Morales is following the patient closely and cultures are showing MSSA. Outpatient IV antibiotic treatment is recommended. No chest pain. No palpitations. No fever. On exam, alert and oriented x3. Pulse 83, blood pressure 128/50, respirations 16, temperature 98 degrees, pulse ox 97% on room air. HEENT: Conjunctivae normal. NECK: No jugular venous distention. CARDIOVASCULAR SYSTEM: S1, S2 muffled. RESPIRATORY SYSTEM: Breath sounds diminished at the bases. No rhonchi. No crackles. ABDOMEN: Soft. LEFT FOOT: Osteomyelitis present. Ulcer present. NERVOUS SYSTEM: No focal deficit. LABS: CBC within normal limits. Glucose 115. ASSESSMENT: 1. Acute left foot diabetic ulcer with osteomyelitis with cellulitis and failure of outpatient treatment. 2. History of left fourth metatarsal amputation and also osteomyelitis with antibiotic course previously. 3. Diabetes mellitus, type 2, uncontrolled, with hyperglycemia. 4. Hyperlipidemia. 5. History of coronary artery disease and stent x5. 6. Diabetic peripheral neuropathy. 7. Diabetic retinopathy. 8. Chronic low back pain. 9. Deep venous thrombosis prophylaxis. 10.Wound culture showing methicillin-susceptible Staphylococcus aeruginosa. RECOMMENDATIONS AND DISCUSSION: I recommend to continue current medications, continue with symptomatic treatment. Continue with the monitoring. PICC line. IV antibiotics. Closely follow with Infectious Disease. Guarded prognosis. Further recommendations to follow. MMODL / IJN: [id number] /
[2018-12-16 06:52] LABS: Glucose,Whole Blood 121 mg/dL (75-99)
[2018-12-16 07:29] VITALS: BP 110/73; PULSE 75; RESP 18; TEMP 98.5
[2018-12-16] MEDS: INSULIN ASPART (NovoLOG) 100 UNIT/ML VIAL SQ SCH ×2 (08:30→13:54)
[2018-12-16] MEDS: LINAGLIPTIN 5 MG TABLET PO SCH (08:33)
[2018-12-16] MEDS: metFORMIN 500 MG TAB PO SCH (08:33)
[2018-12-16] MEDS: NON FORMULARY DRUG (Ertugliflozin Pidolate [Steglatro] 15 MG) PO SCH (08:33)
[2018-12-16] MEDS: HEPARIN SODIUM,PORCINE 5,000 UNIT/ML 1 ML VIAL SQ SCH (08:43)
[2018-12-16] MEDS ORDERED: ERTAPENEM 1 GM in SODIUM CHLORIDE 0.9% 50 ML IVPB STA (08:45)
[2018-12-16 11:19] LABS: Glucose,Whole Blood 108 mg/dL (75-99)
[2018-12-16] MEDS ORDERED: LIDOCAINE 1% INJ 10MG/ML (20 ML MDV) ONE (12:42)
[2018-12-16] MEDS ORDERED: LIDOCAINE 1% INJ 10MG/ML (20 ML MDV) SQ ONE (12:48)
[2018-12-16] MEDS ORDERED: VANCOMYCIN 2,000 MG in SODIUM CHLORIDE 0.9% 500 ML 500 ML IVPB SCH (21:00)
--- NOTE | 2018-12-17 11:06 | DS ---
DISCHARGE SUMMARY DATE OF SERVICE: 12/16/2018 FINAL DIAGNOSES: 1. Acute left foot diabetic ulcer with osteomyelitis with cellulitis and failure of outpatient treatment secondary to methicillin-sensitive Staphylooccus aureus. 2. History of left fourth metatarsal amputation and also osteomyelitis with antibiotic courses previously. 3. Diabetes mellitus type 2, uncontrolled with hyperglycemia. 4. Hyperlipidemia. 5. History of coronary artery disease stent x5. 6. Diabetic peripheral neuropathy. 7. Diabetic retinopathy. 8. Chronic low back pain. 9. Deep venous thrombosis prophylaxis. 10.Wound culture showing methicillin-sensitive Staphylococcus aureus. DISCHARGE DISPOSITION: Patient will be discharged in a stable condition with guarded prognosis. Total time taken 35 minutes. HISTORY OF PRESENT ILLNESS: This is a 53-year-old gentleman with a past medical history of multiple medical problems admitted with acute left foot diabetic ulcer and osteomyelitis. Patient treated with IV antibiotics, MSSA revealed from the cultures. Infectious Disease, Dr. Morales saw the patient as well as Wound Care. The patient improved significantly. On exam, vitals are stable. CARDIOVASCULAR SYSTEM: S1, S2. ABDOMEN: Soft. NERVOUS SYSTEM: No focal deficits. DISCHARGE ADVICE: 1. Diet is cardiac diet. 2. Activity limited until followup. 3. Follow up with Dr. Kwabena Bettencourt in 2-3 days. 4. Follow up with Dr. Morales as recommended. 5. PICC line and outpatient IV antibiotics also arranged. MEDICATIONS: 1. Ecotrin 81 mg q.h.s. 2. Brilinta 90 mg p.o. b.i.d. 3. Glucophage 1000 mg p.o. b.i.d. 4. Januvia 100 mg p.o. daily. 5. Lipitor 40 mg q.h.s. 6. Steglarto 15 mg p.o. daily. 7. Invanz 1 g IV daily for 42 days. 8. Tylenol p.r.n. Once again, the patient will be discharged in stable condition with guarded prognosis. MMODL / IJN: [id number] /
--- NOTE | 2018-12-17 16:02 | IR ---
PICC LINE PLACEMENT: HISTORY: Infection requiring long-term antibiotic therapy PROCEDURE: Ultrasound and fluoroscopic guidance of PICC line placement. COMPLICATIONS: None ANESTHESIA: 1. 1% Lidocaine locally. FINDINGS/TECHNIQUE: The procedure was explained to the patient. The risks, complications, benefits and alternatives were discussed and any questions were answered. Informed consent was obtained. The patient was placed supine on the fluoroscopic table and prepped and draped in the usual sterile fash ion. Utilizing a 21 gauge needle and sonographic and fluoroscopic guidance, access in the left basi lic vein was achieved and there is placement of a 0.018 guidewire. The vein is patent. A 4-F sheath was placed over the guidewire. The guidewire and dilator were removed and a 4-F. PICC line was plac ed through the sheath with the tip at the level of the SVC. The sheath was removed, the catheter was flushed and sutured into position. The patient was stable throughout the procedure and remained sta ble upon discharge from the Department of Radiology. The vein puncture was patent under ultrasound. A scale image was obtained to document patency of the vein punctured. All elements of the maximal barrier technique were utilized. FLUOROSCOPY TIME: 0.3 minutes and one image submitted IMPRESSION: Successful PICC line placement under ultrasound and fluoroscopic guidance.
== END 2018-12-16 15:23 | disposition home health service (06) | DRG 638 ==
LOC: EC 10:10 → 4SSUR 11:30
PROVIDERS: ADMIT Hospitalist; ATTEND Hospitalist
PROC: 02HV33Z Insertion of Infusion Device into Superior Vena Cava, Percutaneous Approach (ICD-10-PCS; principal; 2018-12-16 07:30)
DX: E11.69 Type 2 diabetes mellitus with other specified complication (principal); M86.172 Other acute osteomyelitis, left ankle and foot; E11.621 Type 2 diabetes mellitus with foot ulcer; E11.319 Type 2 diabetes mellitus with unspecified diabetic retinopathy without macular edema; E11.42 Type 2 diabetes mellitus with diabetic polyneuropathy; E11.65 Type 2 diabetes mellitus with hyperglycemia; E78.5 Hyperlipidemia, unspecified; G89.29 Other chronic pain; M54.5 Low back pain; I25.10 Atherosclerotic heart disease of native coronary artery without angina pectoris; Z79.02 Long term (current) use of antithrombotics/antiplatelets; Z79.2 Long term (current) use of antibiotics; Z79.82 Long term (current) use of aspirin; Z79.84 Long term (current) use of oral hypoglycemic drugs; Z79.899 Other long term (current) drug therapy; Z80.1 Family history of malignant neoplasm of trachea, bronchus and lung; Z82.49 Family history of ischemic heart disease and other diseases of the circulatory system; Z83.3 Family history of diabetes mellitus; Z88.0 Allergy status to penicillin; Z95.5 Presence of coronary angioplasty implant and graft; Z87.01 Personal history of pneumonia (recurrent); Z98.890 Other specified postprocedural states
CPT/HCPCS: 36415; 36573; 78315; 80048; 80053; 80202; 82565; 85025; 87040; 87070; 87077; 87186; 87205; 99284

== ENCOUNTER 2018-12-22 06:57 | Day surgery (SDC) | payer OTHER ==
[2018-12-17 14:51] VITALS: BMI 36.6
[~2018-12-22 06:57] MED LIST changes: +DEXAMETHASONE SOD PHOSPHATE 10 MG/ML 1 ML VIAL IV ONE; +HYDROmorphone 0.5 MG/0.5 ML SYRINGE IVP PRN; +LACTATED RINGERS 1,000 ML IV SCH; +LIDOCAINE 1% 20 ML VIAL (10MG/ML) FOR IV START INTRADERMA PRN; +MIDAZOLAM 2 MG/2 ML VIAL IV PRN; +ONDANSETRON 4 MG/2 ML VIAL IVP ONE; +Pre Op ABX Message 1 EACH MISC MISCELLANE ONE; +SCOPOLAMINE 1.5MG/72HR PATCH TRANSDERM ONE; -cefTRIAXone 1,000 MG VIAL (IM USE) IM NR
[2018-12-22 07:45] LABS: Glucose,Whole Blood 156 mg/dL (75-99)
[2018-12-22 07:50] VITALS: RESP 16; TEMP 98.5
--- NOTE | 2018-12-22 08:14 | P.GSHP ---
History of Present Illness H&P Date: 12/22/18 Chief Complaint: Ulcer left foot with osteomyelitis The patient has an ulcer on the dorsum left foot with nonhealing and x-ray suspicion for osteomyelitis - Constitutional Constitutional: Denies chills, Denies fever - EENT Eyes: denies blurred vision, denies pain Ears, nose, mouth and throat: Denies headache, Denies sore throat - Cardiovascular Cardiovascular: Denies chest pain, Denies shortness of breath - Respiratory Respiratory: Denies cough, Denies 7 - Gastrointestinal Gastrointestinal: Denies abdominal pain, Denies diarrhea, Denies nausea, Denies vomiting - Genitourinary (Female) Genitourinary: Denies dysuria, Denies hematuria - Genitourinary (Male) Genitourinary: Denies dysuria, Denies hematuria - Musculoskeletal Musculoskeletal: Denies myalgias - Integumentary Integumentary: Denies pruritus, Denies rash - Neurological Neurological: Denies numbness, Denies weakness - Psychiatric Psychiatric: Denies anxiety, Denies depression - Endocrine Endocrine: Denies fatigue, Denies weight change Past Medical History Past Medical History: Coronary Artery Disease (CAD), Diabetes Mellitus, Eye Disorder, Hyperlipidemia, Pneumonia Additional Past Medical History / Comment(s): NIDDM type II, neuropathy bilateral feet and hands, bilateral eye retinopathy, R eye glaucoma and the starting of cataracts bilateral eyes, bronchitis, chronic low back pain, some claustrophobia, current L planter ulcer.osteomylitis History of Any Multi-Drug Resistant Organisms: None Reported Past Surgical History: Back Surgery, Heart Catheterization With Stent, Orthopedic Surgery Additional Past Surgical History / Comment(s): Lumbar discectomy, PCI wit total of 5 stents done at [facility] (last stent placed in November [address] Dooley), L foot debridement by cellular tower climber, L rotator cuff repair, nasal fracture with surgery. HAS LT ARM PICC LINE Past Anesthesia/Blood Transfusion Reactions: No Reported Reaction Date of Last Stent Placement:: 2017 Smoking Status: Never smoker - Past Family History Father Family Medical History: Cancer, Coronary Artery Disease (CAD), Diabetes Mellitus Additional Family Medical History / Comment(s): Father had lung cancer. He was a smoker. He was also diabetic and had heart disease which he of at the age of 67yrs. Mother Family Medical History: Coronary Artery Disease (CAD), Diabetes Mellitus Additional Family Medical History / Comment(s): Mother had a pacer and AICD. She of heart disease at the age of 77yrs. Medications and Allergies Home Medications Medication Instructions Recorded Confirmed Type Aspirin [Adult Low Dose Aspirin EC] 81 mg PO HS 08/06/18 12/22/18 History Atorvastatin [Lipitor] 40 mg PO HS 08/06/18 12/22/18 History Ertugliflozin Pidolate [Steglatro] 15 mg PO DAILY 08/06/18 12/22/18 History Ticagrelor [Brilinta] 90 mg PO BID 08/06/18 12/22/18 History metFORMIN HCL [Glucophage] 1,000 mg PO BID 08/06/18 12/22/18 History sitaGLIPtin [Januvia] 100 mg PO DAILY 08/06/18 12/22/18 History Ertapenem [INVanz] 1 gm IVPB Q24H #42 bag 12/15/18 12/22/18 Rx Acetaminophen Tab [Tylenol] 650 mg PO Q6HR PRN tab 12/16/18 12/22/18 Rx Allergies Allergy/AdvReac Type Severity Reaction Status Date / Time Penicillins Allergy Anaphylaxis Verified 12/22/18 07:40 Surgical - Exam Osteopathic Statement: *. No significant issues noted on an osteopathic structural exam other than those noted in the History and Physical/Consult. Vital Signs Temp Pulse Resp BP Pulse Ox 98.5 F 91 16 142/81 100 12/22/18 07:32 12/22/18 07:32 12/22/18 07:32 12/22/18 07:32 12/22/18 07:32 - General well developed, well nourished, no distress - Eyes normal ocular movement, no icteric - ENT no hearing loss, no congestion - Neck no masses, trachea midline - Respiratory normal respiratory effort, clear to auscultation - Abdomen Abdomen: soft, non tender, no guarding, no rigid, no rebound - Integumentary no rash, no abnormal pigmentation - Neurologic no disoriented, no combative - Musculoskeletal Open ulcer dorsum left foot with surrounding rubor - Psychiatric oriented to time, oriented to person, oriented to place, speech is normal, memory intact Results - Labs Abnormal Lab Results - Last 24 Hours (Table) 12/22/18 Range/Units 07:37 POC Glucose (mg/dL) 156 H (75-99) mg/dL
[2018-12-22] MEDS ORDERED: fentaNYL (PF) 50 MCG/ML 2 ML AMP ONE (08:22)
[2018-12-22] MEDS ORDERED: KETAMINE 10 MG/ML 20 ML VIAL ONE (08:22)
[2018-12-22] MEDS ORDERED: PROPOFOL 10 MG/ML 20 ML VIAL IV ONE (08:22)
[2018-12-22] MEDS ORDERED: MIDAZOLAM 2 MG/2 ML VIAL ONE (08:22)
--- NOTE | 2018-12-22 08:51 | P.OP ---
Date of Procedure: 12/22/18 Preoperative Diagnosis: Osteomyelitis distal fourth metatarsal Postoperative Diagnosis: Same Procedure(s) Performed: Debridement of the left foot including bone Anesthesia: MAC Surgeon: Larry Sparks Estimated Blood Loss (ml): 20 Pathology: other (Bone for culture) Condition: stable Disposition: PACU Indications for Procedure: The patient has a refractory area of osteomyelitis with open ulcer on the dorsum of his left foot Operative Findings: On exploration we did find a area of mushy bone at the distal fourth metatarsal head and some on the proximal head of the fourth phalanx suspicious prostate myelitis. There were some soft tissue abnormalities immediately adjacent but the rest of the soft tissues were fairly healthy Description of Procedure: With the patient spine position, under benefit of IV sedation, we prepped and draped in standard fashion. We used a rongeur and scalpel to remove some overlying tendon and remove nonviable soft tissues as well as the distal head of the fourth metatarsal and the proximal head of the fourth phalanx. We'll a smooth end points above the soft tissue on both ends. Absorptive silver was used to pack the wound and sterile dressings were applied. The patient tolerated the procedure well and was taken recovery area in stable condition.
[2018-12-22] MEDS ORDERED: ACETAMINOPHEN TAB 500 MG TAB PO ONE (09:21)
[2018-12-22 09:26] VITALS: BP 121/80; PULSE 80
--- NOTE | 2018-12-27 06:43 | CDI ---
Outpatient Documentation Clarification Form Date: 12/27/18 CDS/Shake Cutter name: Zahida Gramajo Phone: If any questions, call Marie Carvalho Foreclosure Home Inspector at [phone] Patient Name: Aston Fajardo Admit Date: 12/22/18 Discharge Date: 12/22/18 ATTENTION: The [facility] Coding Staff appreciate you assistance in clarifying documentation. Please respond to the clarification below the line at the bottom and electronically sign. The [facility] Coding Staff with review the response and follow-up as needed. Please Note: Queries are made part of the Legal Health Record. If you have any questions, please contact the Foreclosure Home Inspector. Dear Dr. Sparks, Please provide clarification as to the size of the debridement that was performed. Thank you for your kind consideration. ____ The surface measurement of the debridement was about 1.4 x 1.5 cm. The debridement then had a depth of about 1.5 cm and included the distal head of the fourth metatarsal and the proximal head of the fourth phalanx. MTDD
== END 2018-12-22 09:51 | disposition home or self-care (01) ==
LOC: OR 06:57
PROVIDERS: ATTEND Thoracic Surgery (Cardiothoracic Vascular Surgery)
DX: E11.69 Type 2 diabetes mellitus with other specified complication (principal); M86.8X7 Other osteomyelitis, ankle and foot; E11.621 Type 2 diabetes mellitus with foot ulcer; L97.524 Non-pressure chronic ulcer of other part of left foot with necrosis of bone; E11.42 Type 2 diabetes mellitus with diabetic polyneuropathy; E11.319 Type 2 diabetes mellitus with unspecified diabetic retinopathy without macular edema; E11.39 Type 2 diabetes mellitus with other diabetic ophthalmic complication; E11.36 Type 2 diabetes mellitus with diabetic cataract; H40.9 Unspecified glaucoma; H42 Glaucoma in diseases classified elsewhere; H26.9 Unspecified cataract; J42 Unspecified chronic bronchitis; G89.29 Other chronic pain; E66.9 Obesity, unspecified; Z68.36 Body mass index [BMI] 36.0-36.9, adult; M54.5 Low back pain; F40.240 Claustrophobia; Z95.5 Presence of coronary angioplasty implant and graft; Z87.01 Personal history of pneumonia (recurrent); Z95.828 Presence of other vascular implants and grafts; I25.10 Atherosclerotic heart disease of native coronary artery without angina pectoris; Z82.49 Family history of ischemic heart disease and other diseases of the circulatory system; Z83.3 Family history of diabetes mellitus; Z80.1 Family history of malignant neoplasm of trachea, bronchus and lung; Z79.84 Long term (current) use of oral hypoglycemic drugs; Z79.02 Long term (current) use of antithrombotics/antiplatelets; Z79.82 Long term (current) use of aspirin; Z79.899 Other long term (current) drug therapy; Z88.0 Allergy status to penicillin
CPT/HCPCS: 11044; 87070; 87205; 87075; 87077; 87186; J2250; J1100; J2405; J3010; J2704; 93005

== ENCOUNTER 2018-12-30 12:03 | Emergency (ER) | payer OTHER ==
[2018-12-30 13:22] LABS: Basophils % (A) 1 %; Eosinophils # (A) 0.3 k/uL (0-0.7); Eosinophils % (A) 6 %; HCT 41.3 % (39.0-53.0); HGB 14.6 gm/dL (13.0-17.5); Lymphocytes % (A) 19 %; MCH 29.1 pg (25.0-35.0); MCHC 35.2 g/dL (31.0-37.0); MCV 82.6 fL (80.0-100.0); Mean Platelet Volume 5.9; Monocytes # (A) 0.3 k/uL (0-1.0); Monocytes % (A) 6 %; Neutrophils # (A) 3.5 k/uL (1.3-7.7); Neutrophils % (A) 66 %; Platelet Count 232 k/uL (150-450); RBC 5.01 m/uL (4.30-5.90); RDW 13.3 % (11.5-15.5); WBC 5.4 k/uL (3.8-10.6)
[2018-12-30 13:26] LABS: ALT 33 U/L (21-72); AST 28 U/L (17-59); African American GFR (CKD) >90 (>60 ml/min/1.73 sqM); Alkaline Phosphatase 68 U/L (38-126); Anion Gap 9 mmol/L; Blood Urea Nitrogen 16 mg/dL (9-20); Carbon Dioxide 24 mmol/L (22-30); Chloride 106 mmol/L (98-107); Glucose 116 mg/dL (74-99); Potassium 4.1 mmol/L (3.5-5.1); Sodium 139 mmol/L (137-145); Total Bilirubin 0.6 mg/dL (0.2-1.3); Total Protein 6.9 g/dL (6.3-8.2)
[2018-12-30 13:29] VITALS: RESP 20; TEMP 99
[2018-12-30 13:31] VITALS: BP 112/73
--- NOTE | 2018-12-30 13:50 | ED ---
Recheck HPI - General Chief Complaint: Recheck/Abnormal Lab/Rx Stated Complaint: High potassium Time Seen by Provider: 12/30/18 12:25 Source: patient Mode of arrival: ambulatory Limitations: no limitations - History of Present Illness Initial Comments: Patient is a 53-year-old male presenting to the emergency department after being sent in by his PCP for an elevated potassium. Patient states he had blood work drawn at his house 2 days ago that showed a potassium 5.8. Patient is currently being treated for a diabetic ulcer of his left foot and has a PICC line as his is receiving antibiotics once a day. Patient has had regular follow-up with his PCP and Dr. Morales. Patient denies any recent fever, chills, nausea, vomiting. Patient has no other complaints today. Patient states he "feels great and did not want to come in." Patient has no other complaints at this time. Upon arrival to the ER, vital signs are stable. - Related Data Home Medications Medication Instructions Recorded Confirmed Aspirin [Adult Low Dose Aspirin EC] 81 mg PO HS 08/06/18 12/22/18 Atorvastatin [Lipitor] 40 mg PO HS 08/06/18 12/22/18 Ertugliflozin Pidolate [Steglatro] 15 mg PO DAILY 08/06/18 12/22/18 Ticagrelor [Brilinta] 90 mg PO BID 08/06/18 12/22/18 metFORMIN HCL [Glucophage] 1,000 mg PO BID 08/06/18 12/22/18 sitaGLIPtin [Januvia] 100 mg PO DAILY 08/06/18 12/22/18 Previous Rx's Medication Instructions Recorded Ertapenem [INVanz] 1 gm IVPB Q24H #42 bag 12/15/18 Acetaminophen Tab [Tylenol] 650 mg PO Q6HR PRN tab 12/16/18 Allergies Allergy/AdvReac Type Severity Reaction Status Date / Time Penicillins Allergy Anaphylaxis Verified 12/30/18 12:10 Review of Systems ROS Statement: Those systems with pertinent positive or pertinent negative responses have been documented in the HPI. ROS Other: All systems not noted in ROS Statement are negative. Past Medical History Past Medical History: Coronary Artery Disease (CAD), Diabetes Mellitus, Eye Disorder, Hyperlipidemia, Pneumonia Additional Past Medical History / Comment(s): NIDDM type II, neuropathy bilateral feet and hands, bilateral eye retinopathy, R eye glaucoma and the starting of cataracts bilateral eyes, bronchitis, chronic low back pain, some claustrophobia, current L planter ulcer.osteomylitis History of Any Multi-Drug Resistant Organisms: None Reported Past Surgical History: Back Surgery, Heart Catheterization With Stent, Orthopedic Surgery Additional Past Surgical History / Comment(s): Lumbar discectomy, PCI wit total of 5 stents done at [facility] (last stent placed in November [address] Dooley), L foot debridement by printing roller handler, L rotator cuff repair, nasal fracture with surgery. HAS LT ARM PICC LINE Past Anesthesia/Blood Transfusion Reactions: No Reported Reaction Date of Last Stent Placement:: 2017 Past Psychological History: No Psychological Hx Reported Smoking Status: Never smoker - Past Family History Father Family Medical History: Cancer, Coronary Artery Disease (CAD), Diabetes Mellitus Additional Family Medical History / Comment(s): Father had lung cancer. He was a smoker. He was also diabetic and had heart disease which he of at the age of 67yrs. Mother Family Medical History: Coronary Artery Disease (CAD), Diabetes Mellitus Additional Family Medical History / Comment(s): Mother had a pacer and AICD. She of heart disease at the age of 77yrs. General Exam - General Exam Comments Initial Comments: GENERAL: Well-appearing, well-nourished and in no acute distress. HEAD: Atraumatic, normocephalic. EYES: Pupils equal round and reactive to light, extraocular movements intact, sclera anicteric, conjunctiva are normal. ENT: TMs normal, nares patent, oropharynx clear without exudates. Moist mucous membranes. NECK: Normal range of motion, supple without lymphadenopathy or JVD. LUNGS: Breath sounds clear to auscultation bilaterally and equal. No wheezes rales or rhonchi. HEART: Regular rate and rhythm without murmurs, rubs or gallops. ABDOMEN: Soft, nontender, normoactive bowel sounds. No guarding, no rebound. No masses appreciated. EXTREMITIES: Normal range of motion, no pitting or edema. No clubbing or cyanosis. Patient has healing diabetic ulcer and recent surgery to dorsal aspect of the left foot. There are no signs of infection at this time. NEUROLOGICAL: Cranial nerves II through XII grossly intact. Normal speech, normal gait. PSYCH: Normal mood, normal affect. SKIN: Warm, Dry, normal turgor, no rashes or lesions noted. Limitations: no limitations Course Vital Signs 12/30/18 12/30/18 12/30/18 12:06 12:09 13:09 Temperature 97.7 F 99 F Pulse Rate 77 82 83 Respiratory 18 20 20 Rate Blood Pressure 127/83 116/98 112/73 O2 Sat by Pulse 97 98 99 Oximetry 12/30/18 13:54 Temperature Pulse Rate 85 Respiratory 20 Rate Blood Pressure 112/73 O2 Sat by Pulse 99 Oximetry Medical Decision Making - Medical Decision Making Patient is a 53-year-old male sent in for an elevated potassium at 5.8. Patient's exam is unremarkable today. Vital signs are normal today. Blood work today is normal, potassium is 4.1. It was discussed with patient that his blood work before was possibly hemolyzed. Patient is stable for discharge at this time. Return parameters were discussed with the patient he verbalizes understanding. Case discussed with Dr. Monet. - Lab Data Result diagrams: 12/30/18 13:05 12/30/18 13:05 Lab Results 12/30/18 12/30/18 Range/Units 13:05 13:05 WBC 5.4 (3.8-10.6) k/uL RBC 5.01 (4.30-5.90) m/uL Hgb 14.6 (13.0-17.5) gm/dL Hct 41.3 (39.0-53.0) % MCV 82.6 (80.0-100.0) fL MCH 29.1 (25.0-35.0) pg MCHC 35.2 (31.0-37.0) g/dL RDW 13.3 (11.5-15.5) % Plt Count 232 (150-450) k/uL Neutrophils % 66 % Lymphocytes % 19 % Monocytes % 6 % Eosinophils % 6 % Basophils % 1 % Neutrophils # 3.5 (1.3-7.7) k/uL Lymphocytes # 1.0 (1.0-4.8) k/uL Monocytes # 0.3 (0-1.0) k/uL Eosinophils # 0.3 (0-0.7) k/uL Basophils # 0.0 (0-0.2) k/uL Sodium 139 (137-145) mmol/L Potassium 4.1 (3.5-5.1) mmol/L Chloride 106 (98-107) mmol/L Carbon Dioxide 24 (22-30) mmol/L Anion Gap 9 mmol/L BUN 16 (9-20) mg/dL Creatinine 0.79 (0.66-1.25) mg/dL Est GFR (CKD-EPI)AfAm >90 (>60 ml/min/1.73 sqM) Est GFR (CKD-EPI)NonAf >90 (>60 ml/min/1.73 sqM) Glucose 116 H (74-99) mg/dL Calcium 9.0 (8.4-10.2) mg/dL Total Bilirubin 0.6 (0.2-1.3) mg/dL AST 28 (17-59) U/L ALT 33 (21-72) U/L Alkaline Phosphatase 68 (38-126) U/L Total Protein 6.9 (6.3-8.2) g/dL Albumin 4.0 (3.5-5.0) g/dL Disposition Clinical Impression: Hx of osteomyelitis, Ulcer Disposition: HOME SELF-CARE Condition: Stable Instructions (If sedation given, give patient instructions): Normal Exam (ED) Additional Instructions: Please return to the Emergency Department if symptoms worsen or any other concerns. Follow-up with PCP. Lab work today was normal. Is patient prescribed a controlled substance at d/c from ED?: No Referrals: Kwabena Bettencourt MD [Primary Care Provider] - 1-2 days
[2018-12-30 13:55] VITALS: PULSE 85
== END 2018-12-30 13:57 | disposition home or self-care (01) ==
LOC: EC 12:03
DX: E11.621 Type 2 diabetes mellitus with foot ulcer (principal); L97.529 Non-pressure chronic ulcer of other part of left foot with unspecified severity; I25.10 Atherosclerotic heart disease of native coronary artery without angina pectoris; E11.42 Type 2 diabetes mellitus with diabetic polyneuropathy; E11.319 Type 2 diabetes mellitus with unspecified diabetic retinopathy without macular edema; E78.5 Hyperlipidemia, unspecified; Z88.0 Allergy status to penicillin; Z79.02 Long term (current) use of antithrombotics/antiplatelets; Z79.82 Long term (current) use of aspirin; Z79.84 Long term (current) use of oral hypoglycemic drugs; Z79.899 Other long term (current) drug therapy; Z95.5 Presence of coronary angioplasty implant and graft; Z95.828 Presence of other vascular implants and grafts; Z87.39 Personal history of other diseases of the musculoskeletal system and connective tissue; Z98.890 Other specified postprocedural states; Z83.3 Family history of diabetes mellitus
CPT/HCPCS: 36415; 80053; 85025; 99284